=== PATIENT | female | born 1950 | race Caucasian/White ===

== ENCOUNTER 2017-01-21 06:07 | Inpatient (IN) ==
[2017-01-21] MEDS ORDERED: CeFAZolin Pre 2,000 MG/100 ML 2,000 MG/100 ML BAG IVPB ONE (06:33)
[2017-01-21] MEDS ORDERED: Plasma-Lyte A (PH 7.4) 1,000 ML IVC SCH (06:45)
--- NOTE | 2017-01-21 07:18 | Anesthesia Evaluation PreOp ---
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: Denies Any Significant HX Other Medical History: Renal (stage 3 CKD), Diabetes Type II, Thyroid, GERD Anesthesia History: No Prior Anesthetic Complications, Past Anesthesia ( hysterectomy) Alcohol Use: none Drug use: none Medications and Allergies Amlodipine [Amlodipine Besylate] 10 mg PO DAILY 11/28/14 [History] Lisinopril [Zestril] 20 mg PO BID 11/28/14 [History] Pravastatin Sodium [Pravachol] 20 mg PO DAILY 11/28/14 [History] Albuterol Sulfate [Albuterol Inhaler] 2 puff IH Q4HR PRN 01/11/15 [History] Gabapentin [Neurontin] 600 mg PO HS 01/11/15 [History] Meclizine [Antivert] 25 mg PO BID 01/11/15 [History] Melatonin [Melatin] 5 mg PO HS 01/11/15 [History] Montelukast [Singulair] 10 mg PO DAILY 01/11/15 [History] Vitamin B Complex [B Complex] 1 each PO DAILY 01/11/15 [History] Albuterol Neb [Proventil Neb] 2.5 mg IH QID PRN #120 inhsol 06/05/15 [Rx] Promethazine [Phenergan] 25 mg PO Q6HR PRN #10 tablet 12/10/16 [Rx] 3 Allergy/AdvReac Type Severity Reaction Status Date / Time acetaminophen Allergy Abdominal Verified 01/21/17 07:05 [From Darvocet-N 100] Pain aspirin Allergy Anaphylaxis Verified 01/21/17 07:05 Buspirone [From BuSpar] Allergy Rash Verified 01/21/17 07:05 caffeine Allergy Anaphylaxis Verified 01/21/17 07:05 chlorpromazine Allergy Itching Verified 01/21/17 07:05 [From Thorazine] codeine Allergy Itching Verified 01/21/17 07:05 lorazepam [From Ativan] Allergy Hives Verified 01/21/17 07:05 morphine Allergy Hives Verified 01/21/17 07:05 prochlorperazine Allergy Hives Verified 01/21/17 07:05 [From Compazine] propoxyphene [From Darvon] Allergy Abdominal Verified 01/21/17 07:05 Pain tramadol Allergy Nausea Verified 01/21/17 07:05 - Meds/Allergy Pre-op Review Medications Reviewed: Yes Allergies Reviewed: Yes Beta Blockers on Current Med List: Yes If Beta Blockers taken, Date/Time (Last Dose taken): 01/21/2017 at 0430 Anesthesia Results - Labs Laboratory Tests 09/03/16 12/19/16 01/14/17 15:34 16:41 16:00 WBC 11.3 H Hgb 10.3 L Hct 32.8 L Plt Count 271 PT 11.9 INR 1.1 APTT 31.2 Sodium Potassium BUN 15 Creatinine 1.33 H 01/14/17 16:00 WBC Hgb Hct Plt Count PT INR APTT Sodium 140 Potassium 4.1 BUN Creatinine - Imaging EKG: report reviewed (11/30/2016 SINUS RHYTHM MODERATE VOLTAGE CRITERIA FOR LVH, CONSIDER NORMAL VARIANT [MEETS CRITERIA IN ONE OF: R(aVL), S(V1), R(V5), R(V5/ V6)+S(V1)] ST DEVIATION AND MODERATE T-WAVE ABNORMALITY, CONSIDER ANTERIOR ISCHEMIA [-0.1+ mV T WAVE IN V3/V4]) Additional studies: 01/10/2015 Stress Impression: Pharmacologic stress ECG is non diagnostic for ischemia due to baseline non-specific ST and T changes. Gated EF > 70%. This study was negative for ischemia or infarct. 01/10/2015 Echo LVEF 60-65% mild LV diastolic dysfunction no significant valvular dysfunction trace TR, PI, and MR Anesthesia Exam O2 Sat Height 1.65 m Height 1.65 m Weight 82.1 kg Weight 82.1 kg O2 Sat by Pulse Oximetry 94 Vital Signs Temp Pulse Resp BP Pulse Ox 98.4 F 82 18 150/87 94 01/21/17 06:35 01/21/17 06:35 01/21/17 06:35 01/21/17 06:35 01/21/17 06:35 Blood glucose: 124 Height: 5'5'' Weight: 181 lbs NPO (# of Hours): 8 Pain Scale: 0 Pain Scale Used: Numeric (1 - 10) - HEENT Pupil (Motor): EOMI Mallampati: II Teeth: Normal Denture Type: Upper: Complete Oral Opening: Greater than 3 - SHELLFISH SHUCKER LOC: Oriented SHELLFISH SHUCKER Motor: Normal RUE, Normal LUE, Normal RLE, Normal LLE, Normal Face SHELLFISH SHUCKER Sensory: Normal: RUE, LUE, Face, Deficit: RLE, LLE - Cardiac Rhythm: Regular Murmur: Systolic - Pulmonary Breath Sounds: bilateral Clear Respiratory Effort: Symmetrical Anesthesia Assess/Plan ASA Score: 4 Modified [place] Scale for Level of Consciousness: Cooperative, oriented, and tranquil Anesthetic Plan: General Monitoring Plan: Standard Monitors Recovery Plan: PACU
[2017-01-21] MEDS ORDERED: Neostigmine Methylsulfate 3 MG/3 ML SYRINGE ONE (07:23)
[2017-01-21] MEDS ORDERED: *HR* FentaNYL (PF) 100 MCG/2 ML VIAL ONE (07:23)
[2017-01-21] MEDS ORDERED: Dexamethasone 4 MG/ML VIAL ONE (07:23)
[2017-01-21] MEDS ORDERED: Lidocaine -MPF 2% 2 ML VIAL ONE (07:23)
[2017-01-21] MEDS ORDERED: Lidocaine -MPF 4% 5 ML AMPUL ONE (07:23)
[2017-01-21] MEDS ORDERED: *HR* Succinylcholine 200 MG/10 ML VIAL IVP ONE (07:23)
[2017-01-21] MEDS ORDERED: *HR* Propofol 200 MG/20 ML VIAL IVP ONE (07:23)
[2017-01-21] MEDS ORDERED: Ondansetron 4 MG/2 ML VIAL ONE (07:23)
[2017-01-21] MEDS ORDERED: *HR* Rocuronium Bromide 50 MG/5 ML VIAL ONE ×2 (07:23→10:06)
[2017-01-21] MEDS ORDERED: *HR* Midazolam HCl 2 MG/2 ML VIAL ONE (07:23)
[2017-01-21] MEDS ORDERED: Lidocaine/EPI 1:100k 1% 50 ML VIAL INFILT ONE (07:27)
[2017-01-21] MEDS ORDERED: Bupivacaine/EPI 1:200k 0.5%PF 30 ML VIAL ONE (07:27)
[2017-01-21] MEDS ORDERED: Lidocaine/EPI 1:100k 1% 20 ML VIAL ONE (07:27)
--- NOTE | 2017-01-21 07:40 | History & Physical Report ---
Date of Encounter: 01/21/17 Time of Encounter: 07:40 24 Hour HP Update - Instructions Instructions: If the History and Physical is less than 30 days old and was completed prior to A.M. admission and or procedure and has NOT been updated on calendar day of procedure please complete this update prior to performing procedure. - Update Patient reports changes in Medical Condition: No Changes in examination, assessment, or condition: No Changes in Medication: No Preop tests/diagnostics Reviewed: Yes Surgery Remains Indicated: Yes Consent for Planned Operative Procedure(s) Verified: Yes - Pre-Operative Checklist Preoperative Checklist Indicated: Yes Prophylactic Antibiotic Ordered: Yes Home Medications Include Beta Donavan: Yes Beta Donavan Taken Today (Day of Surgery): Yes Beta Donavan Taken Yesterday (Day Prior to Surgery): Yes Is VTE Prophylaxis Indicated?: Yes
[2017-01-21] MEDS ORDERED: Famotidine 20 MG/2 ML VIAL ONE (07:44)
[2017-01-21] MEDS ORDERED: *HR* Promethazine 25 MG/ML VIAL ONE (07:45)
[2017-01-21] MEDS ORDERED: *HR* HYDROmorphone 2 MG/ML SYRINGE ONE (08:55)
[2017-01-21] MEDS ORDERED: *HR* Promethazine 25 MG/ML VIAL IVP PRN (09:40)
[2017-01-21] MEDS ORDERED: Piperacillin/Tazobactam 3.375 GM in D5% in Water 100 ML IVPB ONE (10:03)
[2017-01-21] MEDS ORDERED: EPHEDrine 50 MG/ML VIAL ONE (12:12)
[2017-01-21] MEDS ORDERED: *HR* Dextrose 50 % in Water (Syg) 50 ML SYRINGE IVP PRN ×2 (13:28→17:53)
[2017-01-21] MEDS ORDERED: D5% in Water 1,000 ML IVC PRN ×2 (13:28→17:53)
[2017-01-21] MEDS ORDERED: Dextrose Gel 15 GM PO PRN ×4 (13:28→17:53)
[2017-01-21] MEDS: *HR* HYDROmorphone (PF) 1 MG/ML SYRINGE IVP PRN ×7 (14:06→23:54)
[2017-01-21] MEDS ORDERED: Ringers Solution, Lactated 1,000 ML ONE (14:32)
--- NOTE | 2017-01-21 14:57 | Operative Note ---
Date of procedure: 01/21/17 Pre-op diagnosis: small bowel enterotomy Post-op diagnosis: same Procedure: Lysis of adhesions for over 1 hr, small bowel resection with primary anastomosis. Complications: none immediate Anesthesia: GUY Surgeon: Brenda Abdi Quality Control Tech: Lupis Ruiz Quality Control Tech Other: Salbador Mc Estimated blood loss (cc): 20 Specimen: small bowel Condition: stable Disposition: no change Procedure in Detail: I was called into the operating suite by Dr. Mc for potential bowel injury. After scrubbing and presenting to the OR table the patient was already under general anesthesia. She had undergone a Pfannenstiel incision which was open to the abdominal cavity. Small bowel was present within the wound. Babcocks were placed on the small bowel at the enterotomy site. There was no obvious spillage of any enteric contents. I began by freeing up the small bowel which contained the enterotomy. There was significant adhesions between small bowel and small bowel, as well as small bowel and the anterior abdominal wall.. Lysis of adhesions was performed for over an hour freeing up enough segment of the small bowel to be able to perform resection and anastomosis. Due to the significant adhesions within the abdominal cavity we were and able to determine which and of the small bowel was proximal and which end was distal. An opening in the mesentery was made on either side of the small bowel enterotomy several centimeters from the enterotomy with the Bovie. At each aspect the small bowel was transected with a linear WENDY-75 stapler blue load. The small bowel was then resected off the mesentery with the impact LigaSure. A [id number]-[id number] anastomosis was constructed first trimming the ends of the small bowel with heavy curved scissors. The common channel was created with a linear WENDY-75 stapler blue load, the stapler did not fire the full length of the device but stopped approximately [address] The common channel anastomosis was evaluated and the staple lines appeared to be intact. A 3-0 silk crotch stitch was placed. The openings of the small bowel were closed first with a 3-0 Vicryl running locked stitch closing the mucosa. The suture line was then reinforced with 3-0 silk Lembert stitches. The anastomosis opening was palpated to be patent. The abdomen was irrigated with sterile saline. The small bowel was placed back within the abdominal cavity. At this point the case was then turned back over to Dr. Mc.
--- NOTE | 2017-01-21 15:16 | Anesthesia Evaluation Post Op ---
Date of Encounter: 01/21/17 Time of Encounter: 15:14 - Vital Signs Vital Signs: Vital Signs/O2 Sat, Most Current Temp Pulse Resp BP Pulse Ox 98.0 F 95 18 129/78 96 01/21/17 14:45 01/21/17 15:05 01/21/17 15:05 01/21/17 15:05 01/21/17 15:05 - Lungs Lungs: Clear Ascult./Percussion - Airway Airway: Non-obstructed - Cardiovascular Regular Rate - Mental Status Mental Status: Asleep with brisk response to light stimulation - Pain Pain Scale: 7 Pain Scale used: Numeric (1 - 10) - Nausea Vomiting Nausea Vomiting: Not Present - Hydration Hydration: NPO, Coyle catheter - Discharge PostOp Status: Transfer Patient to floor
[2017-01-21] MEDS ORDERED: Naloxone 0.4 MG/ML INJ IVP PRN (15:48)
[2017-01-21] MEDS ORDERED: *HR* OxyCODONE Immed Rel 5 MG TABLET PO PRN (15:48)
[2017-01-21] MEDS ORDERED: Ibuprofen 600 MG TABLET PO PRN (15:48)
[2017-01-21] MEDS ORDERED: Piperacillin/Tazobactam 3.375 GM in D5% in Water (Mini-Bag+) 100 ML IVPB SCH (16:00)
--- NOTE | 2017-01-21 16:20 | OB/GYN Procedure Note ---
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 Post-op diagnosis: same - Procedure Procedure: Laprotomy with VIVIANE, enterotomy with side to side reanastamosis, A&P repai Surgeon: Salbador Mc (Spahn consult intraop) Continuous Miner Operator: Linda Burton Anesthesia Type: General Estimated blood loss (cc): 200 Procedure Complications: Incidental enterotomy Specimens collected: Portion of small bowel Disposition: PACU Findings: Dense pelvic adhesions with "frozen pelvis" Narrative: Patient's a 66-year-old female who presented to my office with complaint of third to fourth degree cystocele first to second-degree rectocele. She is quite symptomatic from the cystocele and failed conservative management. She had previous hysterectomy as well as previous bladder suspension and rectocele repair. After her hysterectomy she did have unrecognized bowel injury was later taken back with intrapelvic infection for bowel repair. This was back in 1980. We did discussed with patient operative options including anterior and posterior pair versus sacral colpopexy. She is young and active and therefore she did elect for attempted sacral colpopexy. She was aware that there was high risk of adhesions and the this may not be possible and we may need to perform anterior and posterior repair. She was wearing operative risks and signed appropriate consent. She also had stress incontinence and desired tension-free vaginal taping. Description procedure: Patient was taken operating room where general anesthesia was administered. She was prepped draped in usual sterile fashion. Bladder was drained of clear urine. Underlying station third to fourth degree cystocele was noted was anterior vaginal wall prolapse in 2-3 cm beyond the introitus. So first to second-degree rectocele. Because we would later changed the anterior vaginal wall after performed sacral colpopexy was begun was the beginning portion of the TVT. 30 mL of dilute local was injected behind the symphysis pubis in the left and right lower abdomen approximately 3- 4 cm lateral to the midline on each side. Small stab wounds were made. Bladder was again drained and with a 30 mL balloon in the bladder mid urethral portion anterior vaginal wall was noted. I injected the submucosa with dilute local behind the symphysis pubis along the anterior vaginal wall on the left and right side. After ensuring the bladder was drained catheter guidewire in the catheter I deflected the patient's bladder towards her left side with one gloved in the vagina I placed the advantage fit TVT through the suburethral incision and along the anterior vaginal wall just behind the symphysis pubis and out through the right lower abdominal incision. I then deflected the patient's bladder towards her right side with a guidewire and with one gloved hand in the vagina I displaced the bladder further towards the right. I placed the advantage fit through the suburethral incision ran along the anterior vaginal wall submucosally on the symphysis pubis and out the left lower abdominal incision catheters removed cystoscopy was performed. There was strong ureteral jets bilaterally no evidence of bladder trauma. Pulled the mesh up loosely left to later be tightened after the sacral colpopexy. This point we changed gowns and gloves bladder was drained with Coyle catheter. Pfannenstiel skin incision was made this was sharply taken down the rectus fascia fascia was incised bilaterally. Rectus muscles divided in the midline. Peritoneum was tented upwards we did see the bowel quadrant quite adherent to the peritoneum along the midline I did notice a free area out to the left of the midline and tenting the peritoneum upwards I did sharply entered the peritoneal peritoneum and extended the peritoneum slightly bilaterally. The patient was in steep Trendelenburg position. Was able to place to fingers into the posterior cul-de-sac and noted to be completely frozen with multiple small bowel adhesions. Tenting the peritoneum upwards I can also see that there were multiple adhesions of bowel along the anterior vaginal wall. Decision was made removed 1 to proceed with the anterior and posterior pair and not attempt abdominal procedure any further. This time we were getting ready close the fascia and it was noted the enterotomy had been performed in the small bowel. There is no gross spillage of stool. I did consult Dr. Abdi was able to come within just a couple minutes to the operating room. She did scrub in and perform further lysis of adhesions and side to side reanastomosis of the small bowel. Please see her portion of the dictation for this portion of the procedure. After Dr. Abdi was finished I did close the fascia with 0 loop PDS.. Further irrigation was performed and the skin edges reapproximated with charley. This point we proceeded with anterior repair. A pulled the vaginal apex down near the opening placed Sidney clamps on each side of the vaginal apex. These were pulled downwards and injected the anterior vaginal wall support mucosa with 1% lidocaine with epinephrine I then mated inverted T-incision through the vaginal mucosa and dissected down submucosally. Several Sidney clamps were placed along the incision along the entire anterior abdominal wall and I dissected out laterally to the vesicovaginal fascia. In dissecting upwards towards the vaginal cuff I did enter the peritoneum. Peritoneum was reapproximated with 4-0 Vicryl in a running pursestring stitch. Once this was closed off I used several interrupted stitches with 2-0 Vicryl to reapproximate the vesicovaginal fascia on the left side to the right side. Once this was pulled together and transected excess vaginal mucosa and reapproximated this with several stitches with 3-0 Vicryl along the entire anterior abdominal wall. This did provide excellent anterior abdominal wall support. There was a small rectocele I did place curved Sidney clamps on each side of the posterior vaginal fourchette and injected posterior vaginal mucosa with 1% lidocaine with epinephrine millimeter avelina-shaped incision at the posterior fourchette. Undermine the vaginal mucosa with Metzenbaum scissors and a vertical incision along the posterior vaginal wall and dissected out the rectovaginal fascia on each side. Several interrupted 2-0 Vicryl's were used to reapproximate the rectovaginal fascia from the left of the right side. Excess vaginal mucosa was resected and the vaginal mucosa was reapproximated using 3-0 Vicryl. This point there was limited oozing along the posterior fourchette several interrupted 3-0 Vicryl's were placed and hemostasis was ensured I did place a vaginal packing. I did replace the catheter and the urine was slightly blood- tinged. Catheter was removed and cystoscopy was again performed there was strong ureteral jets of clear urine on each side and there is no evidence of bladder trauma. Cystoscope was removed catheter was replaced. All sponge and instruments counts are correct. Because of the multiple steps taken in multiple points da Shadi used x-ray was performed of abdomen showed no evidence of retained foreign bodies. Patient was taken recovery in good condition.
[2017-01-21] MEDS ORDERED: Insulin LISPRO 300 UNITS/3 ML VIAL SQ SCH (18:00)
[2017-01-21] MEDS: Insulin LISPRO 300 UNITS/3 ML VIAL SQ SCH (18:26)
[2017-01-21] MEDS: Piperacillin/Tazobactam 3.375 GM in D5% in Water (Mini-Bag+) 100 ML IVPB SCH (20:43)
[2017-01-21] MEDS ORDERED: Gabapentin 300 MG CAPSULE PO SCH (21:00)
[2017-01-21] MEDS ORDERED: *HR* Metformin 500 MG TABLET PO SCH (21:00)
[2017-01-21] MEDS: 0.9 % Sodium Chloride 1,000 ML IVC SCH (23:54)
[2017-01-22] MEDS ORDERED: Piperacillin/Tazobactam 3.375 GM in D5% in Water (Mini-Bag+) 100 ML IVPB SCH
[2017-01-22 05:02] LABS: Basophils # 0.1 K/mcL (0.0-0.2); Basophils % 0.4 %; Eosinophils % 0.3 %; Hematocrit 28.9 % (35.3-44.9); Hemoglobin 9.1 g/dL (11.5-15.4); Immature Granulocytes % 0.4 % (0-4); Lymphocytes # 1.8 K/mcL (0.6-4.6); Lymphocytes % 15.4 %; Mean Corpuscular HGB Conc 31.5 g/dL (31.6-35.5); Mean Corpuscular Hemoglobin 29.9 pg (28.0-33.3); Mean Corpuscular Volume 95.1 fL (83.0-100.0); Mean Platelet Volume 9.3 fL (9.4-12.4); Monocytes # 0.8 K/mcL (0.0-1.3); Neutrophils # 8.7 K/mcL (1.6-8.9); Platelet Count 245 K/mcL (140-400); Red Blood Count 3.04 M/mcL (3.82-4.97); Red Cell Distribution Width 13.6 % (11.5-14.5); Segmented Neutrophils % 76.5 %
[2017-01-22] MEDS: *HR* HYDROmorphone (PF) 1 MG/ML SYRINGE IVP PRN ×7 (05:04→20:33)
[2017-01-22] MEDS: Piperacillin/Tazobactam 3.375 GM in D5% in Water (Mini-Bag+) 100 ML IVPB SCH ×3 (05:05→20:30)
[2017-01-22] MEDS: Insulin LISPRO 300 UNITS/3 ML VIAL SQ SCH ×5 (05:45→20:36)
--- NOTE | 2017-01-22 08:29 | OB/GYN Progress Note ---
Date of Encounter: 01/22/17 Time of Encounter: 08:25 - Assessment and Plan (1) Pelvic organ prolapse quantification stage 4 cystocele Current Visit: Yes Status: Acute Pt s/p anterior and posterior repair. (2) Diabetes type 2, controlled Current Visit: No Status: Chronic Pt's blood sugars are under control on SSI, not requiring any coverage Qualifiers: Diabetes mellitus complication status: without complication Diabetes mellitus senior living insulin use: without senior living use Qualified Code(s): E11.9 - Type 2 diabetes mellitus without complications (3) Iatrogenic enterotomy Current Visit: Yes Status: Acute Pt s/p partial small bowel resection with side to side repair by Dr. Abdi. + BS, + flatus. Remains NPO. No s/sx's of infection at this time. (4) Anxiety Current Visit: Yes Status: Acute Will try IV Valium as she is allergic to Ativan. Subjective - Subjective Principal diagnosis: s/p A&P repair, Laparotomy with enterotomy repair Interval history: Pt reports poor pain control over night. States incision feels ok, but she is having spasms of pain along the side. + flatus. Was up in chair but c/o pain. No n/v. No fever or chills. Pt has lots of trepidations about her recovery. She stated she didn't feel she would want to get up to bathroom and that she would "just pee the bed". 2 imitrex and muscle celebrex were found in her bed. She was advised that she is NPO and that she can't take her own meds without telling us. She declines WARE at this time. Patient reports: pain poorly controlled (Mostly peritoneal pain, incisional pain is good.) Objective - Vital Signs Latest vital signs: Vital Signs Temp Pulse Pulse Resp BP Pulse Ox 01/22/17 05:56 18 01/22/17 04:00 98.3 F 89 14 179/88 96 01/22/17 00:09 18 01/22/17 00:00 98.6 F 100 14 161/85 97 01/21/17 21:03 96 18 01/21/17 20:00 98.4 F 97 14 160/89 97 01/21/17 18:50 98.9 F 109 16 156/94 01/21/17 17:45 98.1 F 94 18 125/73 100 01/21/17 16:45 98.5 F 98 20 161/92 95 01/21/17 16:15 98.5 F 101 16 141/85 98 01/21/17 15:45 98.2 F 96 20 137/82 98 01/21/17 15:25 91 18 133/79 97 01/21/17 15:15 97.6 F 93 18 136/71 96 01/21/17 15:05 95 18 129/78 96 01/21/17 14:55 87 18 127/74 96 01/21/17 14:45 98.0 F 91 20 143/84 98 01/21/17 14:35 90 20 154/93 99 01/21/17 14:25 86 18 143/83 99 01/21/17 14:15 96.8 F L 85 20 131/78 99 01/21/17 14:05 83 22 129/79 100 01/21/17 13:55 80 16 136/76 100 01/21/17 13:45 97.0 F L 73 16 122/73 100 Intake and Output 01/21/17 01/22/17 01/22/17 23:59 07:59 15:59 Intake Total 100 / 100 Output Total 150 / 150 800 / 800 Balance -150 / -150 -700 / -700 Intake: IV Fluids 100 / 100 Zosyn 3.375 GM In Dextrose 5% ( 100 / 100 Minibag+) 100 ML 100 ML @ 25 mls/hr IVPB Q8H [facility] Rx#: [id number] Output: Catheter 150 / 150 800 / 800 Other: Weight 82.9 kg Blood Glucose* 108 101 Patient Weight 01/22/17 23:59 Weight 82.9 kg - I&O's I&O's: Intake & Output 01/19/17 01/20/17 01/21/17 01/22/17 23:59 23:59 23:59 23:59 Intake Total 100 / 100 Output Total 400 / 400 800 / 800 Balance -400 / -400 -700 / -700 Weight 82.3 kg 82.9 kg - Exam Lungs: bilateral: normal Chest: Normal S1, Normal S2 Extremities: Present: normal Abdomen: Present: soft Incision OB: Present: dressed - Labs Labs: Abnormal lab results WBC 11.4 K/mcL (4.3-11.1) H 01/22/17 04:49 RBC 3.04 M/mcL (3.82-4.97) L 01/22/17 04:49 Hgb 9.1 g/dL (11.5-15.4) L 01/22/17 04:49 Hct 28.9 % (35.3-44.9) L 01/22/17 04:49 MCHC 31.5 g/dL (31.6-35.5) L 01/22/17 04:49 MPV 9.3 fL (9.4-12.4) L 01/22/17 04:49 POC Glucose 106 (58-89) H 01/22/17 05:12 Consult Discharge Plan - Plan Referrals: Mary Puri DO [Primary Care Provider] -
[2017-01-22 08:31] LABS: Calcium 8.4 mg/dL (8.6-10.8); Magnesium 1.4 mg/dL (1.6-2.6); Phosphorous 2.7 mg/dL (2.3-4.7); Potassium 3.6 mEq/L (3.5-4.5)
[2017-01-22] MEDS ORDERED: Furosemide 20 MG TABLET PO SCH (09:00)
[2017-01-22] MEDS ORDERED: Loratadine 10 MG TABLET PO SCH (09:00)
[2017-01-22] MEDS: Ondansetron 4 MG/2 ML VIAL IVP PRN (09:43)
[2017-01-22] MEDS: Simethicone 80 MG TAB.CHEW PO PRN ×2 (09:44→18:08)
--- NOTE | 2017-01-22 09:55 | General Surgery Progress Note ---
<Airam Hilario Carlos - Last Filed: 01/22/17 09:56> Date of Encounter: 01/22/17 Time of Encounter: 09:00 - Assessment and Plan (1) Injury to small intestine Current Visit: Yes Status: Acute POD #1 Lysis of adhesions for over 1 hr, small bowel resection with primary anastomosis with Dr. Abdi NPO except ice chips while awaiting return of bowel function IV fluids- 125ml/hour IV antibiotics- Zosyn Increase activity as tolerated- out of bed to chair TID IS every 1 hour while awake Supportive care and pain control- scheduled Ofirmev every 6 hours for the next 48 hours, Dilaudid every 2 hours prn PPI therapy daily Repeat am labs Qualifiers: Encounter type: subsequent encounter Qualified Code(s): S36.409D - Unspecified injury of unspecified part of small intestine, subsequent encounter (2) Diabetes type 2, controlled Current Visit: No Status: Chronic Glucose controlled this morning Continue SSI as ordered Qualifiers: Diabetes mellitus complication status: without complication Diabetes mellitus senior living insulin use: without senior living use Qualified Code(s): E11.9 - Type 2 diabetes mellitus without complications (3) Abdominal pain Current Visit: No Status: Resolved Dilaudid changed to every 2 hours prn Ofirmev scheduled every 6 hours for the next 48 hours Qualifiers: Abdominal location: generalized Qualified Code(s): R10.84 - Generalized abdominal pain (4) DVT prophylaxis Current Visit: Yes Status: Acute EPCDs to bilateral lower extremities for DVT prophylaxis Increase activity as tolerated Subjective Patient reports: still having pain (patient reports that surgical pain is not well controlled), voiding w/o difficulty (has voided 1 time since tapia removed this morning), flatus, no bowel movement, afebrile, other (Out of bed to chair) Objective Vital Signs - Last 8 Hours Temp Pulse Resp BP Pulse Ox 01/22/17 05:56 18 01/22/17 04:00 98.3 F 89 14 179/88 96 Intake and Output 01/21/17 01/22/17 01/22/17 23:59 07:59 15:59 Intake Total 100 / 100 Output Total 150 / 150 800 / 800 Balance -150 / -150 -700 / -700 Intake: IV Fluids 100 / 100 Zosyn 3.375 GM In Dextrose 5% ( 100 / 100 Minibag+) 100 ML 100 ML @ 25 mls/hr IVPB Q8H [facility] Rx#: [id number] Output: Catheter 150 / 150 800 / 800 Other: Weight 82.9 kg Blood Glucose* 108 101 Patient Weight 01/22/17 23:59 Weight 82.9 kg - General physical appearance well developed, well nourished, moderate pain - Eyes normal ocular movement - ENT normal mucosa, atraumatic, normocephalic - Neck Neck exam: trachea midline - Respiratory normal respiratory effort, clear to auscultation, other (diminished bibasilar bases) - Cardiovascular Cardiovascular exam: Present: RRR - Abdomen Abdomen: Present: bowel sounds present (minimal, hypoactive), soft, tender ( expected post-operative tenderness) - Incision Incision: Present: clean and dry, intact - Neurologic CN 2-12 grossly intact - Psychiatric oriented to time, oriented to person, oriented to place, speech is normal, memory intact - Labs 01/22/17 04:49 01/22/17 07:51 Diabetes panel 01/22/17 Range/Units 07:51 Sodium 141 (136-145) mEq/L Potassium 3.6 (3.5-4.5) mEq/L Chloride 111 H (98-109) mEq/L Carbon Dioxide 22 (19-29) mEq/L BUN 14 (7-20) mg/dL Creatinine 1.28 H (0.57-1.11) mg/dL Glucose 122 H (70-99) mg/dL Calcium 8.4 L (8.6-10.8) mg/dL Calcium panel 01/22/17 Range/Units 07:51 Calcium 8.4 L (8.6-10.8) mg/dL Phosphorus 2.7 (2.3-4.7) mg/dL Pituitary panel 01/22/17 Range/Units 07:51 Sodium 141 (136-145) mEq/L Potassium 3.6 (3.5-4.5) mEq/L Chloride 111 H (98-109) mEq/L Carbon Dioxide 22 (19-29) mEq/L BUN 14 (7-20) mg/dL Creatinine 1.28 H (0.57-1.11) mg/dL Glucose 122 H (70-99) mg/dL Calcium 8.4 L (8.6-10.8) mg/dL Adrenal panel 01/22/17 Range/Units 07:51 Sodium 141 (136-145) mEq/L Potassium 3.6 (3.5-4.5) mEq/L Chloride 111 H (98-109) mEq/L Carbon Dioxide 22 (19-29) mEq/L BUN 14 (7-20) mg/dL Creatinine 1.28 H (0.57-1.11) mg/dL Glucose 122 H (70-99) mg/dL Calcium 8.4 L (8.6-10.8) mg/dL - VTE Documentation of Mechanical Device: Intermittent pneumatic compression device Consult Discharge Plan - Plan Referrals: Mary Puri DO [Primary Care Provider] - - Attending Attestation For this encounter, I have reviewed the YARDING AND FOLDING MACHINE OPERATOR or PA documentation, treatment plan, and medical decision making; and I have had face to face time with this patient. <Brenda Abdi - Last Filed: 01/22/17 10:34> Date of Encounter: 01/22/17 - Assessment and Plan (1) Iatrogenic enterotomy Current Visit: Yes Status: Acute pod 1 small bowel resection and primary repair npo, ivf hydration, ok po meds increase dilaudid to q2 hr prn pain and added toradol, if pain control doesnt improve may need pharmacy resident OOB to chair (2) Abdominal pain Current Visit: No Status: Resolved added toradol too Qualifiers: Abdominal location: generalized Qualified Code(s): R10.84 - Generalized abdominal pain (3) HTN (hypertension) Current Visit: Yes Status: Chronic on home medication, will add beta carmen prn as pt is still hypertensive Qualifiers: Hypertension type: essential hypertension Qualified Code(s): I10 - Essential (primary) hypertension Subjective Patient reports: still having pain, flatus, no bowel movement, afebrile Objective Vital Signs - Last 8 Hours Temp Pulse Resp BP Pulse Ox 01/22/17 05:56 18 01/22/17 04:00 98.3 F 89 14 179/88 96 Intake and Output 01/21/17 01/22/17 01/22/17 23:59 07:59 15:59 Intake Total 100 / 100 Output Total 150 / 150 800 / 800 Balance -150 / -150 -700 / -700 Intake: IV Fluids 100 / 100 Zosyn 3.375 GM In Dextrose 5% ( 100 / 100 Minibag+) 100 ML 100 ML @ 25 mls/hr IVPB Q8H [facility] Rx#: [id number] Output: Catheter 150 / 150 800 / 800 Other: Weight 82.9 kg Blood Glucose* 108 101 Patient Weight 01/22/17 23:59 Weight 82.9 kg - General physical appearance well developed, well nourished, moderate distress, moderate pain - Eyes PERRL, normal ocular movement - ENT normal mucosa, atraumatic - Neck Neck exam: trachea midline - Respiratory normal respiratory effort - Cardiovascular Cardiovascular exam: Present: RRR - Abdomen Abdomen: Present: bowel sounds present, soft, tender Abdominal Tenderness: diffusely - Incision Incision: Present: clean and dry, intact - Integumentary no rash, no growths - Neurologic CN 2-12 grossly intact - Musculoskeletal normal posture - Psychiatric oriented to time - Labs 01/22/17 04:49 01/22/17 07:51 Short CBC 01/22/17 Range/Units 04:49 WBC 11.4 H (4.3-11.1) K/mcL Hgb 9.1 L (11.5-15.4) g/dL Hct 28.9 L (35.3-44.9) % Plt Count 245 (140-400) K/mcL Neutrophils # 8.7 (1.6-8.9) K/mcL BMP 01/22/17 Range/Units 07:51 Sodium 141 (136-145) mEq/L Potassium 3.6 (3.5-4.5) mEq/L Chloride 111 H (98-109) mEq/L Carbon Dioxide 22 (19-29) mEq/L BUN 14 (7-20) mg/dL Creatinine 1.28 H (0.57-1.11) mg/dL Glucose 122 H (70-99) mg/dL Calcium 8.4 L (8.6-10.8) mg/dL Vital Signs Temp Pulse Pulse Resp BP Pulse Ox 01/22/17 05:56 18 01/22/17 04:00 98.3 F 89 14 179/88 96 01/22/17 00:09 18 01/22/17 00:00 98.6 F 100 14 161/85 97 01/21/17 21:03 96 18 01/21/17 20:00 98.4 F 97 14 160/89 97 01/21/17 18:50 98.9 F 109 16 156/94 10/23/17 17:45 98.1 F 94 18 125/73 100 01/21/17 16:45 98.5 F 98 20 161/92 95 01/21/17 16:15 98.5 F 101 16 141/85 98 01/21/17 15:45 98.2 F 96 20 137/82 98 01/21/17 15:25 91 18 133/79 97 01/21/17 15:15 97.6 F 93 18 136/71 96 01/21/17 15:05 95 18 129/78 96 01/21/17 14:55 87 18 127/74 96 01/21/17 14:45 98.0 F 91 20 143/84 98 01/21/17 14:35 90 20 154/93 99 01/21/17 14:25 86 18 143/83 99 01/21/17 14:15 96.8 F L 85 20 131/78 99 01/21/17 14:05 83 22 129/79 100 01/21/17 13:55 80 16 136/76 100 01/21/17 13:45 97.0 F L 73 16 122/73 100 Intake and Output 01/21/17 01/22/17 01/22/17 23:59 07:59 15:59 Intake Total 100 / 100 Output Total 150 / 150 800 / 800 Balance -150 / -150 -700 / -700 Intake: IV Fluids 100 / 100 Zosyn 3.375 GM In Dextrose 5% ( 100 / 100 Minibag+) 100 ML 100 ML @ 25 mls/hr IVPB Q8H [facility] Rx#: [id number] Output: Catheter 150 / 150 800 / 800 Other: Weight 82.9 kg Blood Glucose* 108 101 Patient Weight 01/22/17 23:59 Weight 82.9 kg - Attending Attestation I have personally performed a face to face evaluation on this patient. I have reviewed and agree with the care plan. History and Exam by me shows:
[2017-01-22] MEDS ORDERED: *HR* Promethazine 25 MG/ML VIAL IVP PRN (10:07)
[2017-01-22] MEDS: diazePAM 10 MG/2 ML SYRINGE IVP PRN ×2 (10:15→15:05)
[2017-01-22] MEDS ORDERED: Insulin LISPRO 300 UNITS/3 ML VIAL SQ SCH (12:00)
[2017-01-22] MEDS ORDERED: Ketorolac 30 MG/ML VIAL IVP SCH (12:00)
[2017-01-22] MEDS: Acetaminophen IV 1,000 MG/100 ML INFUS..BTL IVPB SCH ×3 (12:02→23:50)
[2017-01-22] MEDS: Albuterol 2.5 MG/3 ML NEBULIZER IH PRN ×2 (13:21→22:44)
[2017-01-22] MEDS ORDERED: SUMAtriptan succinate 50 MG TABLET PO ONE (16:58)
[2017-01-22] MEDS ORDERED: *HR* HYDROmorphone 20 MG/20 ML PCA IVC PRN (23:32)
--- NOTE | 2017-01-22 23:37 | OB/GYN Progress Note ---
Date of Encounter: 01/22/17 Time of Encounter: 23:34 - Assessment and Plan (1) Pelvic organ prolapse quantification stage 4 cystocele Current Visit: Yes Status: Acute Pt s/p anterior and posterior repair. (2) Diabetes type 2, controlled Current Visit: No Status: Chronic Pt's blood sugars are under control on SSI, not requiring any coverage Qualifiers: Diabetes mellitus complication status: without complication Diabetes mellitus long-term insulin use: without terminal block assembler use Qualified Code(s): E11.9 - Type 2 diabetes mellitus without complications (3) Iatrogenic enterotomy Current Visit: Yes Status: Acute Pt s/p partial small bowel resection with side to side repair by Dr. Abdi. + BS, + flatus. Remains NPO. No s/sx's of infection at this time. (4) Anxiety Current Visit: Yes Status: Acute Will try IV Valium as she is allergic to Ativan. (5) Post-operative pain Current Visit: Yes Status: Acute Pt with multiple allergies and elevated creatinine which limits our options. Will try Dilaudid FREELANCE WRITER and see if this helps control her pain while NPO. Hopefully once can take PO we will find PO alternative that provides longer pain relief. Subjective - Subjective Principal diagnosis: s/p laparotomy and A& P repair Interval history: Pt c/o still with significant suprapubic pain and now with pruritis. Pain was well controlled earlier with the Ofirmev and Dilaudid. Has been up in chair and ambulated. + flatus. Objective - Vital Signs Latest vital signs: Vital Signs Temp Pulse Pulse Resp BP Pulse Ox 01/22/17 22:45 16 96 01/22/17 22:00 91 169/89 01/22/17 20:58 74 01/22/17 20:20 98.1 F 83 14 172/103 96 01/22/17 16:04 98.2 F 86 16 151/84 98 01/22/17 13:26 16 97 01/22/17 12:29 98.3 F 85 16 147/81 97 01/22/17 10:53 97.6 F 95 20 169/109 97 01/22/17 05:56 18 01/22/17 04:00 98.3 F 89 14 179/88 96 01/22/17 00:09 18 01/22/17 00:00 98.6 F 100 14 161/85 97 Intake and Output 01/22/17 01/22/17 01/22/17 07:59 15:59 23:59 Intake Total 100 / 100 200 / 200 100 / 100 Output Total 800 / 800 900 / 900 Balance -700 / -700 200 / 200 -800 / -800 Intake: IV Fluids 100 / 100 200 / 200 100 / 100 Ofirmev 1,000 mg/100 ml 1,000 100 / 100 mg In 100 ml @ 400 mls/hr IVPB Q6H [facility] Rx#:[id number] Zosyn 3.375 GM In Dextrose 5% ( 100 / 100 100 / 100 100 / 100 Minibag+) 100 ML 100 ML @ 25 mls/hr IVPB Q8H [facility] Rx#: [id number] Output: Urine 900 / 900 Catheter 800 / 800 Other: Weight 82.9 kg Blood Glucose* 101 111 99 Patient Weight 01/22/17 23:59 Weight 82.9 kg - I&O's I&O's: Intake & Output 01/19/17 01/20/17 01/21/17 01/22/17 23:59 23:59 23:59 23:59 Intake Total 400 / 400 Output Total 700 / 700 1700 / 1700 Balance -700 / -700 -1300 / -1300 Weight 82.3 kg 82.9 kg - Exam Lungs: bilateral: normal Chest: Normal S1, Normal S2 Abdomen: Present: soft, tenderness Incision OB: Present: dressed - Labs Labs: Abnormal lab results WBC 11.4 K/mcL (4.3-11.1) H 01/22/17 04:49 RBC 3.04 M/mcL (3.82-4.97) L 01/22/17 04:49 Hgb 9.1 g/dL (11.5-15.4) L 01/22/17 04:49 Hct 28.9 % (35.3-44.9) L 01/22/17 04:49 MCHC 31.5 g/dL (31.6-35.5) L 01/22/17 04:49 MPV 9.3 fL (9.4-12.4) L 01/22/17 04:49 Chloride 111 mEq/L (98-109) H 01/22/17 07:51 Creatinine 1.28 mg/dL (0.57-1.11) H 01/22/17 07:51 Est GFR ( Amer) 51 (> 60) L 01/22/17 07:51 Est GFR (Non-Af Amer) 42 (> 60) L 01/22/17 07:51 Glucose 122 mg/dL (70-99) H 01/22/17 07:51 POC Glucose 99 (58-89) H 01/22/17 20:23 Calcium 8.4 mg/dL (8.6-10.8) L 01/22/17 07:51 Magnesium 1.4 mg/dL (1.6-2.6) L 01/22/17 07:51 Consult Discharge Plan - Plan Referrals: Mary Puri DO [Primary Care Provider] -
[2017-01-22] MEDS ORDERED: Methyl Salicylate/Menthol 28 GM TUBE TP PRN (23:39)
[2017-01-23] MEDS: Simethicone 80 MG TAB.CHEW PO PRN ×2 (02:26→21:31)
[2017-01-23] MEDS: diazePAM 10 MG/2 ML SYRINGE IVP PRN (02:26)
[2017-01-23] MEDS: Insulin LISPRO 300 UNITS/3 ML VIAL SQ SCH ×5 (03:18→19:34)
[2017-01-23] MEDS: Piperacillin/Tazobactam 3.375 GM in D5% in Water (Mini-Bag+) 100 ML IVPB SCH ×3 (03:51→19:05)
[2017-01-23] MEDS: Acetaminophen IV 1,000 MG/100 ML INFUS..BTL IVPB SCH ×4 (03:53→23:16)
[2017-01-23 06:40] LABS: Basophils % 0.3 %; Eosinophils # 0.8 K/mcL (0.0-0.6); Eosinophils % 8.3 %; Hematocrit 24.5 % (35.3-44.9); Hemoglobin 7.8 g/dL (11.5-15.4); Immature Granulocytes % 0.4 % (0-4); Lymphocytes # 1.3 K/mcL (0.6-4.6); Lymphocytes % 13.2 %; Mean Corpuscular HGB Conc 31.8 g/dL (31.6-35.5); Mean Corpuscular Hemoglobin 29.8 pg (28.0-33.3); Mean Corpuscular Volume 93.5 fL (83.0-100.0); Mean Platelet Volume 9.5 fL (9.4-12.4); Monocytes # 0.6 K/mcL (0.0-1.3); Monocytes % 5.7 %; Neutrophils # 6.9 K/mcL (1.6-8.9); Platelet Count 180 K/mcL (140-400); Red Blood Count 2.62 M/mcL (3.82-4.97); Red Cell Distribution Width 13.9 % (11.5-14.5); Segmented Neutrophils % 72.1 %
[2017-01-23 06:51] LABS: BUN/Creatinine Ratio 9 (6-26); Blood Urea Nitrogen 9 mg/dL (7-20); Calcium 7.9 mg/dL (8.6-10.8); Carbon Dioxide 22 mEq/L (19-29); Chloride 111 mEq/L (98-109); Glucose 109 mg/dL (70-99); Osmolality,Calculated 287 (280-300); Potassium 3.4 mEq/L (3.5-4.5); Sodium 139 mEq/L (136-145); eGFR For African Americans > 60 (> 60); eGFR For Non-African Americans 55 (> 60)
[2017-01-23] MEDS: 0.9 % Sodium Chloride 1,000 ML IVC SCH ×3 (06:52→23:15)
--- NOTE | 2017-01-23 07:56 | OB/GYN Progress Note ---
Date of Encounter: 01/23/17 Time of Encounter: 07:54 - Assessment and Plan (1) Pelvic organ prolapse quantification stage 4 cystocele Current Visit: Yes Status: Acute Pt s/p anterior and posterior repair. (2) Diabetes type 2, controlled Current Visit: No Status: Chronic Pt's blood sugars are under control on SSI, not requiring any coverage 01/23- BS remain under excellent excellent control, not requiring coverage. Qualifiers: Diabetes mellitus complication status: without complication Diabetes mellitus longitudinal float operator insulin use: without fci use Qualified Code(s): E11.9 - Type 2 diabetes mellitus without complications (3) Iatrogenic enterotomy Current Visit: Yes Status: Acute Pt s/p partial small bowel resection with side to side repair by Dr. Abdi. + BS, + flatus. Remains NPO. No s/sx's of infection at this time. 01/23/17-Pt without signs of infection, active BS and flatus. (4) Anxiety Current Visit: Yes Status: Acute Will try IV Valium as she is allergic to Ativan. (5) Post-operative pain Current Visit: Yes Status: Acute Pt with multiple allergies and elevated creatinine which limits our options. Will try Dilaudid MEDICATION AIDE and see if this helps control her pain while NPO. Hopefully once can take PO we will find PO alternative that provides longer pain relief. 01/23/17-Better controlled on MEDICATION AIDE Subjective - Subjective Principal diagnosis: s/p A&P repair, laparotoomy with enterotomy Interval history: Pain better controlled with MEDICATION AIDE. No N/V, + flatus. Ambulating some in herndon and voiding. Objective - Vital Signs Latest vital signs: Vital Signs Temp Pulse Pulse Resp BP Pulse Ox 01/23/17 04:37 97.6 F 83 16 120/73 92 01/23/17 04:14 80 16 01/22/17 23:15 97.9 F 79 16 145/77 97 01/22/17 22:45 16 96 01/22/17 22:00 91 169/89 01/22/17 20:58 74 01/22/17 20:20 98.1 F 83 14 172/103 96 01/22/17 16:04 98.2 F 86 16 151/84 98 01/22/17 13:26 16 97 01/22/17 12:29 98.3 F 85 16 147/81 97 01/22/17 10:53 97.6 F 95 20 169/109 97 Intake and Output 01/22/17 01/22/17 01/23/17 15:59 23:59 07:59 Intake Total 200 / 200 100 / 100 200 / 200 Output Total 1000 / 1000 800 / 800 Balance 200 / 200 -900 / -900 -600 / -600 Intake: IV Fluids 200 / 200 100 / 100 200 / 200 Ofirmev 1,000 mg/100 ml 1,000 100 / 100 100 / 100 mg In 100 ml @ 400 mls/hr IVPB Q6H [facility] Rx#:[id number] Zosyn 3.375 GM In Dextrose 5% ( 100 / 100 100 / 100 100 / 100 Minibag+) 100 ML 100 ML @ 25 mls/hr IVPB Q8H [facility] Rx#: [id number] Output: Urine 1000 / 1000 800 / 800 Other: Weight 82.554 kg Blood Glucose* 111 99 117 Patient Weight 01/23/17 23:59 Weight 82.554 kg - I&O's I&O's: Intake & Output 01/20/17 01/21/17 01/22/17 01/23/17 23:59 23:59 23:59 23:59 Intake Total 1400 / 1400 200 / 200 Output Total 700 / 700 1800 / 1800 800 / 800 Balance -700 / -700 -400 / -400 -600 / -600 Weight 82.3 kg 82.9 kg 82.554 kg - Exam Lungs: bilateral: normal Chest: Normal S1, Normal S2 Extremities: Present: normal Abdomen: Present: soft, other (+BS) Incision OB: Present: intact - Labs Labs: Abnormal lab results RBC 2.62 M/mcL (3.82-4.97) L 01/23/17 06:08 Hgb 7.8 g/dL (11.5-15.4) L 01/23/17 06:08 Hct 24.5 % (35.3-44.9) L 01/23/17 06:08 Eosinophils # 0.8 K/mcL (0.0-0.6) H 01/23/17 06:08 Potassium 3.4 mEq/L (3.5-4.5) L 01/23/17 06:08 Chloride 111 mEq/L (98-109) H 01/23/17 06:08 Est GFR (Non-Af Amer) 55 (> 60) L 01/23/17 06:08 Glucose 109 mg/dL (70-99) H 01/23/17 06:08 POC Glucose 117 (58-89) H 01/23/17 03:10 Calcium 7.9 mg/dL (8.6-10.8) L 01/23/17 06:08 Magnesium 1.4 mg/dL (1.6-2.6) L 01/22/17 07:51 Consult Discharge Plan - Plan Referrals: Mary Puri DO [Primary Care Provider] -
[2017-01-23] MEDS ORDERED: SUMAtriptan succinate 50 MG TABLET PO ONE (08:10)
[2017-01-23] MEDS ORDERED: Furosemide 20 MG TABLET PO PRN (08:11)
[2017-01-23 08:36] LABS: Magnesium 1.2 mg/dL (1.6-2.6)
[2017-01-23] MEDS: Albuterol 2.5 MG/3 ML NEBULIZER IH PRN (09:40)
[2017-01-23] MEDS ORDERED: Ondansetron 4 MG/2 ML VIAL IVP PRN (10:03)
[2017-01-23] MEDS ORDERED: Magnesium Oxide 400 MG TABLET PO ONE (10:11)
--- NOTE | 2017-01-23 10:16 | General Surgery Progress Note ---
<Airam Hilario Carlos - Last Filed: 01/23/17 10:14> Date of Encounter: 01/23/17 Time of Encounter: 09:45 - Assessment and Plan (1) Injury to small intestine Current Visit: Yes Status: Acute POD #2 Lysis of adhesions for over 1 hr, small bowel resection with primary anastomosis with Dr. Abdi Advance to clear liquid diet with diabetic modifications- enlive protein supplement TID with meals IV fluids- decrease to 75ml/hour IV antibiotics- Zosyn Increase activity as tolerated- out of bed to chair TID, ambulate as tolerated IS every 1 hour while awake Supportive care and pain control- scheduled Ofirmev every 6 hours for the next 24 hours, Oxycodone IR 10mg every 4 hours prn for moderate pain, Dilaudid 1mg every 2 hours prn for breathrough pain (Hold toradol due to current Cr > 1.00 PPI therapy daily Repeat am labs Qualifiers: Encounter type: subsequent encounter Qualified Code(s): S36.409D - Unspecified injury of unspecified part of small intestine, subsequent encounter (2) Diabetes type 2, controlled Current Visit: No Status: Chronic Glucose controlled this morning Continue SSI as ordered Qualifiers: Diabetes mellitus complication status: without complication Diabetes mellitus detention insulin use: without ad terminal makeup operator use Qualified Code(s): E11.9 - Type 2 diabetes mellitus without complications (3) Abdominal pain Current Visit: No Status: Resolved Supportive care and pain control- scheduled Ofirmev every 6 hours for the next 24 hours, Oxycodone IR 10mg every 4 hours prn for moderate pain, Dilaudid 1mg every 2 hours prn for breathrough pain (Hold toradol due to current Cr > 1.00 Qualifiers: Abdominal location: generalized Qualified Code(s): R10.84 - Generalized abdominal pain (4) DVT prophylaxis Current Visit: Yes Status: Acute EPCDs to bilateral lower extremities for DVT prophylaxis Increase activity as tolerated (5) Hypokalemia Current Visit: Yes Status: Acute Replace potassium 40meq PO (2 doses today) Repeat am labs (6) Hypomagnesemia Current Visit: Yes Status: Acute Replace Mg Repeat am labs Subjective Patient reports: still having pain, voiding w/o difficulty, flatus, no bowel movement, afebrile, other (Patient complaint of itching related to dilaudid, migraine headache and incisional pain (patient request to d/c SHOP ROUTER)) Objective Vital Signs - Last 8 Hours Temp Pulse Pulse Resp BP Pulse Ox 01/23/17 09:41 18 99 01/23/17 08:00 98.1 F 91 12 119/70 93 01/23/17 04:37 97.6 F 83 16 120/73 92 01/23/17 04:14 80 16 Intake and Output 01/22/17 01/23/17 01/23/17 23:59 07:59 15:59 Intake Total 100 / 100 300 / 300 Output Total 1000 / 1000 800 / 800 100 / 100 Balance -900 / -900 -500 / -500 -100 / -100 Intake: IV Fluids 100 / 100 300 / 300 Ofirmev 1,000 mg/100 ml 1,000 200 / 200 mg In 100 ml @ 400 mls/hr IVPB Q6H [facility] Rx#:[id number] Zosyn 3.375 GM In Dextrose 5% ( 100 / 100 100 / 100 Minibag+) 100 ML 100 ML @ 25 mls/hr IVPB Q8H [facility] Rx#: [id number] Output: Urine 1000 / 1000 800 / 800 100 / 100 Other: Weight 82.554 kg Blood Glucose* 99 117 105 Patient Weight 01/23/17 23:59 Weight 82.554 kg - General physical appearance well developed, well nourished, moderate pain - Eyes normal ocular movement - ENT normal mucosa, atraumatic, normocephalic - Neck Neck exam: trachea midline - Respiratory normal respiratory effort, clear to auscultation, other (diminished bibasilar bases) - Cardiovascular Cardiovascular exam: Present: RRR - Abdomen Abdomen: Present: bowel sounds present, soft, tender (expected post-operative tenderness) - Incision Incision: Present: clean and dry, intact - Integumentary no rash - Neurologic CN 2-12 grossly intact - Psychiatric oriented to time, oriented to person, oriented to place, speech is normal, memory intact - Labs 01/23/17 06:08 01/23/17 06:08 Diabetes panel 01/23/17 Range/Units 06:08 Sodium 139 (136-145) mEq/L Potassium 3.4 L (3.5-4.5) mEq/L Chloride 111 H (98-109) mEq/L Carbon Dioxide 22 (19-29) mEq/L BUN 9 (7-20) mg/dL Creatinine 1.02 (0.57-1.11) mg/dL Glucose 109 H (70-99) mg/dL Calcium 7.9 L (8.6-10.8) mg/dL Calcium panel 01/23/17 Range/Units 06:08 Calcium 7.9 L (8.6-10.8) mg/dL Pituitary panel 01/23/17 Range/Units 06:08 Sodium 139 (136-145) mEq/L Potassium 3.4 L (3.5-4.5) mEq/L Chloride 111 H (98-109) mEq/L Carbon Dioxide 22 (19-29) mEq/L BUN 9 (7-20) mg/dL Creatinine 1.02 (0.57-1.11) mg/dL Glucose 109 H (70-99) mg/dL Calcium 7.9 L (8.6-10.8) mg/dL Adrenal panel 01/23/17 Range/Units 06:08 Sodium 139 (136-145) mEq/L Potassium 3.4 L (3.5-4.5) mEq/L Chloride 111 H (98-109) mEq/L Carbon Dioxide 22 (19-29) mEq/L BUN 9 (7-20) mg/dL Creatinine 1.02 (0.57-1.11) mg/dL Glucose 109 H (70-99) mg/dL Calcium 7.9 L (8.6-10.8) mg/dL - VTE Documentation of Mechanical Device: Intermittent pneumatic compression device Consult Discharge Plan - Plan Referrals: Mary Puri DO [Primary Care Provider] - - Attending Attestation For this encounter, I have reviewed the HANDCREW FOREMAN or PA documentation, treatment plan, and medical decision making; and I have had face to face time with this patient. <Brenda Abdi - Last Filed: 01/24/17 09:12> Date of Encounter: 01/23/17 Time of Encounter: 12:05 - Assessment and Plan (1) Iatrogenic enterotomy Current Visit: Yes Status: Acute pt with bowel sounds pain control improved today start clears po pain meds ok home po meds OOB/ambulate aggressive pulmonary toilet (2) Abdominal pain Current Visit: No Status: Resolved Qualifiers: Abdominal location: generalized Qualified Code(s): R10.84 - Generalized abdominal pain (3) HTN (hypertension) Current Visit: Yes Status: Chronic Qualifiers: Hypertension type: essential hypertension Qualified Code(s): I10 - Essential (primary) hypertension Subjective Patient reports: no new complaints, still having pain, pain is less, voiding w/ o difficulty, flatus, no bowel movement Objective Vital Signs - Last 8 Hours Temp Pulse Resp BP Pulse Ox 01/24/17 08:30 97.8 F 83 16 150/77 97 01/24/17 03:30 98.2 F 75 14 167/74 98 Intake and Output 01/23/17 01/24/17 01/24/17 23:59 07:59 15:59 Intake Total 1450 / 1450 950 / 950 350 / 350 Output Total 2350 / 2350 1800 / 1800 Balance -900 / -900 -850 / -850 350 / 350 Intake: IV Fluids 1150 / 1150 200 / 200 0.9 % Sodium Chloride 1,000 ML 950 / 950 @ 75 mls/hr IVC .[id number] [facility] Rx #:[id number] Ofirmev 1,000 mg/100 ml 1,000 200 / 200 100 / 100 mg In 100 ml @ 400 mls/hr IVPB Q6H [facility] Rx#:[id number] Zosyn 3.375 GM In Dextrose 5% ( 100 / 100 Minibag+) 100 ML 100 ML @ 25 mls/hr IVPB Q8H [facility] Rx#: [id number] Oral 300 / 300 750 / 750 350 / 350 Output: Urine 2350 / 2350 1800 / 1800 Other: # Bowel Movements 1 1 Weight 83.007 kg Blood Glucose* 100 92 144 Patient Weight 01/24/17 23:59 Weight 83.007 kg - General physical appearance well developed, well nourished, no distress, moderate pain - Eyes PERRL, normal ocular movement - ENT normal mucosa, normocephalic - Neck Neck exam: trachea midline - Respiratory normal expansion, clear to auscultation - Cardiovascular Cardiovascular exam: Present: RRR - Abdomen Abdomen: Present: bowel sounds present, soft, tender - Incision Incision: Present: clean and dry, intact - Integumentary no growths - Neurologic CN 2-12 grossly intact - Musculoskeletal normal posture - Psychiatric oriented to time, oriented to person, oriented to place, speech is normal, memory intact - Labs 01/24/17 08:03 01/24/17 07:18 Diabetes panel 01/24/17 Range/Units 07:18 Sodium 140 (136-145) mEq/L Potassium 3.5 (3.5-4.5) mEq/L Chloride 112 H (98-109) mEq/L Carbon Dioxide 19 (19-29) mEq/L BUN 5 L (7-20) mg/dL Creatinine 0.91 (0.57-1.11) mg/dL Glucose 88 (70-99) mg/dL Calcium 7.9 L (8.6-10.8) mg/dL Calcium panel 01/24/17 Range/Units 07:18 Calcium 7.9 L (8.6-10.8) mg/dL Pituitary panel 01/24/17 Range/Units 07:18 Sodium 140 (136-145) mEq/L Potassium 3.5 (3.5-4.5) mEq/L Chloride 112 H (98-109) mEq/L Carbon Dioxide 19 (19-29) mEq/L BUN 5 L (7-20) mg/dL Creatinine 0.91 (0.57-1.11) mg/dL Glucose 88 (70-99) mg/dL Calcium 7.9 L (8.6-10.8) mg/dL Adrenal panel 01/24/17 Range/Units 07:18 Sodium 140 (136-145) mEq/L Potassium 3.5 (3.5-4.5) mEq/L Chloride 112 H (98-109) mEq/L Carbon Dioxide 19 (19-29) mEq/L BUN 5 L (7-20) mg/dL Creatinine 0.91 (0.57-1.11) mg/dL Glucose 88 (70-99) mg/dL Calcium 7.9 L (8.6-10.8) mg/dL
[2017-01-23] MEDS: diazePAM 5 MG TABLET PO PRN ×3 (11:07→23:17)
[2017-01-23] MEDS: *HR* OxyCODONE Immed Rel 5 MG TABLET PO PRN ×3 (11:07→21:27)
[2017-01-23] MEDS ORDERED: FLUARIX QUAD 2017-18 36MOS UP/PF 0.5 ML SYRINGE IM ONE (12:53)
[2017-01-23] MEDS: *HR* HYDROmorphone (PF) 1 MG/ML SYRINGE IVP PRN (16:47)
[2017-01-24] MEDS: *HR* Metoprolol 5 MG/5 ML VIAL IVP PRN ×2 (00:18→17:24)
[2017-01-24] MEDS: Insulin LISPRO 300 UNITS/3 ML VIAL SQ SCH ×4 (00:20→10:11)
[2017-01-24] MEDS: *HR* OxyCODONE Immed Rel 5 MG TABLET PO PRN ×3 (02:02→14:35)
[2017-01-24] MEDS: Piperacillin/Tazobactam 3.375 GM in D5% in Water (Mini-Bag+) 100 ML IVPB SCH ×3 (03:29→20:24)
[2017-01-24] MEDS: *HR* HYDROmorphone (PF) 1 MG/ML SYRINGE IVP PRN ×4 (03:30→20:23)
[2017-01-24] MEDS: Acetaminophen IV 1,000 MG/100 ML INFUS..BTL IVPB SCH ×2 (06:15→10:10)
[2017-01-24] MEDS: diazePAM 5 MG TABLET PO PRN ×2 (06:28→20:25)
--- NOTE | 2017-01-24 07:23 | OB/GYN Progress Note ---
Date of Encounter: 01/24/17 Time of Encounter: 07:21 - Assessment and Plan (1) Pelvic organ prolapse quantification stage 4 cystocele Current Visit: Yes Status: Acute Pt s/p anterior and posterior repair. (2) Diabetes type 2, controlled Current Visit: No Status: Chronic Pt's blood sugars are under control on SSI, not requiring any coverage 01/23- BS remain under excellent excellent control, not requiring coverage. 01/24/17 Good BS control Qualifiers: Diabetes mellitus complication status: without complication Diabetes mellitus half-way insulin use: without roasterman use Qualified Code(s): E11.9 - Type 2 diabetes mellitus without complications (3) Iatrogenic enterotomy Current Visit: Yes Status: Acute Pt s/p partial small bowel resection with side to side repair by Dr. Abdi. + BS, + flatus. Remains NPO. No s/sx's of infection at this time. 01/23/17-Pt without signs of infection, active BS and flatus. 01/24/17 - No s/sx's of infection, + BM. Will start Welchol. (4) Anxiety Current Visit: Yes Status: Acute Will try IV Valium as she is allergic to Ativan. (5) Post-operative pain Current Visit: Yes Status: Acute Pt with multiple allergies and elevated creatinine which limits our options. Will try Dilaudid BIOFUELS MANAGER and see if this helps control her pain while NPO. Hopefully once can take PO we will find PO alternative that provides longer pain relief. 01/23/17-Better controlled on BIOFUELS MANAGER 01/24/17- Taking Oxycodone, had Dilaudid once. Subjective - Subjective Principal diagnosis: s/p laparotomy with enterotomy and repair, A&P repair Interval history: Doing better, clears, + flatus and loose BM x2. Ambulating to BR and in halls. Objective - Vital Signs Latest vital signs: Vital Signs Temp Pulse Resp BP Pulse Ox 01/24/17 03:30 98.2 F 75 14 167/74 98 01/23/17 23:26 98.7 F 76 18 161/78 95 01/23/17 19:30 98.4 F 77 16 150/77 98 01/23/17 16:10 98.3 F 78 16 149/69 97 01/23/17 14:00 18 01/23/17 12:25 97.7 F 78 16 167/87 96 01/23/17 09:41 18 99 01/23/17 08:00 98.1 F 91 16 119/70 93 Intake and Output 01/23/17 01/23/17 01/24/17 15:59 23:59 07:59 Intake Total 200 / 200 1450 / 1450 950 / 950 Output Total 1750 / 1750 2350 / 2350 1800 / 1800 Balance -1550 / -1550 -900 / -900 -850 / -850 Intake: IV Fluids 200 / 200 1150 / 1150 200 / 200 0.9 % Sodium Chloride 1,000 ML 950 / 950 @ 75 mls/hr IVC .[id number] [facility] Rx #:[id number] Ofirmev 1,000 mg/100 ml 1,000 100 / 100 200 / 200 100 / 100 mg In 100 ml @ 400 mls/hr IVPB Q6H [facility] Rx#:[id number] Zosyn 3.375 GM In Dextrose 5% ( 100 / 100 100 / 100 Minibag+) 100 ML 100 ML @ 25 mls/hr IVPB Q8H [facility] Rx#: [id number] Oral 300 / 300 750 / 750 Output: Urine 1750 / 1750 2350 / 2350 1800 / 1800 Other: # Bowel Movements 1 1 Weight 83.007 kg Blood Glucose* 99 100 92 Patient Weight 01/24/17 23:59 Weight 83.007 kg - I&O's I&O's: Intake & Output 01/21/17 01/22/17 01/23/17 01/24/17 23:59 23:59 23:59 23:59 Intake Total 1400 / 1400 0 / 0 950 / 950 Output Total 700 / 700 1800 / 1800 4900 / 4900 1800 / 1800 Balance -700 / -700 -400 / -400 -2850 / -2850 -850 / -850 Weight 82.3 kg 82.9 kg 82.554 kg 83.007 kg - Exam Lungs: bilateral: normal Chest: Normal S1, Normal S2 Extremities: Present: normal Abdomen: Present: soft Incision OB: Present: intact - Labs Labs: Abnormal lab results RBC 2.62 M/mcL (3.82-4.97) L 01/23/17 06:08 Hgb 7.8 g/dL (11.5-15.4) L 01/23/17 06:08 Hct 24.5 % (35.3-44.9) L 01/23/17 06:08 Eosinophils # 0.8 K/mcL (0.0-0.6) H 01/23/17 06:08 Potassium 3.4 mEq/L (3.5-4.5) L 01/23/17 06:08 Chloride 111 mEq/L (98-109) H 01/23/17 06:08 Est GFR (Non-Af Amer) 55 (> 60) L 01/23/17 06:08 Glucose 109 mg/dL (70-99) H 01/23/17 06:08 POC Glucose 92 (58-89) H 01/24/17 03:27 Calcium 7.9 mg/dL (8.6-10.8) L 01/23/17 06:08 Magnesium 1.2 mg/dL (1.6-2.6) L 01/23/17 06:08 Consult Discharge Plan - Plan Referrals: Mary Puri DO [Primary Care Provider] -
[2017-01-24 07:55] LABS: BUN/Creatinine Ratio 5 (6-26); Calcium 7.9 mg/dL (8.6-10.8); Carbon Dioxide 19 mEq/L (19-29); Chloride 112 mEq/L (98-109); Glucose 88 mg/dL (70-99); Magnesium 1.2 mg/dL (1.6-2.6); Osmolality,Calculated 287 (280-300); Potassium 3.5 mEq/L (3.5-4.5); Sodium 140 mEq/L (136-145); eGFR For African Americans > 60 (> 60); eGFR For Non-African Americans > 60 (> 60)
[2017-01-24 07:59] LABS: Blood Urea Nitrogen 5 mg/dL (7-20)
[2017-01-24 08:44] LABS: Basophils % 0.3 %; Eosinophils # 0.9 K/mcL (0.0-0.6); Eosinophils % 10.5 %; Hematocrit 24.8 % (35.3-44.9); Hemoglobin 7.9 g/dL (11.5-15.4); Immature Granulocytes % 0.1 % (0-4); Immature Platelets 1.7 % (1.1-6.1); Lymphocytes # 1.5 K/mcL (0.6-4.6); Lymphocytes % 17.2 %; Mean Corpuscular HGB Conc 31.9 g/dL (31.6-35.5); Mean Corpuscular Hemoglobin 29.6 pg (28.0-33.3); Mean Platelet Volume 9.7 fL (9.4-12.4); Monocytes # 0.5 K/mcL (0.0-1.3); Platelet Count 246 K/mcL (140-400); Red Blood Count 2.67 M/mcL (3.82-4.97); Red Cell Distribution Width 13.4 % (11.5-14.5); Segmented Neutrophils % 66.9 %
[2017-01-24 08:45] LABS: Mean Corpuscular Volume 92.9 fL (83.0-100.0)
--- NOTE | 2017-01-24 13:17 | General Surgery Progress Note ---
<Airam Hilario Carlos - Last Filed: 01/24/17 13:14> Date of Encounter: 01/24/17 Time of Encounter: 13:00 - Assessment and Plan (1) Injury to small intestine Current Visit: Yes Status: Acute POD #3 Lysis of adhesions for over 1 hr, small bowel resection with primary anastomosis with Dr. Abdi Advance to full liquid diet with diabetic modifications- ensure protein supplement TID with meals IV fluids- decrease to 75ml/hour IV antibiotics- Zosyn Increase activity as tolerated- out of bed to chair TID, ambulate as tolerated IS every 1 hour while awake Supportive care and pain control- Oxycodone IR 10mg every 4 hours prn for moderate pain, Dilaudid 1mg every 2 hours prn for breathrough pain (Hold toradol due to current Cr > 1.00 PPI therapy daily Repeat am labs Qualifiers: Encounter type: subsequent encounter Qualified Code(s): S36.409D - Unspecified injury of unspecified part of small intestine, subsequent encounter (2) Diabetes type 2, controlled Current Visit: No Status: Chronic Hypoglycemia noted today after insulin coverage given Glucose improved after treatment Metformin home dose resumed Insulin sliding scale discontinued per ANIMAL SURGEON service Qualifiers: Diabetes mellitus complication status: without complication Diabetes mellitus [facility] insulin use: without [facility] use Qualified Code(s): E11.9 - Type 2 diabetes mellitus without complications (3) DVT prophylaxis Current Visit: Yes Status: Acute EPCDs to bilateral lower extremities for DVT prophylaxis Increase activity as tolerated- ambulate hallways TID with assistance (4) Hypokalemia Current Visit: Yes Status: Resolved K- 3.5 Repeat am labs (5) Hypomagnesemia Current Visit: Yes Status: Acute Replace Mg Repeat am labs Subjective Patient reports: no new complaints, feels better, still having pain, pain is less, tolerating liquids well, voiding w/o difficulty, flatus, bowel movement ( X3), afebrile, other (episode of hypoglycemia today with glucose down to 44) Objective Vital Signs - Last 8 Hours Temp Pulse Resp BP Pulse Ox 01/24/17 08:30 97.8 F 83 16 150/77 97 Intake and Output 01/23/17 01/24/17 01/24/17 23:59 07:59 15:59 Intake Total 1450 / 1450 1050 / 1050 450 / 450 Output Total 2350 / 2350 2049 Balance -900 / -900 -1000 / -1000 450 / 450 Intake: IV Fluids 1150 / 1150 300 / 300 100 / 100 0.9 % Sodium Chloride 1,000 ML 950 / 950 @ 75 mls/hr IVC .[id number] [facility] Rx #:[id number] Ofirmev 1,000 mg/100 ml 1,000 200 / 200 100 / 100 100 / 100 mg In 100 ml @ 400 mls/hr IVPB Q6H [facility] Rx#:[id number] Zosyn 3.375 GM In Dextrose 5% ( 200 / 200 Minibag+) 100 ML 100 ML @ 25 mls/hr IVPB Q8H [facility] Rx#: [id number] Oral 300 / 300 750 / 750 350 / 350 Output: Urine 2350 / 2350 2049 Other: Stool Size Small # Bowel Movements 1 1 Weight 83.007 kg Blood Glucose* 100 92 103 Patient Weight 01/24/17 23:59 Weight 83.007 kg - General physical appearance well developed, well nourished, no distress - Eyes normal ocular movement - ENT normal mucosa, atraumatic, normocephalic - Neck Neck exam: trachea midline - Respiratory normal respiratory effort, clear to auscultation, other (diminished bibasilar bases) - Cardiovascular Cardiovascular exam: Present: RRR - Abdomen Abdomen: Present: bowel sounds present, soft, tender (minimal, expected post- operative tenderness) - Incision Incision: Present: clean and dry, intact - Neurologic CN 2-12 grossly intact - Psychiatric oriented to time, oriented to person, oriented to place, speech is normal, memory intact - Labs 01/24/17 08:03 01/24/17 07:18 Diabetes panel 01/24/17 Range/Units 07:18 Sodium 140 (136-145) mEq/L Potassium 3.5 (3.5-4.5) mEq/L Chloride 112 H (98-109) mEq/L Carbon Dioxide 19 (19-29) mEq/L BUN 5 L (7-20) mg/dL Creatinine 0.91 (0.57-1.11) mg/dL Glucose 88 (70-99) mg/dL Calcium 7.9 L (8.6-10.8) mg/dL Calcium panel 01/24/17 Range/Units 07:18 Calcium 7.9 L (8.6-10.8) mg/dL Pituitary panel 01/24/17 Range/Units 07:18 Sodium 140 (136-145) mEq/L Potassium 3.5 (3.5-4.5) mEq/L Chloride 112 H (98-109) mEq/L Carbon Dioxide 19 (19-29) mEq/L BUN 5 L (7-20) mg/dL Creatinine 0.91 (0.57-1.11) mg/dL Glucose 88 (70-99) mg/dL Calcium 7.9 L (8.6-10.8) mg/dL Adrenal panel 01/24/17 Range/Units 07:18 Sodium 140 (136-145) mEq/L Potassium 3.5 (3.5-4.5) mEq/L Chloride 112 H (98-109) mEq/L Carbon Dioxide 19 (19-29) mEq/L BUN 5 L (7-20) mg/dL Creatinine 0.91 (0.57-1.11) mg/dL Glucose 88 (70-99) mg/dL Calcium 7.9 L (8.6-10.8) mg/dL - VTE Documentation of Mechanical Device: Intermittent pneumatic compression device Consult Discharge Plan - Plan Referrals: Mary Puri DO [Primary Care Provider] - - Attending Attestation For this encounter, I have reviewed the STATE AUDITOR or PA documentation, treatment plan, and medical decision making; and I have had face to face time with this patient. <Brenda Abdi - Last Filed: 01/25/17 14:52> Date of Encounter: 01/24/17 Time of Encounter: 16:20 - Assessment and Plan (1) Iatrogenic enterotomy Current Visit: Yes Status: Acute patient tolerating fulls pain controlled with po and iv meds, decrease iv meds and try to transition to all po OOB to chair afeb, VSS, tolerating diet (2) Abdominal pain Current Visit: No Status: Resolved Qualifiers: Abdominal location: generalized Qualified Code(s): R10.84 - Generalized abdominal pain (3) HTN (hypertension) Current Visit: Yes Status: Chronic Qualifiers: Hypertension type: essential hypertension Qualified Code(s): I10 - Essential (primary) hypertension Subjective Patient reports: no new complaints, feels better, still having pain, pain is less, tolerating liquids well, flatus, bowel movement Objective Vital Signs - Last 8 Hours Temp Pulse Resp BP Pulse Ox 01/25/17 13:39 100 01/25/17 11:42 98.2 F 87 16 140/79 01/25/17 07:40 98.2 F 68 16 158/83 Intake and Output 01/24/17 01/25/17 01/25/17 23:59 07:59 15:59 Intake Total 800 / 800 740 / 740 Output Total 1300 / 1300 1700 / 1700 2100 / 2100 Balance -1300 / -1300 -900 / -900 -1360 / -1360 Intake: IV Fluids 200 / 200 Zosyn 3.375 GM In Dextrose 5% ( 200 / 200 Minibag+) 100 ML 100 ML @ 25 mls/hr IVPB Q8H [facility] Rx#: [id number] Oral 600 / 600 740 / 740 Output: Urine 1300 / 1300 1700 / 1700 2100 / 2100 Other: Meal Lunch Percent of Meal Consumed 100% Stool Size Moderate Stool Consistency liquid Stool Characteristics Normal for Patient Normal for Patient # Bowel Movements 1 1 1 Weight 82.599 kg Blood Glucose* 127 115 144 Patient Weight 01/25/17 23:59 Weight 82.599 kg - General physical appearance well nourished, no distress - Eyes normal ocular movement - ENT normal mucosa, normocephalic - Neck Neck exam: trachea midline - Respiratory normal expansion, normal respiratory effort - Cardiovascular Cardiovascular exam: Present: RRR - Abdomen Abdomen: Present: bowel sounds present, soft, tender - Incision Incision: Present: clean and dry, intact - Integumentary no rash, no growths - Neurologic CN 2-12 grossly intact - Musculoskeletal normal posture - Psychiatric oriented to time, oriented to person, oriented to place, speech is normal, memory intact - Labs 01/25/17 06:09 01/25/17 06:09 Diabetes panel 01/25/17 Range/Units 06:09 Sodium 140 (136-145) mEq/L Potassium 3.0 L (3.5-4.5) mEq/L Chloride 107 (98-109) mEq/L Carbon Dioxide 25 (19-29) mEq/L BUN 4 L (7-20) mg/dL Creatinine 0.85 (0.57-1.11) mg/dL Glucose 112 H (70-99) mg/dL Calcium 8.1 L (8.6-10.8) mg/dL Calcium panel 01/25/17 Range/Units 06:09 Calcium 8.1 L (8.6-10.8) mg/dL Pituitary panel 01/25/17 Range/Units 06:09 Sodium 140 (136-145) mEq/L Potassium 3.0 L (3.5-4.5) mEq/L Chloride 107 (98-109) mEq/L Carbon Dioxide 25 (19-29) mEq/L BUN 4 L (7-20) mg/dL Creatinine 0.85 (0.57-1.11) mg/dL Glucose 112 H (70-99) mg/dL Calcium 8.1 L (8.6-10.8) mg/dL Adrenal panel 01/25/17 Range/Units 06:09 Sodium 140 (136-145) mEq/L Potassium 3.0 L (3.5-4.5) mEq/L Chloride 107 (98-109) mEq/L Carbon Dioxide 25 (19-29) mEq/L BUN 4 L (7-20) mg/dL Creatinine 0.85 (0.57-1.11) mg/dL Glucose 112 H (70-99) mg/dL Calcium 8.1 L (8.6-10.8) mg/dL
[2017-01-24] MEDS ORDERED: 0.9 % Sodium Chloride 1,000 ML IVC SCH (13:24)
[2017-01-24] MEDS: *HR* Metformin 500 MG TABLET PO SCH (16:26)
[2017-01-24] MEDS: Albuterol 2.5 MG/3 ML NEBULIZER IH PRN (20:43)
[2017-01-24] MEDS: *HR* OxyCODONE/APAP 7.5/325 TABLET PO PRN (22:45)
[2017-01-24] MEDS: Magnesium Oxide 400 MG TABLET PO SCH (22:46)
[2017-01-24] MEDS: Melatonin 3 MG TABLET PO SCH (22:46)
[2017-01-25] MEDS: Piperacillin/Tazobactam 3.375 GM in D5% in Water (Mini-Bag+) 100 ML IVPB SCH ×3 (03:18→19:07)
[2017-01-25] MEDS: *HR* OxyCODONE/APAP 7.5/325 TABLET PO PRN ×5 (03:19→21:03)
[2017-01-25] MEDS: Ondansetron 4 MG/2 ML VIAL IVP PRN ×2 (03:37→12:03)
[2017-01-25] MEDS: *HR* Metoprolol 5 MG/5 ML VIAL IVP PRN ×2 (04:20→22:14)
[2017-01-25] MEDS: diazePAM 5 MG TABLET PO PRN ×3 (05:53→21:03)
[2017-01-25 06:24] LABS: Basophils % 0.3 %; Eosinophils # 0.8 K/mcL (0.0-0.6); Eosinophils % 11.4 %; Hematocrit 24.3 % (35.3-44.9); Hemoglobin 7.9 g/dL (11.5-15.4); Immature Granulocytes % 0.3 % (0-4); Lymphocytes # 1.2 K/mcL (0.6-4.6); Lymphocytes % 16.9 %; Mean Corpuscular HGB Conc 32.5 g/dL (31.6-35.5); Mean Corpuscular Hemoglobin 30.3 pg (28.0-33.3); Mean Corpuscular Volume 93.1 fL (83.0-100.0); Mean Platelet Volume 9.6 fL (9.4-12.4); Monocytes # 0.5 K/mcL (0.0-1.3); Monocytes % 6.3 %; Neutrophils # 4.8 K/mcL (1.6-8.9); Platelet Count 246 K/mcL (140-400); Red Blood Count 2.61 M/mcL (3.82-4.97); Red Cell Distribution Width 13.4 % (11.5-14.5); Segmented Neutrophils % 64.8 %
[2017-01-25 06:37] LABS: BUN/Creatinine Ratio 5 (6-26); Calcium 8.1 mg/dL (8.6-10.8); Carbon Dioxide 25 mEq/L (19-29); Chloride 107 mEq/L (98-109); Glucose 112 mg/dL (70-99); Magnesium 1.2 mg/dL (1.6-2.6); Osmolality,Calculated 288 (280-300); Sodium 140 mEq/L (136-145); eGFR For African Americans > 60 (> 60); eGFR For Non-African Americans > 60 (> 60)
[2017-01-25 06:38] LABS: Blood Urea Nitrogen 4 mg/dL (7-20)
[2017-01-25] MEDS: *HR* Metformin 500 MG TABLET PO SCH ×2 (09:03→17:06)
[2017-01-25] MEDS: Magnesium Oxide 400 MG TABLET PO SCH ×2 (09:14→20:17)
--- NOTE | 2017-01-25 09:32 | OB/GYN Progress Note ---
Date of Encounter: 01/25/17 Time of Encounter: 09:30 - Assessment and Plan (1) Pelvic organ prolapse quantification stage 4 cystocele Current Visit: Yes Status: Acute Pt s/p anterior and posterior repair. 01/25/17- Overall pt doing well, will advance to regular diet. Will have PT see pt to see if ECF is needed. Will cont. post op care. (2) Diabetes type 2, controlled Current Visit: No Status: Chronic Pt's blood sugars are under control on SSI, not requiring any coverage 01/23- BS remain under excellent excellent control, not requiring coverage. 01/24/17 Good BS control 01/25/17 BS good, bottomed out yesterday so insulin discontinued. Qualifiers: Diabetes mellitus complication status: without complication Diabetes mellitus [facility]iary insulin use: without [facility]itentiary use Qualified Code(s): E11.9 - Type 2 diabetes mellitus without complications (3) Iatrogenic enterotomy Current Visit: Yes Status: Acute Pt s/p partial small bowel resection with side to side repair by Dr. Abdi. + BS, + flatus. Remains NPO. No s/sx's of infection at this time. 01/23/17-Pt without signs of infection, active BS and flatus. 01/24/17 - No s/sx's of infection, + BM. Will start Welchol. (4) Anxiety Current Visit: Yes Status: Acute Will try IV Valium as she is allergic to Ativan. (5) Post-operative pain Current Visit: Yes Status: Acute Pt with multiple allergies and elevated creatinine which limits our options. Will try Dilaudid ESCORT BLIND and see if this helps control her pain while NPO. Hopefully once can take PO we will find PO alternative that provides longer pain relief. 01/23/17-Better controlled on ESCORT BLIND 01/24/17- Taking Oxycodone, had Dilaudid once. Subjective - Subjective Principal diagnosis: s/p exploratory lap with bowel repair and A&P repair Interval history: Doing ok. Clears without n/v, + flatus and BM. Ambulationg to BR. Pt states she is quite weak and needs help getting out of bed. C/o significant pain. Objective - Vital Signs Latest vital signs: Vital Signs Temp Pulse Resp BP Pulse Ox 01/25/17 07:40 98.2 F 68 16 158/83 01/25/17 05:10 77 171/94 01/25/17 04:00 98.3 F 72 16 180/84 98 01/24/17 23:51 98.1 F 93 16 155/89 94 01/24/17 23:18 166/79 01/24/17 20:44 24 99 01/24/17 19:50 99.2 F 85 18 187/88 97 01/24/17 18:15 85 151/80 98 01/24/17 16:00 98.0 F 74 14 176/84 98 01/24/17 14:45 97.3 F L 58 14 173/85 99 01/24/17 14:30 97.4 F L 63 12 171/88 98 Intake and Output 01/24/17 01/25/17 01/25/17 23:59 07:59 15:59 Intake Total 700 / 700 Output Total 1300 / 1300 1700 / 1700 700 / 700 Balance -1300 / -1300 -1000 / -1000 -700 / -700 Intake: IV Fluids 100 / 100 Zosyn 3.375 GM In Dextrose 5% ( 100 / 100 Minibag+) 100 ML 100 ML @ 25 mls/hr IVPB Q8H [facility] Rx#: [id number] Oral 600 / 600 Output: Urine 1300 / 1300 1700 / 1700 700 / 700 Other: Stool Size Small Stool Consistency liquid Stool Characteristics Normal for Patient # Bowel Movements 1 1 Weight 82.599 kg Blood Glucose* 127 115 Patient Weight 01/25/17 23:59 Weight 82.599 kg - I&O's I&O's: Intake & Output 01/22/17 01/23/17 01/24/17 01/25/17 23:59 23:59 23:59 23:59 Intake Total 1400 / 1400 0 / 0 1600 / 1600 700 / 700 Output Total 1800 / 1800 4900 / 4900 3650 / 3650 2400 / 2400 Balance -400 / -400 -2850 / -2850 -2050 / -2050 -1700 / -1700 Weight 82.9 kg 82.554 kg 83.007 kg 82.599 kg - Exam Lungs: bilateral: normal Chest: Normal S1 Extremities: Present: normal Abdomen: Present: soft, other (Positive BS) - Labs Labs: Abnormal lab results RBC 2.61 M/mcL (3.82-4.97) L 01/25/17 06:09 Hgb 7.9 g/dL (11.5-15.4) L 01/25/17 06:09 Hct 24.3 % (35.3-44.9) L 01/25/17 06:09 Eosinophils # 0.8 K/mcL (0.0-0.6) H 01/25/17 06:09 Potassium 3.0 mEq/L (3.5-4.5) L 01/25/17 06:09 BUN 4 mg/dL (7-20) L 01/25/17 06:09 BUN/Creatinine Ratio 5 (6-26) L 01/25/17 06:09 Glucose 112 mg/dL (70-99) H 01/25/17 06:09 POC Glucose 115 (58-89) H 01/25/17 07:39 Calcium 8.1 mg/dL (8.6-10.8) L 01/25/17 06:09 Magnesium 1.2 mg/dL (1.6-2.6) L 01/25/17 06:09 Consult Discharge Plan - Plan Referrals: Mary Puri DO [Primary Care Provider] -
--- NOTE | 2017-01-25 09:39 | General Surgery Progress Note ---
Date of Encounter: 01/25/17 Time of Encounter: 09:30 - Assessment and Plan (1) Injury to small intestine Current Visit: Yes Status: Acute POD #4 Lysis of adhesions for over 1 hr, small bowel resection with primary anastomosis with Dr. Abdi Advance to diabetic diet with enlive protein supplements (lactose intolerant) Saline lock IV antibiotics- Zosyn (may transition to Augmentin 875 mg twice a day X 7 days at discharge) Increase activity as tolerated- out of bed to chair TID, ambulate as tolerated IS every 1 hour while awake Supportive care and pain control- Percocet 7.5mg/325mg every 4 hours prn, Dilaudid 1mg every 2 hours prn for breathrough pain PPI therapy daily General surgery will sign off at this time. Please call with any further questions or concerns. Qualifiers: Encounter type: subsequent encounter Qualified Code(s): S36.409D - Unspecified injury of unspecified part of small intestine, subsequent encounter (2) Diabetes type 2, controlled Current Visit: No Status: Chronic Stable Metformin home dose resumed Insulin sliding scale discontinued per TOBACCO WAREHOUSE AGENT service due to hypoglycemic episode Qualifiers: Diabetes mellitus complication status: without complication Diabetes mellitus ferry terminal agent insulin use: without retirement use Qualified Code(s): E11.9 - Type 2 diabetes mellitus without complications (3) DVT prophylaxis Current Visit: Yes Status: Acute EPCDs to bilateral lower extremities for DVT prophylaxis Increase activity as tolerated- ambulate hallways TID with assistance (4) Hypokalemia Current Visit: Yes Status: Resolved K- 3.0 Replace potassium Repeat am labs (5) Hypomagnesemia Current Visit: Yes Status: Acute Replace Mg Repeat am labs Subjective Patient reports: no new complaints, still having pain (incisional), tolerating liquids well (full liquids), voiding w/o difficulty, flatus, bowel movement, diarrhea, nausea (occasional), afebrile Objective Vital Signs - Last 8 Hours Temp Pulse Resp BP Pulse Ox 01/25/17 07:40 98.2 F 68 16 158/83 01/25/17 05:10 77 171/94 01/25/17 04:00 98.3 F 72 16 180/84 98 Intake and Output 01/24/17 01/25/17 01/25/17 23:59 07:59 15:59 Intake Total 700 / 700 Output Total 1300 / 1300 1700 / 1700 700 / 700 Balance -1300 / -1300 -1000 / -1000 -700 / -700 Intake: IV Fluids 100 / 100 Zosyn 3.375 GM In Dextrose 5% ( 100 / 100 Minibag+) 100 ML 100 ML @ 25 mls/hr IVPB Q8H [facility] Rx#: [id number] Oral 600 / 600 Output: Urine 1300 / 1300 1700 / 1700 700 / 700 Other: Stool Size Small Stool Consistency liquid Stool Characteristics Normal for Patient # Bowel Movements 1 1 Weight 82.599 kg Blood Glucose* 127 115 Patient Weight 01/25/17 23:59 Weight 82.599 kg - General physical appearance well developed, well nourished, no distress - Eyes normal ocular movement - ENT normal mucosa, atraumatic, normocephalic - Neck Neck exam: trachea midline - Respiratory normal respiratory effort, clear to auscultation - Cardiovascular Cardiovascular exam: Present: RRR - Abdomen Abdomen: Present: bowel sounds present, soft, tender (expected post-operative tenderness) - Incision Incision: Present: clean and dry, intact - Neurologic CN 2-12 grossly intact - Psychiatric oriented to time, oriented to person, oriented to place, speech is normal, memory intact - Labs 01/25/17 06:09 01/25/17 06:09 Diabetes panel 01/25/17 Range/Units 06:09 Sodium 140 (136-145) mEq/L Potassium 3.0 L (3.5-4.5) mEq/L Chloride 107 (98-109) mEq/L Carbon Dioxide 25 (19-29) mEq/L BUN 4 L (7-20) mg/dL Creatinine 0.85 (0.57-1.11) mg/dL Glucose 112 H (70-99) mg/dL Calcium 8.1 L (8.6-10.8) mg/dL Calcium panel 01/25/17 Range/Units 06:09 Calcium 8.1 L (8.6-10.8) mg/dL Pituitary panel 01/25/17 Range/Units 06:09 Sodium 140 (136-145) mEq/L Potassium 3.0 L (3.5-4.5) mEq/L Chloride 107 (98-109) mEq/L Carbon Dioxide 25 (19-29) mEq/L BUN 4 L (7-20) mg/dL Creatinine 0.85 (0.57-1.11) mg/dL Glucose 112 H (70-99) mg/dL Calcium 8.1 L (8.6-10.8) mg/dL Adrenal panel 01/25/17 Range/Units 06:09 Sodium 140 (136-145) mEq/L Potassium 3.0 L (3.5-4.5) mEq/L Chloride 107 (98-109) mEq/L Carbon Dioxide 25 (19-29) mEq/L BUN 4 L (7-20) mg/dL Creatinine 0.85 (0.57-1.11) mg/dL Glucose 112 H (70-99) mg/dL Calcium 8.1 L (8.6-10.8) mg/dL - VTE Documentation of Mechanical Device: Intermittent pneumatic compression device Consult Discharge Plan - Plan Referrals: Mary Puri DO [Primary Care Provider] - - Attending Attestation For this encounter, I have reviewed the DRYING MACHINE RECEIVER or PA documentation, treatment plan, and medical decision making; and I have had face to face time with this patient.
[2017-01-25] MEDS: Albuterol 2.5 MG/3 ML NEBULIZER IH PRN (21:14)
[2017-01-25] MEDS: Melatonin 3 MG TABLET PO SCH (21:29)
[2017-01-25] MEDS ORDERED: Ringers Solution, Lactated 1,000 ML ONE (21:58)
[2017-01-26] MEDS: *HR* OxyCODONE/APAP 7.5/325 TABLET PO PRN ×3 (01:11→09:16)
[2017-01-26] MEDS: Piperacillin/Tazobactam 3.375 GM in D5% in Water (Mini-Bag+) 100 ML IVPB SCH (03:22)
[2017-01-26] MEDS: *HR* Metformin 500 MG TABLET PO SCH (07:27)
[2017-01-26] MEDS: Magnesium Oxide 400 MG TABLET PO SCH (08:00)
[2017-01-26 08:01] LABS: BUN/Creatinine Ratio 4 (6-26); Calcium 8.8 mg/dL (8.6-10.8); Carbon Dioxide 27 mEq/L (19-29); Chloride 108 mEq/L (98-109); Glucose 105 mg/dL (70-99); Magnesium 1.3 mg/dL (1.6-2.6); Osmolality,Calculated 291 (280-300); Sodium 142 mEq/L (136-145); eGFR For African Americans > 60 (> 60); eGFR For Non-African Americans 57 (> 60)
[2017-01-26 08:03] LABS: Blood Urea Nitrogen 4 mg/dL (7-20); Potassium 4.2 mEq/L (3.5-4.5)
[2017-01-26 08:04] VITALS: BP 158/91
--- NOTE | 2017-01-26 08:44 | Discharge Summary ---
Date of Encounter: 01/26/17 Time of Encounter: 08:43 - Discharge Diagnosis (1) Pelvic organ prolapse quantification stage 4 cystocele Priority: Primary Status: Acute Comments: S/p attempted sacrocolpopexy complicated by very dense adhesions and enterotomy requiring repair. Now s/p A&P repair. (2) Diabetes type 2, controlled Priority: Secondary Status: Chronic Comments: Good BS control Qualifiers: Diabetes mellitus complication status: without complication Diabetes mellitus urology teacher insulin use: without urology teacher use Qualified Code(s): E11.9 - Type 2 diabetes mellitus without complications (3) Iatrogenic enterotomy Priority: Secondary Status: Acute Comments: Healing well without evidence of infection. Regular diet without n/v. (4) Anxiety Priority: Secondary Status: Acute Comments: stable (5) Post-operative pain Priority: Secondary Status: Acute Comments: well controlled with Oxycontin. - Discharge Medications Prescriptions: Amoxicillin/Clavulanate [Augmentin] 875 mg PO BIDWM #14 tablet Oxycodone HCl 5 mg PO Q4H PRN #40 tablet PRN Reason: post op pain Home Medications: Pravastatin Sodium [Pravachol] 20 mg PO DAILY 11/28/14 [History] Albuterol Sulfate [Albuterol Inhaler] 2 puff IH Q4HR PRN 01/11/15 [History] Gabapentin [Neurontin] 600 mg PO HS 01/11/15 [History] Meclizine [Antivert] 25 mg PO BID 01/11/15 [History] Melatonin [Melatin] 5 mg PO HS 01/11/15 [History] Montelukast [Singulair] 10 mg PO DAILY 01/11/15 [History] Vitamin B Complex [B Complex] 1 each PO DAILY 01/11/15 [History] Albuterol Neb [Proventil Neb] 2.5 mg IH QID PRN #120 inhsol 06/05/15 [Rx] Acetaminophen [Tylenol] 500 mg PO Q6HR PRN 01/21/17 [History] Colesevelam [Welchol] 1,875 mg PO TID 01/21/17 [History] DiphenhydraMINE [Benadryl] 25 mg PO Q8HR PRN 01/21/17 [History] Doxylamine Succinate [Unisom] 25 mg PO HS PRN 01/21/17 [History] Duloxetine HCl [Cymbalta] 60 mg PO DAILY 01/21/17 [History] Furosemide [Lasix] 20 mg PO DAILY 01/21/17 [History] Labetalol [Trandate] 100 mg PO BID 01/21/17 [History] Lactase [Lactaid] 9,000 unit PO DAILY 01/21/17 [History] Levothyroxine [Synthroid] 88 mcg PO 0630 01/21/17 [History] Loperamide [Imodium] 2 mg PO QID PRN 01/21/17 [History] Loratadine [Allergy Relief] 10 mg PO DAILY 01/21/17 [History] Magnesium Carbonate/Al Hydrox [Gaviscon Es Tablet Chew] 1 tab PO QID 01/21/17 [ History] Metformin HCl [Glucophage] 1,000 mg PO BID 01/21/17 [History] Omeprazole [PriLOSEC] 40 mg PO DAILY 01/21/17 [History] Promethazine [Phenergan] 12.5 - 25 mg PO BID PRN 01/21/17 [History] SUMAtriptan succinate [Imitrex] 50 mg PO Q2H PRN 01/21/17 [History] Amoxicillin/Clavulanate [Augmentin] 875 mg PO BIDWM #14 tablet 01/26/17 [Rx] Oxycodone HCl 5 mg PO Q4H PRN #40 tablet 01/26/17 [Rx] Allergies/Adverse Reactions: 3 Allergy/AdvReac Type Severity Reaction Status Date / Time aspirin Allergy Anaphylaxis Verified 01/21/17 07:05 Buspirone [From BuSpar] Allergy Rash Verified 01/21/17 07:05 caffeine Allergy Anaphylaxis Verified 01/21/17 07:05 chlorpromazine Allergy Itching Verified 01/21/17 07:05 [From Thorazine] codeine Allergy Itching Verified 01/21/17 07:05 lorazepam [From Ativan] Allergy Hives Verified 01/21/17 07:05 morphine Allergy Hives Verified 01/21/17 07:05 prochlorperazine Allergy Hives Verified 01/21/17 07:05 [From Compazine] propoxyphene [From Darvon] Allergy Abdominal Verified 01/21/17 07:05 Pain tramadol Allergy Nausea Verified 01/21/17 07:05 Data Procedures and tests throughout hospitalization: Laboratory Tests 01/21/17 01/21/17 01/21/17 06:28 18:22 21:07 WBC RBC Hgb Hct MCV MCH MCHC RDW Plt Count MPV Immature Gran % Seg Neutrophils % Lymphocytes % Monocytes % Eosinophils % Basophils % Neutrophils # Lymphocytes # Monocytes # Eosinophils # Basophils # Immature Plt Fraction Sodium Potassium Chloride Carbon Dioxide BUN Creatinine Est GFR ( Amer) Est GFR (Non-Af Amer) BUN/Creatinine Ratio Glucose POC Glucose 124 H 125 H 108 H Calculated Osmolality Calcium Phosphorus Magnesium Specimen Rejected 01/21/17 01/22/17 01/22/17 23:56 04:49 05:12 WBC 11.4 H RBC 3.04 L Hgb 9.1 L Hct 28.9 L MCV 95.1 MCH 29.9 MCHC 31.5 L RDW 13.6 Plt Count 245 MPV 9.3 L Immature Gran % 0.4 Seg Neutrophils % 76.5 Lymphocytes % 15.4 Monocytes % 7.0 Eosinophils % 0.3 Basophils % 0.4 Neutrophils # 8.7 Lymphocytes # 1.8 Monocytes # 0.8 Eosinophils # 0.0 Basophils # 0.1 Immature Plt Fraction Sodium Potassium Chloride Carbon Dioxide BUN Creatinine Est GFR ( Amer) Est GFR (Non-Af Amer) BUN/Creatinine Ratio Glucose POC Glucose 101 H 106 H Calculated Osmolality Calcium Phosphorus Magnesium Specimen Rejected 01/22/17 01/22/17 01/22/17 07:51 09:45 11:48 WBC RBC Hgb Hct MCV MCH MCHC RDW Plt Count MPV Immature Gran % Seg Neutrophils % Lymphocytes % Monocytes % Eosinophils % Basophils % Neutrophils # Lymphocytes # Monocytes # Eosinophils # Basophils # Immature Plt Fraction Sodium 141 Potassium 3.6 Chloride 111 H Carbon Dioxide 22 BUN 14 Creatinine 1.28 H Est GFR ( Amer) 51 L Est GFR (Non-Af Amer) 42 L BUN/Creatinine Ratio 11 Glucose 122 H POC Glucose 149 H 111 H Calculated Osmolality 294 Calcium 8.4 L Phosphorus 2.7 Magnesium 1.4 L Specimen Rejected 01/22/17 01/22/17 01/23/17 15:54 20:23 00:26 WBC RBC Hgb Hct MCV MCH MCHC RDW Plt Count MPV Immature Gran % Seg Neutrophils % Lymphocytes % Monocytes % Eosinophils % Basophils % Neutrophils # Lymphocytes # Monocytes # Eosinophils # Basophils # Immature Plt Fraction Sodium Potassium Chloride Carbon Dioxide BUN Creatinine Est GFR ( Amer) Est GFR (Non-Af Amer) BUN/Creatinine Ratio Glucose POC Glucose 107 H 99 H 113 H Calculated Osmolality Calcium Phosphorus Magnesium Specimen Rejected 01/23/17 01/23/17 01/23/17 03:10 06:08 06:08 WBC 9.6 RBC 2.62 L Hgb 7.8 L Hct 24.5 L MCV 93.5 MCH 29.8 MCHC 31.8 RDW 13.9 Plt Count 180 MPV 9.5 Immature Gran % 0.4 Seg Neutrophils % 72.1 Lymphocytes % 13.2 Monocytes % 5.7 Eosinophils % 8.3 Basophils % 0.3 Neutrophils # 6.9 Lymphocytes # 1.3 Monocytes # 0.6 Eosinophils # 0.8 H Basophils # 0.0 Immature Plt Fraction Sodium 139 Potassium 3.4 L Chloride 111 H Carbon Dioxide 22 BUN 9 Creatinine 1.02 Est GFR ( Amer) > 60 Est GFR (Non-Af Amer) 55 L BUN/Creatinine Ratio 9 Glucose 109 H POC Glucose 117 H Calculated Osmolality 287 Calcium 7.9 L Phosphorus Magnesium 1.2 L Specimen Rejected 01/23/17 01/23/17 01/23/17 08:17 12:29 16:15 WBC RBC Hgb Hct MCV MCH MCHC RDW Plt Count MPV Immature Gran % Seg Neutrophils % Lymphocytes % Monocytes % Eosinophils % Basophils % Neutrophils # Lymphocytes # Monocytes # Eosinophils # Basophils # Immature Plt Fraction Sodium Potassium Chloride Carbon Dioxide BUN Creatinine Est GFR ( Amer) Est GFR (Non-Af Amer) BUN/Creatinine Ratio Glucose POC Glucose 105 H 99 H 86 Calculated Osmolality Calcium Phosphorus Magnesium Specimen Rejected 01/23/17 01/24/17 01/24/17 19:37 00:25 03:27 WBC RBC Hgb Hct MCV MCH MCHC RDW Plt Count MPV Immature Gran % Seg Neutrophils % Lymphocytes % Monocytes % Eosinophils % Basophils % Neutrophils # Lymphocytes # Monocytes # Eosinophils # Basophils # Immature Plt Fraction Sodium Potassium Chloride Carbon Dioxide BUN Creatinine Est GFR ( Amer) Est GFR (Non-Af Amer) BUN/Creatinine Ratio Glucose POC Glucose 100 H 121 H 92 H Calculated Osmolality Calcium Phosphorus Magnesium Specimen Rejected 01/24/17 01/24/17 01/24/17 07:18 07:18 08:03 WBC 8.9 RBC 2.67 L Hgb 7.9 L Hct 24.8 L MCV 92.9 MCH 29.6 MCHC 31.9 RDW 13.4 Plt Count 246 MPV 9.7 Immature Gran % 0.1 Seg Neutrophils % 66.9 Lymphocytes % 17.2 Monocytes % 5.0 Eosinophils % 10.5 Basophils % 0.3 Neutrophils # 6.0 Lymphocytes # 1.5 Monocytes # 0.5 Eosinophils # 0.9 H Basophils # 0.0 Immature Plt Fraction 1.7 Sodium 140 Potassium 3.5 Chloride 112 H Carbon Dioxide 19 BUN 5 L Creatinine 0.91 Est GFR ( Amer) > 60 Est GFR (Non-Af Amer) > 60 BUN/Creatinine Ratio 5 L Glucose 88 POC Glucose Calculated Osmolality 287 Calcium 7.9 L Phosphorus Magnesium 1.2 L Specimen Rejected Volume 01/24/17 01/24/17 01/24/17 08:34 09:56 11:29 WBC RBC Hgb Hct MCV MCH MCHC RDW Plt Count MPV Immature Gran % Seg Neutrophils % Lymphocytes % Monocytes % Eosinophils % Basophils % Neutrophils # Lymphocytes # Monocytes # Eosinophils # Basophils # Immature Plt Fraction Sodium Potassium Chloride Carbon Dioxide BUN Creatinine Est GFR ( Amer) Est GFR (Non-Af Amer) BUN/Creatinine Ratio Glucose POC Glucose 144 H 191 H 44 L* Calculated Osmolality Calcium Phosphorus Magnesium Specimen Rejected 01/24/17 01/24/17 01/24/17 11:53 12:21 16:29 WBC RBC Hgb Hct MCV MCH MCHC RDW Plt Count MPV Immature Gran % Seg Neutrophils % Lymphocytes % Monocytes % Eosinophils % Basophils % Neutrophils # Lymphocytes # Monocytes # Eosinophils # Basophils # Immature Plt Fraction Sodium Potassium Chloride Carbon Dioxide BUN Creatinine Est GFR ( Amer) Est GFR (Non-Af Amer) BUN/Creatinine Ratio Glucose POC Glucose 103 H 139 H 111 H Calculated Osmolality Calcium Phosphorus Magnesium Specimen Rejected 01/24/17 01/25/17 01/25/17 19:50 00:50 04:06 WBC RBC Hgb Hct MCV MCH MCHC RDW Plt Count MPV Immature Gran % Seg Neutrophils % Lymphocytes % Monocytes % Eosinophils % Basophils % Neutrophils # Lymphocytes # Monocytes # Eosinophils # Basophils # Immature Plt Fraction Sodium Potassium Chloride Carbon Dioxide BUN Creatinine Est GFR ( Amer) Est GFR (Non-Af Amer) BUN/Creatinine Ratio Glucose POC Glucose 127 H 110 H 118 H Calculated Osmolality Calcium Phosphorus Magnesium Specimen Rejected 01/25/17 01/25/17 01/25/17 06:09 06:09 07:39 WBC 7.4 RBC 2.61 L Hgb 7.9 L Hct 24.3 L MCV 93.1 MCH 30.3 MCHC 32.5 RDW 13.4 Plt Count 246 MPV 9.6 Immature Gran % 0.3 Seg Neutrophils % 64.8 Lymphocytes % 16.9 Monocytes % 6.3 Eosinophils % 11.4 Basophils % 0.3 Neutrophils # 4.8 Lymphocytes # 1.2 Monocytes # 0.5 Eosinophils # 0.8 H Basophils # 0.0 Immature Plt Fraction Sodium 140 Potassium 3.0 L Chloride 107 Carbon Dioxide 25 BUN 4 L Creatinine 0.85 Est GFR ( Amer) > 60 Est GFR (Non-Af Amer) > 60 BUN/Creatinine Ratio 5 L Glucose 112 H POC Glucose 115 H Calculated Osmolality 288 Calcium 8.1 L Phosphorus Magnesium 1.2 L Specimen Rejected 01/25/17 01/25/17 01/25/17 11:36 13:29 16:34 WBC RBC Hgb Hct MCV MCH MCHC RDW Plt Count MPV Immature Gran % Seg Neutrophils % Lymphocytes % Monocytes % Eosinophils % Basophils % Neutrophils # Lymphocytes # Monocytes # Eosinophils # Basophils # Immature Plt Fraction Sodium Potassium Chloride Carbon Dioxide BUN Creatinine Est GFR ( Amer) Est GFR (Non-Af Amer) BUN/Creatinine Ratio Glucose POC Glucose 154 H 144 H 111 H Calculated Osmolality Calcium Phosphorus Magnesium Specimen Rejected 01/25/17 01/25/17 01/26/17 20:09 23:00 03:22 WBC RBC Hgb Hct MCV MCH MCHC RDW Plt Count MPV Immature Gran % Seg Neutrophils % Lymphocytes % Monocytes % Eosinophils % Basophils % Neutrophils # Lymphocytes # Monocytes # Eosinophils # Basophils # Immature Plt Fraction Sodium Potassium Chloride Carbon Dioxide BUN Creatinine Est GFR ( Amer) Est GFR (Non-Af Amer) BUN/Creatinine Ratio Glucose POC Glucose 109 H 109 H 104 H Calculated Osmolality Calcium Phosphorus Magnesium Specimen Rejected 01/26/17 01/26/17 07:38 07:41 WBC RBC Hgb Hct MCV MCH MCHC RDW Plt Count MPV Immature Gran % Seg Neutrophils % Lymphocytes % Monocytes % Eosinophils % Basophils % Neutrophils # Lymphocytes # Monocytes # Eosinophils # Basophils # Immature Plt Fraction Sodium 142 Potassium 4.2 D Chloride 108 Carbon Dioxide 27 BUN 4 L Creatinine 0.98 Est GFR ( Amer) > 60 Est GFR (Non-Af Amer) 57 L BUN/Creatinine Ratio 4 L Glucose 105 H POC Glucose 109 H Calculated Osmolality 291 Calcium 8.8 Phosphorus Magnesium 1.3 L Specimen Rejected Labs on day of discharge: Labs from last 24 hours 01/26/17 01/26/17 01/26/17 07:41 07:38 03:22 Sodium 142 Potassium 4.2 D Chloride 108 Carbon Dioxide 27 BUN 4 L Creatinine 0.98 Est GFR ( Amer) > 60 Est GFR (Non-Af Amer) 57 L BUN/Creatinine Ratio 4 L Glucose 105 H POC Glucose 109 H 104 H Calculated Osmolality 291 Calcium 8.8 Magnesium 1.3 L 01/25/17 01/25/17 01/25/17 23:00 20:09 16:34 Sodium Potassium Chloride Carbon Dioxide BUN Creatinine Est GFR ( Amer) Est GFR (Non-Af Amer) BUN/Creatinine Ratio Glucose POC Glucose 109 H 109 H 111 H Calculated Osmolality Calcium Magnesium 01/25/17 01/25/17 13:29 11:36 Sodium Potassium Chloride Carbon Dioxide BUN Creatinine Est GFR ( Amer) Est GFR (Non-Af Amer) BUN/Creatinine Ratio Glucose POC Glucose 144 H 154 H Calculated Osmolality Calcium Magnesium - Impressions ITS Impressions KUB X-Ray 01/21/17 00:00 IMPRESSION: Negative for obvious retained instruments or sponges D/ / Chris Vivar MD / Chris Vivar MD Interpreting Provider: Chris Vivar MD 01/26- Doing well. Regular diet without n/v. + flatus and BM. Ambulating. Date of admission: 01/21/17 15:52 Primary care physician: Mary Puri DO Consults: 01/25/17 09:29 Consult to Physical Therapy [CONS] Routine Comment: Evaluate, develop and implement POC Reason for Consult: assess need for ecf after d/c 01/25/17 09:35 Consult to [facility] [CONS] Stat Reason for SW Consult: evaluate for possible inpatient rehab pending PT recommendations - Patient Status Disposition: Home, Self-Care Condition: Good Functional capacity at discharge: uses cane/walker Overall status at discharge: patient is progressing back to baseline - Discharge Instructions Follow Up With: Salbador Mc MD [Partnered Physician] - - Diet and Activity Activity: as per physical therapy Diet: advance to your usual diet 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
--- NOTE | 2017-01-26 09:04 | Discharge Summary ---
Outpatient Proc Discharge Plan - Plan Prescriptions: Amoxicillin/Clavulanate [Augmentin] 875 mg PO BIDWM #14 tablet diazePAM [Valium] 5 mg PO BID PRN #40 tablet PRN Reason: Anxiety Oxycodone HCl 5 mg PO Q4H PRN #40 tablet PRN Reason: post op pain Home Medications: Pravastatin Sodium [Pravachol] 20 mg PO DAILY 11/28/14 [History] Albuterol Sulfate [Albuterol Inhaler] 2 puff IH Q4HR PRN 01/11/15 [History] Gabapentin [Neurontin] 600 mg PO HS 01/11/15 [History] Meclizine [Antivert] 25 mg PO BID 01/11/15 [History] Melatonin [Melatin] 5 mg PO HS 01/11/15 [History] Montelukast [Singulair] 10 mg PO DAILY 01/11/15 [History] Vitamin B Complex [B Complex] 1 each PO DAILY 01/11/15 [History] Albuterol Neb [Proventil Neb] 2.5 mg IH QID PRN #120 inhsol 06/05/15 [Rx] Acetaminophen [Tylenol] 500 mg PO Q6HR PRN 01/21/17 [History] Colesevelam [Welchol] 1,875 mg PO TID 01/21/17 [History] DiphenhydraMINE [Benadryl] 25 mg PO Q8HR PRN 01/21/17 [History] Doxylamine Succinate [Unisom] 25 mg PO HS PRN 01/21/17 [History] Duloxetine HCl [Cymbalta] 60 mg PO DAILY 01/21/17 [History] Furosemide [Lasix] 20 mg PO DAILY 01/21/17 [History] Labetalol [Trandate] 100 mg PO BID 01/21/17 [History] Lactase [Lactaid] 9,000 unit PO DAILY 01/21/17 [History] Levothyroxine [Synthroid] 88 mcg PO 0630 01/21/17 [History] Loperamide [Imodium] 2 mg PO QID PRN 01/21/17 [History] Loratadine [Allergy Relief] 10 mg PO DAILY 01/21/17 [History] Magnesium Carbonate/Al Hydrox [Gaviscon Es Tablet Chew] 1 tab PO QID 01/21/17 [ History] Metformin HCl [Glucophage] 1,000 mg PO BID 01/21/17 [History] Omeprazole [PriLOSEC] 40 mg PO DAILY 01/21/17 [History] Promethazine [Phenergan] 12.5 - 25 mg PO BID PRN 01/21/17 [History] SUMAtriptan succinate [Imitrex] 50 mg PO Q2H PRN 01/21/17 [History] Amoxicillin/Clavulanate [Augmentin] 875 mg PO BIDWM #14 tablet 01/26/17 [Rx] Oxycodone HCl 5 mg PO Q4H PRN #40 tablet 01/26/17 [Rx] diazePAM [Valium] 5 mg PO BID PRN #40 tablet 01/26/17 [Rx]
== END 2017-01-26 11:24 | disposition home or self-care (01) | DRG 514 ==
LOC: SAMDAY 06:07 → 1NENUOBS 15:52
PROVIDERS: ADMIT Obstetrics & Gynecology; ATTEND Obstetrics & Gynecology

== ENCOUNTER 2017-03-13 23:06 | Inpatient (IN) ==
[2017-03-13] MEDS ORDERED: Ondansetron 4 MG/2 ML VIAL IVP ONE (23:09)
[2017-03-13] MEDS ORDERED: 0.9 % Sodium Chloride 1,000 ML IVC ONE (23:09)
[2017-03-13] MEDS ORDERED: *HR* HYDROmorphone (PF) 1 MG/ML SYRINGE IVP ONE (23:24)
[2017-03-13] MEDS ORDERED: Hyoscyamine 0.5 MG/ML MLS IVP ONE (23:24)
[2017-03-13 23:26] LABS: Basophils # 0.1 K/mcL (0.0-0.2); Basophils % 0.4 %; Eosinophils # 0.4 K/mcL (0.0-0.6); Eosinophils % 2.5 %; Hematocrit 34.7 % (35.3-44.9); Immature Granulocytes % 0.4 % (0-4); Lymphocytes # 2.7 K/mcL (0.6-4.6); Lymphocytes % 15.2 %; Mean Corpuscular HGB Conc 31.7 g/dL (31.6-35.5); Mean Corpuscular Volume 91.6 fL (83.0-100.0); Mean Platelet Volume 9.1 fL (9.4-12.4); Monocytes # 0.7 K/mcL (0.0-1.3); Neutrophils # 13.6 K/mcL (1.6-8.9); Platelet Count 401 K/mcL (140-400); Red Blood Count 3.79 M/mcL (3.82-4.97); Red Cell Distribution Width 13.5 % (11.5-14.5); Segmented Neutrophils % 77.5 %
--- NOTE | 2017-03-13 23:34 | Emergency Department Note ---
Disposition Clinical Impression: Small bowel obstruction Nausea and vomiting Qualifiers: Vomiting type: unspecified Vomiting Intractability: non-intractable Qualified Code(s): R11.2 - Nausea with vomiting, unspecified Disposition: Admitted As Inpatient Condition: Fair Referrals: Mary Puri DO [Primary Care Provider] - Forms: ED Satisfaction Letter, Work/School Release General Adult HPI - General Chief complaint: ED Abdominal Pain Stated complaint: abd pain Time Seen by Provider: 03/13/17 23:08 Source: patient, EMS Limitations: no limitations Nursing Notes Reviewed: Yes Vital Signs Reviewed: Yes - History of Present Illness HPI Narrative: 66-year-old female who last month had a cystocele repair with iatrogenic enterotomy with subsequent partial small bowel resection and anastomosis. Cystocele repair was by Dr. Cordero and partial small bowel resection was by Dr Abdi. She reports she has had intermittent abdominal pain since then. About one week ago she had significant abdominal pain which resolved after a bowel movement. She reports at about 6 PM this evening she had sudden onset of global abdominal pain which progressed to some nausea and vomiting. She has not had a fever. Her last bowel movement was earlier today and it was a little hard but otherwise normal. She does not take any blood thinners. Radiation: non-radiation Pain Severity: severe Pain Scale: 10 Consistency: constant Improves with: nothing Worsens with: nothing Associated symptoms: Reports: denies other symptoms Treatments Prior to Arrival: none - Related Data Home Medications Medication Instructions Recorded Confirmed Pravastatin Sodium [Pravachol] 20 mg PO DAILY 11/28/14 01/21/17 Albuterol Sulfate [Albuterol 2 puff IH Q4HR PRN 01/11/15 01/21/17 Inhaler] Gabapentin [Neurontin] 600 mg PO HS 01/11/15 01/21/17 Meclizine [Antivert] 25 mg PO BID 01/11/15 01/21/17 Melatonin [Melatin] 5 mg PO HS 01/11/15 01/21/17 Montelukast [Singulair] 10 mg PO DAILY 01/11/15 01/21/17 Vitamin B Complex [B Complex] 1 each PO DAILY 01/11/15 01/21/17 Acetaminophen [Tylenol] 500 mg PO Q6HR PRN 01/21/17 01/21/17 Colesevelam [Welchol] 1,875 mg PO TID 01/21/17 01/21/17 DiphenhydraMINE [Benadryl] 25 mg PO Q8HR PRN 01/21/17 01/21/17 Doxylamine Succinate [Unisom] 25 mg PO HS PRN 01/21/17 01/21/17 Duloxetine HCl [Cymbalta] 60 mg PO DAILY 01/21/17 01/21/17 Furosemide [Lasix] 20 mg PO DAILY 01/21/17 01/21/17 Labetalol [Trandate] 100 mg PO BID 01/21/17 01/21/17 Lactase [Lactaid] 9,000 unit PO DAILY 01/21/17 01/21/17 Levothyroxine [Synthroid] 88 mcg PO 0630 01/21/17 01/21/17 Loperamide [Imodium] 2 mg PO QID PRN 01/21/17 01/21/17 Loratadine [Allergy Relief] 10 mg PO DAILY 01/21/17 01/21/17 Magnesium Carbonate/Al Hydrox 1 tab PO QID 01/21/17 01/21/17 [Gaviscon Es Tablet Chew] Metformin HCl [Glucophage] 1,000 mg PO BID 01/21/17 01/21/17 Omeprazole [PriLOSEC] 40 mg PO DAILY 01/21/17 01/21/17 Promethazine [Phenergan] 12.5 - 25 mg PO BID PRN 01/21/17 01/21/17 SUMAtriptan succinate [Imitrex] 50 mg PO Q2H PRN 01/21/17 01/21/17 Previous Rx's Medication Instructions Recorded Albuterol Neb [Proventil Neb] 2.5 mg IH QID PRN #120 inhsol 06/05/15 Amoxicillin/Clavulanate [Augmentin] 875 mg PO BIDWM #14 tablet 01/26/17 Oxycodone HCl 5 mg PO Q4H PRN #40 tablet 01/26/17 diazePAM [Valium] 5 mg PO BID PRN #40 tablet 01/26/17 Allergies Allergy/AdvReac Type Severity Reaction Status Date / Time aspirin Allergy Anaphylaxis Verified 01/21/17 07:05 Buspirone [From BuSpar] Allergy Rash Verified 01/21/17 07:05 caffeine Allergy Anaphylaxis Verified 01/21/17 07:05 chlorpromazine Allergy Itching Verified 01/21/17 07:05 [From Thorazine] codeine Allergy Itching Verified 01/21/17 07:05 lorazepam [From Ativan] Allergy Hives Verified 01/21/17 07:05 morphine Allergy Hives Verified 01/21/17 07:05 prochlorperazine Allergy Hives Verified 01/21/17 07:05 [From Compazine] propoxyphene [From Darvon] Allergy Abdominal Verified 01/21/17 07:05 Pain tramadol Allergy Nausea Verified 01/21/17 07:05 All systems ED: reviewed and negative except as stated. 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 Absent: respiratory distress - Cardiovascular Cardiovascular exam: Present: regular rate, normal rhythm - Abdominal Exam Abdominal exam: Present: soft, tenderness (Generalized tenderness with more tenderness in the mid abdomen) - Extremities Exam Extremities exam: Present: normal inspection - Neurological Exam Neurological exam: Present: alert, oriented X3 - Skin Skin exam: Present: warm, dry Course Course Narrative: small bowel obstruction at the anastomotic line seen on CT scan. No N/V since receiving zofran and pain medication so I will hold off on an NG tube. Spoke with Dr Ahumada who agreed to be a government operations consultant on this case. Requested hospitalist admission. Vital Signs Temperature 98.3 F 03/13/17 23:26 Pulse Rate 84 12/13/17 23:26 Respiratory Rate 16 03/13/17 23:26 Blood Pressure 203/110 03/13/17 23:26 O2 Sat by Pulse Oximetry 100 03/13/17 23:26 Temperature 98.3 F 03/13/17 23:26 Pulse Rate 84 03/13/17 23:26 Respiratory Rate 16 03/13/17 23:26 Blood Pressure 203/110 03/13/17 23:26 O2 Sat by Pulse Oximetry 100 03/13/17 23:26 Oxygen Delivery Oxygen Delivery Room Air Medical Decision Making - Medical Records Medical records reviewed: Yes I reviewed the patient's medical records. - Lab Data Lab results reviewed: Yes I reviewed the patient's lab results. Result diagrams: 03/13/17 23:17 03/13/17 23:17 Lab Results 03/13/17 03/13/17 03/13/17 Range/Units 23:17 23:17 23:17 WBC 17.6 H (4.3-11.1) K/mcL RBC 3.79 L (3.82-4.97) M/mcL Hgb 11.0 L (11.5-15.4) g/dL Hct 34.7 L (35.3-44.9) % MCV 91.6 (83.0-100.0) fL MCH 29.0 (28.0-33.3) pg MCHC 31.7 (31.6-35.5) g/dL RDW 13.5 (11.5-14.5) % Plt Count 401 H (140-400) K/mcL MPV 9.1 L (9.4-12.4) fL Immature Gran % 0.4 (0-4) % Seg Neutrophils % 77.5 % Lymphocytes % 15.2 % Monocytes % 4.0 % Eosinophils % 2.5 % Basophils % 0.4 % Neutrophils # 13.6 H (1.6-8.9) K/mcL Lymphocytes # 2.7 (0.6-4.6) K/mcL Monocytes # 0.7 (0.0-1.3) K/mcL Eosinophils # 0.4 (0.0-0.6) K/mcL Basophils # 0.1 (0.0-0.2) K/mcL Sodium 139 (136-145) mEq/L Potassium 4.0 (3.5-4.5) mEq/L Chloride 101 (98-109) mEq/L Carbon Dioxide 24 (19-29) mEq/L BUN 20 (7-20) mg/dL Creatinine 1.37 H (0.57-1.11) mg/dL Est GFR ( Amer) 47 L (> 60) Est GFR (Non-Af Amer) 39 L (> 60) BUN/Creatinine Ratio 15 (6-26) Glucose 145 H (70-99) mg/dL Calculated Osmolality 293 (280-300) Calcium 10.5 (8.6-10.8) mg/dL Total Bilirubin 0.5 (0.2-1.2) mg/dL Direct Bilirubin 0.2 (0.0-0.5) mg/dL Indirect Bilirubin 0.3 (0.0-1.2) mg/dL AST 15 (5-34) Units/L ALT 10 (0-55) Units/L Alkaline Phosphatase 73 (38-126) Units/L Troponin I 0.01 (0-0.03) ng/mL Serum Total Protein 8.9 H (6.0-8.3) g/dL Albumin 4.6 (3.5-5.0) g/dL Globulin 4.3 H (2.4-3.5) g/dL Albumin/Globulin Ratio 1.1 (1.1-2.2) Lipase 57 (8-78) Units/L Urine Color (Yellow) Urine Clarity (Clear) Urine pH (5.0-8.0) pH Units Ur Specific [place] (1.010-1.025) Urine Protein (Neg-Trace) mg/dL Urine Glucose (UA) (Normal) mg/dL Urine Ketones (Negative) mg/dL Urine Blood (Negative) Urine Nitrite (Negative) Urine Bilirubin (Negative) Urine Urobilinogen (Normal) mg/dL Ur Leukocyte Esterase (Negative) Urine Microscopic RBC (0-3) per hpf Urine Microscopic WBC (0-3) per hpf Ur Squamous Epith Cells (None-Few) per lpf Urine Bacteria (None-Few) per hpf Hyaline Casts (None-Few) per lpf Ur Culture Indicated? (NO) 03/14/17 Range/Units 00:36 WBC (4.3-11.1) K/mcL RBC (3.82-4.97) M/mcL Hgb (11.5-15.4) g/dL Hct (35.3-44.9) % MCV (83.0-100.0) fL MCH (28.0-33.3) pg MCHC (31.6-35.5) g/dL RDW (11.5-14.5) % Plt Count (140-400) K/mcL MPV (9.4-12.4) fL Immature Gran % (0-4) % Seg Neutrophils % % Lymphocytes % % Monocytes % % Eosinophils % % Basophils % % Neutrophils # (1.6-8.9) K/mcL Lymphocytes # (0.6-4.6) K/mcL Monocytes # (0.0-1.3) K/mcL Eosinophils # (0.0-0.6) K/mcL Basophils # (0.0-0.2) K/mcL Sodium (136-145) mEq/L Potassium (3.5-4.5) mEq/L Chloride (98-109) mEq/L Carbon Dioxide (19-29) mEq/L BUN (7-20) mg/dL Creatinine (0.57-1.11) mg/dL Est GFR ( Amer) (> 60) Est GFR (Non-Af Amer) (> 60) BUN/Creatinine Ratio (6-26) Glucose (70-99) mg/dL Calculated Osmolality (280-300) Calcium (8.6-10.8) mg/dL Total Bilirubin (0.2-1.2) mg/dL Direct Bilirubin (0.0-0.5) mg/dL Indirect Bilirubin (0.0-1.2) mg/dL AST (5-34) Units/L ALT (0-55) Units/L Alkaline Phosphatase (38-126) Units/L Troponin I (0-0.03) ng/mL Serum Total Protein (6.0-8.3) g/dL Albumin (3.5-5.0) g/dL Globulin (2.4-3.5) g/dL Albumin/Globulin Ratio (1.1-2.2) Lipase (8-78) Units/L Urine Color Yellow (Yellow) Urine Clarity Clear (Clear) Urine pH 6.5 (5.0-8.0) pH Units Ur Specific [place] 1.013 (1.010-1.025) Urine Protein 100 H (Neg-Trace) mg/dL Urine Glucose (UA) Normal (Normal) mg/dL Urine Ketones Negative (Negative) mg/dL Urine Blood Negative (Negative) Urine Nitrite Negative (Negative) Urine Bilirubin Negative (Negative) Urine Urobilinogen Normal (Normal) mg/dL Ur Leukocyte Esterase Negative (Negative) Urine Microscopic RBC 0-3 (0-3) per hpf Urine Microscopic WBC 0-3 (0-3) per hpf Ur Squamous Epith Cells None Seen (None-Few) per lpf Urine Bacteria None Seen (None-Few) per hpf Hyaline Casts None Seen (None-Few) per lpf Ur Culture Indicated? NO (NO) - Radiology Data Radiology results reviewed: Yes I reviewed the patient's radiology results. Attestation Statement - Attestation Attestation: I examined this patient and my medical decision-making was reviewed with the Resident Physician. I agree with the documented findings, disposition and treatment plan as described except to the extent set forth below. Findings consistent with bowel obstruction. Plan to admit for general surgery consultation. No recommendation for NG tube placement at this time.
[2017-03-13 23:41] LABS: Albumin 4.6 g/dL (3.5-5.0); Albumin/Globulin Ratio 1.1 (1.1-2.2); Bilirubin,Direct 0.2 mg/dL (0.0-0.5); Bilirubin,Indirect 0.3 mg/dL (0.0-1.2); Bilirubin,Total 0.5 mg/dL (0.2-1.2); Calcium 10.5 mg/dL (8.6-10.8); Globulin 4.3 g/dL (2.4-3.5); Total Protein 8.9 g/dL (6.0-8.3)
[2017-03-14 00:43] LABS: Bilirubin,Urine Negative (Negative); Blood,Urine Negative (Negative); Clarity,Urine Clear (Clear); Color,Urine Yellow (Yellow); Glucose,Urine (UA) Normal (Normal); Ketones,Urine Negative (Negative); Leukocyte Esterase,Urine Negative (Negative); Nitrite,Urine Negative (Negative); PH,Urine 6.5 pH Units (5.0-8.0); Protein,Urine 100 mg/dL (Neg-Trace); Specific Gravity,Urine 1.013 (1.010-1.025); Urobilinogen,Urine Normal (Normal)
[2017-03-14 00:45] LABS: Bacteria,Urine None Seen per hpf (None-Few); Hyaline Casts,Urine None Seen per lpf (None-Few); RBC,Urine 0-3 per hpf (0-3); Squamous Epithelial Cell,Urine None Seen per lpf (None-Few); WBC,Urine 0-3 per hpf (0-3)
[2017-03-14] MEDS ORDERED: *HR* HYDROmorphone (PF) 1 MG/ML SYRINGE IVP ONE (01:19)
[2017-03-14] MEDS ORDERED: Ondansetron 4 MG/2 ML VIAL IVP ONE (01:19)
[2017-03-14] MEDS ORDERED: Naloxone 0.4 MG/ML INJ IVP PRN (02:13)
[2017-03-14] MEDS ORDERED: Ondansetron 4 MG/2 ML VIAL IVP PRN (02:13)
[2017-03-14] MEDS ORDERED: Acetaminophen 325 MG TABLET PO PRN (02:13)
[2017-03-14] MEDS ORDERED: *HR* LORazepam 2 MG/ML VIAL IVP PRN (02:17)
--- NOTE | 2017-03-14 02:24 | Internal Med History&Physical ---
Date of Encounter: 03/14/17 Time of Encounter: 01:20 Assessment and Plan (1) Small bowel obstruction Current visit: Yes Status: Acute Admit the pt into Med Surg Reviewed her CT of Abd / Pelvis -showed marked dilation of small bowel proximal to a transition point within the mid abdomen near an anastomotic suture line compatible with a high grade SBO Strict NPO for now ER attending already talked to pt,, who recommend not to put NG tube now since she is not throwing actively so if she started having vomitings, will put a NG tube IV analgesics PRN conservative care for now with serial abdominal examinations she is high risk fro surgery IV hydration Explained this plan of care to pt if pt tolerates will give her stool softeners too (2) Nausea and vomiting Current visit: Yes Status: Acute on anti emetics Qualifiers: Vomiting type: unspecified Vomiting Intractability: intractable Qualified Code(s): R11.2 - Nausea with vomiting, unspecified (3) Abdominal pain Current visit: No Status: Acute Due to SBO cont supportive care Qualifiers: Abdominal location: generalized Qualified Code(s): R10.84 - Generalized abdominal pain (4) REGINE (acute kidney injury) Current visit: Yes Status: Acute due to dehydration started her on IV fluids (5) Diabetes type 2, controlled Current visit: No Status: Chronic On ISS at medium Qualifiers: Diabetes mellitus complication status: without complication 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: without local intermodal truck driver use Qualified Code(s): E11.9 - Type 2 diabetes mellitus without complications (6) Iatrogenic enterotomy Current visit: No Status: Resolved s/p lysis of adhesion and small bowel resection surgery consulted (7) DVT prophylaxis Current visit: No Status: Acute on Heparin SQ (8) HTN (hypertension) Current visit: No Status: Chronic Unable to give PO meds so started her on Hydralazine IV PRN Qualifiers: Hypertension type: essential hypertension Qualified Code(s): I10 - Essential (primary) hypertension Internal Medicine - H&P: HPI Chief complaint: Abdominal pain Admitted From: Emergency Dept Plans for Post Hospital Care: Home History of present illness: Ms. Michelle is a 66 year old female with known PMH of COPD, HTN, HLD, DM2, Fibromyalgia, who recently had attempted sacrocolpoplexy for pelvic organ prolapse with stage 4 cystocele on 02/22/[address] Mc. Apparently her surgery was complicated by dense adhesions and enterotomy. So pt did go for lysis of adhesions and, small bowel resection with primary anastomosis by surgery Dr. Abdi. Now pt came back to ER today c/o worsening abdominal pain from last 2 days with intractable nausea and vomiting from last 24hrs. She happened to have at least 8-9 bilious vomiting last night. Now she denied any vomiting after coming to ER. She also stated constipation. Denied any fever / chills. She had further work up done in the ER, her CT of Abd showed marked dilation of small bowel proximal to a transition point within the mid abdomen near an anastomotic suture line compatible with a high grade SBO. Past Med Surg Social Fam HX - Past Medical History Medical history: arthritis, asthma, cardiomyopathy, COPD, diabetes, fibromyalgia , hypertension, renal disease, other Psychiatric history: anxiety, depression - Past Surgical History Surgical History: coronary bypass (CABG), hysterectomy, other - Social History Smoking Status: Never smoker Smokeless Tobacco Status: No Alcohol use: none Drug use: none - Family History Mother Adopted: No Family Member Ethnicity: Non- Living Status: Hx Family Cardiac Disorders: Yes Hx Family Respiratory Disorders: Yes Hx Family Cancer: No Hx Family GI Disorders: Yes Hx Family Endocrine Disorder: No Hx Family Neuromuscular Disorders: No Hx Family Neurologic Disorders: No Hx Family HEENT Disorders: No Hx Family Autoimmune Disorders: No Internal Medicine - H&P: Meds Pravastatin Sodium [Pravachol] 20 mg PO DAILY 11/28/14 [History] Albuterol Sulfate [Albuterol Inhaler] 2 puff IH Q4HR PRN 01/11/15 [History] Gabapentin [Neurontin] 600 mg PO HS 01/11/15 [History] Meclizine [Antivert] 25 mg PO BID 01/11/15 [History] Melatonin [Melatin] 5 mg PO HS 01/11/15 [History] Montelukast [Singulair] 10 mg PO DAILY 01/11/15 [History] Vitamin B Complex [B Complex] 1 each PO DAILY 01/11/15 [History] Albuterol Neb [Proventil Neb] 2.5 mg IH QID PRN #120 inhsol 06/05/15 [Rx] Acetaminophen [Tylenol] 500 mg PO Q6HR PRN 01/21/17 [History] Colesevelam [Welchol] 1,875 mg PO TID 01/21/17 [History] DiphenhydraMINE [Benadryl] 25 mg PO Q8HR PRN 01/21/17 [History] Doxylamine Succinate [Unisom] 25 mg PO HS PRN 01/21/17 [History] Duloxetine HCl [Cymbalta] 60 mg PO DAILY 01/21/17 [History] Furosemide [Lasix] 20 mg PO DAILY 01/21/17 [History] Labetalol [Trandate] 100 mg PO BID 01/21/17 [History] Lactase [Lactaid] 9,000 unit PO DAILY 01/21/17 [History] Levothyroxine [Synthroid] 88 mcg PO 0630 01/21/17 [History] Loperamide [Imodium] 2 mg PO QID PRN 01/21/17 [History] Loratadine [Allergy Relief] 10 mg PO DAILY 01/21/17 [History] Magnesium Carbonate/Al Hydrox [Gaviscon Es Tablet Chew] 1 tab PO QID 01/21/17 [ History] Metformin HCl [Glucophage] 1,000 mg PO BID 01/21/17 [History] Omeprazole [PriLOSEC] 40 mg PO DAILY 01/21/17 [History] Promethazine [Phenergan] 12.5 - 25 mg PO BID PRN 01/21/17 [History] SUMAtriptan succinate [Imitrex] 50 mg PO Q2H PRN 01/21/17 [History] Amoxicillin/Clavulanate [Augmentin] 875 mg PO BIDWM #14 tablet 01/26/17 [Rx] Oxycodone HCl 5 mg PO Q4H PRN #40 tablet 01/26/17 [Rx] diazePAM [Valium] 5 mg PO BID PRN #40 tablet 01/26/17 [Rx] 3 Allergy/AdvReac Type Severity Reaction Status Date / Time aspirin Allergy Anaphylaxis Verified 01/21/17 07:05 Buspirone [From BuSpar] Allergy Rash Verified 01/21/17 07:05 caffeine Allergy Anaphylaxis Verified 01/21/17 07:05 chlorpromazine Allergy Itching Verified 01/21/17 07:05 [From Thorazine] codeine Allergy Itching Verified 01/21/17 07:05 lorazepam [From Ativan] Allergy Hives Verified 01/21/17 07:05 morphine Allergy Hives Verified 01/21/17 07:05 prochlorperazine Allergy Hives Verified 01/21/17 07:05 [From Compazine] propoxyphene [From Darvon] Allergy Abdominal Verified 01/21/17 07:05 Pain tramadol Allergy Nausea Verified 01/21/17 07:05 All Systems PM: A 10-system review of systems was performed and is negative for pertinent findings except as documented above in the HPI. Review of systems: All the systems are reviewed everything is benign except the systems and symptoms I mentioned in the history of present illness - Constitutional Vitals: Temp Pulse Resp BP Pulse Ox 98.3 F 99 16 150/102 98 03/13/17 23:26 03/14/17 01:18 03/14/17 01:18 03/14/17 01:18 03/14/17 01:18 General appearance: Present: A&O X 3, no acute distress, answers questions appropriately - Head Head exam: Present: atraumatic, normal inspection - Neck Neck exam general surgery: Present: supple - Respiratory Respiratory exam: Present: decreased breath sounds. Absent: rales, respiratory distress, rhonchi, wheezes - Cardiovascular Cardiovascular exam: Present: RRR, +S1, +S2. Absent: systolic murmur - GI/Abdominal GI/Abdominal exam: Present: distended, normal bowel sounds, soft, no peritoneal signs. Absent: guarding, rebound, rigid, tenderness - Extremities Exam Extremities exam: Absent: calf tenderness, pedal edema, tenderness - Back Exam Back exam: Absent: CVA tenderness (L), CVA tenderness (R) - Neurological Exam Neurological exam: Present: alert, oriented X3 - Psychiatric Psychiatric exam: Present: normal affect, normal mood - Skin Skin exam: Absent: rash Internal Med - H&P Results - Labs CBC & Chem 7: 03/13/17 23:17 03/13/17 23:17
[2017-03-14] MEDS: D5% in 0.45% NACL 1,000 ML IVC SCH ×2 (02:36→11:31)
[2017-03-14] MEDS: *HR* Promethazine 25 MG/ML VIAL IVP PRN ×2 (02:45→11:28)
[2017-03-14] MEDS ORDERED: *HR* Dextrose 50 % in Water (Syg) 50 ML SYRINGE IVP PRN (02:50)
[2017-03-14] MEDS ORDERED: D5% in Water 1,000 ML IVC PRN (02:50)
[2017-03-14] MEDS ORDERED: Dextrose Gel 15 GM PO PRN ×2 (02:50)
[2017-03-14] MEDS: Insulin LISPRO 300 UNITS/3 ML VIAL SQ SCH ×3 (05:29→17:15)
[2017-03-14 07:33] LABS: Basophils % 0.3 %; Eosinophils # 0.2 K/mcL (0.0-0.6); Eosinophils % 1.6 %; Hematocrit 31.4 % (35.3-44.9); Hemoglobin 9.8 g/dL (11.5-15.4); Immature Granulocytes % 0.4 % (0-4); Lymphocytes # 1.8 K/mcL (0.6-4.6); Lymphocytes % 15.5 %; Mean Corpuscular HGB Conc 31.2 g/dL (31.6-35.5); Mean Corpuscular Hemoglobin 29.1 pg (28.0-33.3); Mean Corpuscular Volume 93.2 fL (83.0-100.0); Mean Platelet Volume 9.2 fL (9.4-12.4); Monocytes # 0.6 K/mcL (0.0-1.3); Monocytes % 5.4 %; Neutrophils # 8.9 K/mcL (1.6-8.9); Platelet Count 309 K/mcL (140-400); Red Blood Count 3.37 M/mcL (3.82-4.97); Red Cell Distribution Width 13.6 % (11.5-14.5); Segmented Neutrophils % 76.8 %
[2017-03-14 07:46] LABS: Magnesium 1.7 mg/dL (1.6-2.6); Potassium 3.9 mEq/L (3.5-4.5)
[2017-03-14 07:51] LABS: Calcium 8.9 mg/dL (8.6-10.8)
[2017-03-14] MEDS: *HR* Morphine 2 MG/ML SYRINGE IVP PRN ×4 (08:49→22:07)
[2017-03-14] MEDS ORDERED: Lidocaine Viscous Oral Soln 15 ML SOLUTION MM ONE (10:08)
[2017-03-14] MEDS ORDERED: Chloraseptic Spray 177 ML BOTTLE MM PRN (10:08)
--- NOTE | 2017-03-14 11:40 | General Surgery Consult Note ---
<Natalia Siu - Last Filed: 03/14/17 15:12> Date of Encounter: 03/14/17 Time of Encounter: 11:39 Assessment and Plan (1) Small bowel obstruction Current Visit: Yes Status: Acute Azucena states intractable vomiting at home. She presented to the emergency department regarding. A CT scan was obtained which reveals market dilation of the small bowel proximal to a transition point within the mid abdomen near and anastomotic suture line compatible with a small bowel obstruction probably high- grade, a small hiatal hernia, and diverticulosis without evidence of diverticulitis. .Pt refuses NG this am. Attempted to reinforce need for NG with patient and offered to personally place NG. Pt states, "I have the rights to refuse if I want and I don't want that thing." Pt is agreeable to re-evaluation this afternoon and would consider NG placement at that time. Re-evaluation 1400: patient initially agrees to HEAD CAGER placing NG tube. Patient was appropriately anesthetized with 11 ML's of lidocaine jelly in the right and left nares. Patient would not permit entry of NG tube pass the nasal mucosa. She states that "no it just hurts too much I don't want it." And grabs the HEAD CAGER' s hand and pushes it away. The patient is again educated regarding high-grade small bowel obstruction, and need for NG placement for adequate bowel rest and decompression for conservative management, benefits regarding and risks of not adhering to recommendations including worsening small bowel obstruction, small bowel perforation or ischemia, need for emergent procedure, and further morbidity up to and including . Patient again refuses NG tube and states she would prefer to "see if this would resolve on its own." She states understanding of the recommendations, the benefits, and the risks associated as previously described. Plan: 1. NG to LIWS for appropriate conservative treatment 2. Serial abdominal exams 3. NPO History of Present Illness Consult date: 03/14/17 (Dr. Brenda Abdi) Reason for consult: abdominal pain Requesting physician: Moris Landry History of present illness: Reason for Consult: Small bowel obstruction Consulted Surgeon: Dr. Abdi Azucena is a 66-year-old female who was admitted on 03/13/2017 with complaints of nausea and vomiting. She has a history of recent COPD, HTN, HLD, type II diabetes, fibromyalgia, pelvic organ prolapse with resultant stage forces to feel that was repaired on 02/21/2017. 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 Dr. Abdi was called into the operating room where she performed a small bowel lysis of adhesions for over one hour, and a small bowel resection with primary anastomosis and the remainder of his hospital course was complicated by pain control and her chronic consitpation, but She was d/c'd on 01/26/2017 and did not follow-up in the office as directed. She presented 03/13/2017 with complaints of severe nausea and vomiting. She reports she had been taking her home laxative doses, typically will have a bowel movement every 4 to 5 days, last bowel movement was yesterday soft, Brown , and formed. She denies chest pain, shortness of breath, fevers, diarrhea, black, bloody, or tarry stool, urinary signs or symptoms, generalized weakness, or changes in her medical regimen. Past Med Surg Social Fam HX - Past Medical History Medical history: arthritis, asthma, cardiomyopathy, COPD, diabetes, fibromyalgia , hypertension, renal disease, other Psychiatric history: anxiety, depression - Past Surgical History Surgical History: coronary bypass (CABG), hysterectomy, other - Social History Smoking Status: Never smoker Smokeless Tobacco Status: No Alcohol use: none Drug use: none - Family History Mother Adopted: No Family Member Ethnicity: Non- Living Status: Hx Family Cardiac Disorders: Yes Hx Family Respiratory Disorders: Yes Hx Family Cancer: No Hx Family GI Disorders: Yes Hx Family Endocrine Disorder: No Hx Family Neuromuscular Disorders: No Hx Family Neurologic Disorders: No Hx Family HEENT Disorders: No Hx Family Autoimmune Disorders: No Medications and Allergies Pravastatin Sodium [Pravachol] 20 mg PO DAILY 11/28/14 [History] Albuterol Sulfate [Albuterol Inhaler] 2 puff IH Q4HR PRN 01/11/15 [History] Gabapentin [Neurontin] 600 mg PO HS 01/11/15 [History] Meclizine [Antivert] 25 mg PO BID 01/11/15 [History] Melatonin [Melatin] 5 mg PO HS 01/11/15 [History] Montelukast [Singulair] 10 mg PO DAILY 01/11/15 [History] Vitamin B Complex [B Complex] 1 each PO DAILY 01/11/15 [History] Albuterol Neb [Proventil Neb] 2.5 mg IH QID PRN #120 inhsol 06/05/15 [Rx] Acetaminophen [Tylenol] 500 mg PO Q6HR PRN 01/21/17 [History] Colesevelam [Welchol] 1,875 mg PO TID 01/21/17 [History] DiphenhydraMINE [Benadryl] 25 mg PO Q8HR PRN 01/21/17 [History] Doxylamine Succinate [Unisom] 25 mg PO HS PRN 01/21/17 [History] Duloxetine HCl [Cymbalta] 60 mg PO DAILY 01/21/17 [History] Furosemide [Lasix] 20 mg PO DAILY 01/21/17 [History] Labetalol [Trandate] 100 mg PO BID 01/21/17 [History] Lactase [Lactaid] 9,000 unit PO DAILY 01/21/17 [History] Levothyroxine [Synthroid] 88 mcg PO 0630 01/21/17 [History] Loperamide [Imodium] 2 mg PO QID PRN 01/21/17 [History] Loratadine [Allergy Relief] 10 mg PO DAILY 01/21/17 [History] Magnesium Carbonate/Al Hydrox [Gaviscon Es Tablet Chew] 1 tab PO QID 01/21/17 [ History] Metformin HCl [Glucophage] 1,000 mg PO BID 01/21/17 [History] Omeprazole [PriLOSEC] 40 mg PO DAILY 01/21/17 [History] Promethazine [Phenergan] 12.5 - 25 mg PO BID PRN 01/21/17 [History] SUMAtriptan succinate [Imitrex] 50 mg PO Q2H PRN 01/21/17 [History] Amoxicillin/Clavulanate [Augmentin] 875 mg PO BIDWM #14 tablet 01/26/17 [Rx] diazePAM [Valium] 5 mg PO BID PRN #40 tablet 01/26/17 [Rx] 3 Allergy/AdvReac Type Severity Reaction Status Date / Time aspirin Allergy Anaphylaxis Verified 01/21/17 07:05 Buspirone [From BuSpar] Allergy Rash Verified 01/21/17 07:05 caffeine Allergy Anaphylaxis Verified 01/21/17 07:05 chlorpromazine Allergy Itching Verified 01/21/17 07:05 [From Thorazine] codeine Allergy Itching Verified 01/21/17 07:05 lorazepam [From Ativan] Allergy Hives Verified 01/21/17 07:05 morphine Allergy Hives Verified 01/21/17 07:05 prochlorperazine Allergy Hives Verified 01/21/17 07:05 [From Compazine] propoxyphene [From Darvon] Allergy Abdominal Verified 01/21/17 07:05 Pain tramadol Allergy Nausea Verified 01/21/17 07:05 Review of Systems All systems PM: reviewed and no additional remarkable complaints except as stated All systems PM: A 10-system review of systems was performed and is negative for pertinent findings except as documented above in the HPI. General Surgery Exam Initial Vital Signs Temp Pulse Resp BP Pulse Ox 98.3 F 84 16 203/110 100 03/13/17 23:26 03/13/17 23:26 03/13/17 23:26 03/13/17 23:26 03/13/17 23:26 - Additional Findings VITAL SIGNS: Reviewed. GENERAL: In no apparent distress. HEENT: Atraumatic, normocephalic, normal occular movements, hearing grossly intact. Oropharynx WNL NECK: No adenopathy, no JVD. CHEST: Chest with clear breath sounds bilaterally. No wheezes, rales, or rhonchi. CARDIAC: Regular rate and rhythm. S1 and S2, without murmurs, gallops, or rubs. VASCULAR: No Edema. Peripheral pulses normal and equal in all extremities. ABDOMEN: No signs of trauma or bleeding noted. Bowel sounds are absent. Soft, nontender. MUSCULOSKELETAL: No focal deficits noted. NEUROLOGIC EXAM: Alert and oriented x 3. No focal sensory or strength deficits. Speech normal. Follows commands. PSYCHIATRIC: Pleasant affect. Mood normal. SKIN: No rash or lesions. Exam Initial Vital Signs Temp Pulse Resp BP Pulse Ox 98.3 F 84 16 203/110 100 03/13/17 23:26 03/13/17 23:26 03/13/17 23:26 03/13/17 23:26 03/13/17 23:26 Results - Labs 03/14/17 06:55 03/14/17 06:55 Abnormal lab results WBC 11.6 K/mcL (4.3-11.1) H 03/14/17 06:55 RBC 3.37 M/mcL (3.82-4.97) L 03/14/17 06:55 Hgb 9.8 g/dL (11.5-15.4) L 03/14/17 06:55 Hct 31.4 % (35.3-44.9) L 03/14/17 06:55 MCHC 31.2 g/dL (31.6-35.5) L 03/14/17 06:55 MPV 9.2 fL (9.4-12.4) L 03/14/17 06:55 Creatinine 1.14 mg/dL (0.57-1.11) H 03/14/17 06:55 Est GFR ( Amer) 58 (> 60) L 03/14/17 06:55 Est GFR (Non-Af Amer) 48 (> 60) L 03/14/17 06:55 Glucose 124 mg/dL (70-99) H 03/14/17 06:55 Serum Total Protein 8.9 g/dL (6.0-8.3) H 03/13/17 23:17 Globulin 4.3 g/dL (2.4-3.5) H 03/13/17 23:17 Urine Protein 100 mg/dL (Neg-Trace) H 03/14/17 00:36 Diabetes panel 03/14/17 Range/Units 06:55 Sodium 142 (136-145) mEq/L Potassium 3.9 (3.5-4.5) mEq/L Chloride 107 (98-109) mEq/L Carbon Dioxide 27 (19-29) mEq/L BUN 18 (7-20) mg/dL Creatinine 1.14 H (0.57-1.11) mg/dL Glucose 124 H (70-99) mg/dL Calcium 8.9 D (8.6-10.8) mg/dL Calcium panel 03/14/17 Range/Units 06:55 Calcium 8.9 D (8.6-10.8) mg/dL Pituitary panel 03/14/17 Range/Units 06:55 Sodium 142 (136-145) mEq/L Potassium 3.9 (3.5-4.5) mEq/L Chloride 107 (98-109) mEq/L Carbon Dioxide 27 (19-29) mEq/L BUN 18 (7-20) mg/dL Creatinine 1.14 H (0.57-1.11) mg/dL Glucose 124 H (70-99) mg/dL Calcium 8.9 D (8.6-10.8) mg/dL Adrenal panel 03/14/17 Range/Units 06:55 Sodium 142 (136-145) mEq/L Potassium 3.9 (3.5-4.5) mEq/L Chloride 107 (98-109) mEq/L Carbon Dioxide 27 (19-29) mEq/L BUN 18 (7-20) mg/dL Creatinine 1.14 H (0.57-1.11) mg/dL Glucose 124 H (70-99) mg/dL Calcium 8.9 D (8.6-10.8) mg/dL All other labs normal. - Imaging CT scan - abdomen: report reviewed CT scan - pelvis: report reviewed Additional studies: Abdomen/Pelvis CT 03/13/17 23:09 IMPRESSION: 1. Marked dilation of small bowel proximal to a transition point within the mid abdomen near an anastomotic suture line, compatible with a small bowel obstruction, probably high-grade. 2. Small hiatal hernia. 3. Diverticulosis without CT evidence of diverticulitis. D/ / Walker Foster MD / Walker Foster MD Interpreting Provider: Walker Foster MD Consult Discharge Plan - Plan Referrals: Mary Puri DO [Primary Care Provider] - (web request sent on 03/14/17) <Brenda Abdi - Last Filed: 03/14/17 15:17> Date of Encounter: 03/14/17 Time of Encounter: 14:59 Assessment and Plan (1) Nausea and vomiting Current Visit: Yes Status: Acute patient is to be STRICT npo she is still refusing an ngt despite my discussion with her regarding how it will help decompress the small bowel and potentially help resolve her sbo without surgery no ice chips or water, no po meds OOB to chair prn antiemetics minimize pain control start reglan Qualifiers: Vomiting type: unspecified Vomiting Intractability: intractable Qualified Code(s): R11.2 - Nausea with vomiting, unspecified (2) Small bowel obstruction Current Visit: Yes Status: Acute npo, ivf hydration continue discussion with patient regarding need for ngt antiemetic serial abdominal exams gi/dvt prophylaxis minimize narcotics start reglan (3) Abdominal pain Current Visit: No Status: Acute iv tylenol and morphine prn Qualifiers: Abdominal location: generalized Qualified Code(s): R10.84 - Generalized abdominal pain (4) Acute sinusitis Current Visit: No Status: Acute start flonase Qualifiers: Sinusitis location: unspecified location Recurrence: non-recurrent Qualified Code(s): J01.90 - Acute sinusitis, unspecified (5) Hypothyroid Current Visit: Yes Status: Chronic continue iv synthroid Qualifiers: Hypothyroidism type: unspecified Qualified Code(s): E03.9 - Hypothyroidism , unspecified History of Present Illness History of present illness: Patient was doing well until about 2 weeks ago she started having midabdominal pain which she describes as sharp without radiation. She did not have nausea or emesis until yesterday, no hematemesis. She had a bm yesterday, she is still passing flatus. She is refusing an ngt but is still nauseated even on promethazine. No fevers,chills or night sweats Past Med Surg Social Fam HX - Past Medical History Source: patient - Past Surgical History Surgical History: other (sinus surgery, lysis of adhesions and small bowel resection) Review of Systems All systems PM: reviewed and no additional remarkable complaints except as stated All systems PM: A 10-system review of systems was performed and is negative for pertinent findings except as documented above in the HPI. General Surgery Exam Initial Vital Signs Temp Pulse Resp BP Pulse Ox 98.3 F 84 16 203/110 100 03/13/17 23:26 03/13/17 23:26 03/13/17 23:26 03/13/17 23:26 03/13/17 23:26 - General physical appearance well developed, moderate distress - Eyes PERRL, normal ocular movement - ENT normal mucosa, normocephalic - Neck trachea midline - Respiratory normal expansion, normal respiratory effort - Cardiovascular Cardiovascular exam: Present: RRR - Abdomen Abdomen general surgery: Present: soft, tender (midabdomen, mild tenderness). Absent: guarding, rebound - Incision Incision: Present: intact (healed) - Integumentary Integumentary general surgery: Present: warm and dry, no abnormal pigmentation - Neurologic Present: CN 2-12 grossly intact - Musculoskeletal Present: normal posture - Psychiatric Psychiatric general surgery: Present: A&Ox3, speech is normal Exam Initial Vital Signs Temp Pulse Resp BP Pulse Ox 98.3 F 84 16 203/110 100 03/13/17 23:26 03/13/17 23:26 03/13/17 23:26 03/13/17 23:26 03/13/17 23:26 Results - Labs 03/14/17 06:55 03/14/17 06:55 Abnormal lab results WBC 11.6 K/mcL (4.3-11.1) H 03/14/17 06:55 RBC 3.37 M/mcL (3.82-4.97) L 03/14/17 06:55 Hgb 9.8 g/dL (11.5-15.4) L 03/14/17 06:55 Hct 31.4 % (35.3-44.9) L 03/14/17 06:55 MCHC 31.2 g/dL (31.6-35.5) L 03/14/17 06:55 MPV 9.2 fL (9.4-12.4) L 03/14/17 06:55 Creatinine 1.14 mg/dL (0.57-1.11) H 03/14/17 06:55 Est GFR ( Amer) 58 (> 60) L 03/14/17 06:55 Est GFR (Non-Af Amer) 48 (> 60) L 03/14/17 06:55 Glucose 124 mg/dL (70-99) H 03/14/17 06:55 POC Glucose 141 (58-89) H 03/14/17 05:28 Serum Total Protein 8.9 g/dL (6.0-8.3) H 03/13/17 23:17 Globulin 4.3 g/dL (2.4-3.5) H 03/13/17 23:17 Urine Protein 100 mg/dL (Neg-Trace) H 03/14/17 00:36 Diabetes panel 03/14/17 Range/Units 06:55 Sodium 142 (136-145) mEq/L Potassium 3.9 (3.5-4.5) mEq/L Chloride 107 (98-109) mEq/L Carbon Dioxide 27 (19-29) mEq/L BUN 18 (7-20) mg/dL Creatinine 1.14 H (0.57-1.11) mg/dL Glucose 124 H (70-99) mg/dL Calcium 8.9 D (8.6-10.8) mg/dL Calcium panel 03/14/17 Range/Units 06:55 Calcium 8.9 D (8.6-10.8) mg/dL Pituitary panel 03/14/17 Range/Units 06:55 Sodium 142 (136-145) mEq/L Potassium 3.9 (3.5-4.5) mEq/L Chloride 107 (98-109) mEq/L Carbon Dioxide 27 (19-29) mEq/L BUN 18 (7-20) mg/dL Creatinine 1.14 H (0.57-1.11) mg/dL Glucose 124 H (70-99) mg/dL Calcium 8.9 D (8.6-10.8) mg/dL Adrenal panel 03/14/17 Range/Units 06:55 Sodium 142 (136-145) mEq/L Potassium 3.9 (3.5-4.5) mEq/L Chloride 107 (98-109) mEq/L Carbon Dioxide 27 (19-29) mEq/L BUN 18 (7-20) mg/dL Creatinine 1.14 H (0.57-1.11) mg/dL Glucose 124 H (70-99) mg/dL Calcium 8.9 D (8.6-10.8) mg/dL All other labs normal. - Imaging CT scan - abdomen: report reviewed, image reviewed CT scan - pelvis: report reviewed, image reviewed - Attending Attestation I have personally performed a face to face evaluation on this patient. I have reviewed and agree with the care plan. History and Exam by me shows:
[2017-03-14] MEDS: Levothyroxine Sodium 100 MCG VIAL IVP SCH (13:28)
--- NOTE | 2017-03-14 13:38 | Event Note ---
Date of Encounter: 03/14/17 Time of Encounter: 12:10 Patient complains of abdominal pain. Has not had any new episodes of nausea since last night. Denies any fever or chills. Was unable to tolerate placement of nasogastric tube earlier today. Surgery consulted. Will follow recommendations. Continue supportive care. IV hydration. Pain control.
[2017-03-14] MEDS ORDERED: Lidocaine Jelly 11 ml Syringe TP STA (13:55)
[2017-03-14] MEDS ORDERED: Acetaminophen IV 500 MG/50 ML INFUS..BTL IVPB PRN (15:08)
[2017-03-14] MEDS: Fluticasone Propionate Nasal 50 MCG/SPRAY BOTTLE NS SCH (16:36)
[2017-03-14] MEDS: Metoclopramide 10 MG in 0.9 % Sodium Chloride 50 ML IVPB SCH ×2 (16:36→22:06)
[2017-03-14] MEDS: *HR* Metoprolol 5 MG/5 ML VIAL IVP SCH ×2 (16:37→20:33)
[2017-03-15] MEDS: *HR* Metoprolol 5 MG/5 ML VIAL IVP SCH ×4 (00:56→11:51)
[2017-03-15] MEDS: Insulin LISPRO 300 UNITS/3 ML VIAL SQ SCH ×3 (00:56→11:42)
[2017-03-15 04:54] LABS: Basophils % 0.2 %; Eosinophils # 0.2 K/mcL (0.0-0.6); Eosinophils % 2.4 %; Hematocrit 32.5 % (35.3-44.9); Hemoglobin 9.9 g/dL (11.5-15.4); Immature Granulocytes % 0.2 % (0-4); Lymphocytes # 2.1 K/mcL (0.6-4.6); Lymphocytes % 23.4 %; Mean Corpuscular HGB Conc 30.5 g/dL (31.6-35.5); Mean Corpuscular Hemoglobin 28.8 pg (28.0-33.3); Mean Corpuscular Volume 94.5 fL (83.0-100.0); Mean Platelet Volume 9.1 fL (9.4-12.4); Monocytes # 0.5 K/mcL (0.0-1.3); Monocytes % 5.8 %; Neutrophils # 6.1 K/mcL (1.6-8.9); Nucleated Red Blood Cells 0.3 /100 WBC (0); Platelet Count 280 K/mcL (140-400); Red Blood Count 3.44 M/mcL (3.82-4.97); Red Cell Distribution Width 13.5 % (11.5-14.5)
[2017-03-15 05:08] LABS: BUN/Creatinine Ratio 11 (6-26); Blood Urea Nitrogen 12 mg/dL (7-20); Calcium 8.8 mg/dL (8.6-10.8); Carbon Dioxide 26 mEq/L (19-29); Chloride 106 mEq/L (98-109); Glucose 107 mg/dL (70-99); Osmolality,Calculated 292 (280-300); Potassium 3.5 mEq/L (3.5-4.5); Sodium 141 mEq/L (136-145); eGFR For African Americans > 60 (> 60); eGFR For Non-African Americans 51 (> 60)
[2017-03-15] MEDS: Levothyroxine Sodium 100 MCG VIAL IVP SCH (06:20)
[2017-03-15] MEDS: *HR* Morphine 2 MG/ML SYRINGE IVP PRN ×2 (06:40→11:50)
[2017-03-15] MEDS ORDERED: D5% in 0.45% NACL w KCl 10 MEQ/1,000 ML MLS IVC SCH (08:00)
[2017-03-15] MEDS ORDERED: Bisacodyl 10 MG RECTAL SUPPOSITORY RC ONE (08:29)
[2017-03-15] MEDS: Metoclopramide 10 MG in 0.9 % Sodium Chloride 50 ML IVPB SCH ×2 (08:34→15:43)
--- NOTE | 2017-03-15 08:35 | General Surgery Progress Note ---
Addendum entered and electronically signed by Airam Hilario CNP 03/15/17 14:01: Patient tolerated liquids without difficulty and she had a large bowel movement with the dulcolax suppository. May advance diet as tolerated. Surgery will sign off at this time. Thank you for allowing us to participate in the care of this patient. Please call with any further questions/concerns. Original Note: <Airam Hilario - Last Filed: 03/15/17 08:36> Date of Encounter: 03/15/17 Time of Encounter: 08:00 - Assessment and Plan (1) Partial small bowel obstruction Current Visit: No Status: Acute Continue with conservative measures: Patient clinically improved and is passing large amounts of flatus regularly. Denies nausea/vomiting today. States that her appetite is better today. Continue bowel rest for now Patient refused NG tube multiple times yesterday IV fluids 2 View abdominal x-ray this morning Dulcolax suppository now Supportive care Add PPI therapy daily Surgical intervention is not indicated at this time Will follow-up after x-ray to make further recommendations Subjective Patient reports: no new complaints, feels better, still having pain (in pelvis, mid-abdominal pain resolved), pain is less, voiding w/o difficulty, flatus ( large amounts of flatus), no bowel movement, nausea (1 episode last evening but none through the night or today), afebrile Objective Vital Signs - Last 8 Hours Temp Pulse Resp BP Pulse Ox 03/15/17 08:16 98.1 F 72 17 151/83 99 03/15/17 03:10 98.3 F 78 17 173/91 98 Intake and Output 03/14/17 03/15/17 03/15/17 23:59 07:59 15:59 Intake Total 52 / 52 Output Total 700 / 700 Balance -648 / -648 Intake: IV Fluids 52 / 52 Reglan 10 MG In 0.9 % Sodium 52 / 52 Chloride 50 ML @ 104 mls/hr IVPB Q8H [facility] Rx#:[id number] Output: Urine 700 / 700 Other: Weight 83.9 kg Blood Glucose* 103 110 Patient Weight 03/15/17 23:59 Weight 83.9 kg - General physical appearance well developed, well nourished, no distress - Eyes normal ocular movement - ENT dry mucosa, atraumatic, normocephalic - Neck Neck exam: trachea midline - Respiratory normal respiratory effort, clear to auscultation - Cardiovascular Cardiovascular exam: Present: RRR - Abdomen Abdomen: Present: bowel sounds present, soft, non tender - Neurologic CN 2-12 grossly intact - Psychiatric oriented to time, oriented to person, oriented to place, speech is normal, memory intact - Labs 03/15/17 04:35 03/15/17 04:35 Diabetes panel 03/15/17 Range/Units 04:35 Sodium 141 (136-145) mEq/L Potassium 3.5 (3.5-4.5) mEq/L Chloride 106 (98-109) mEq/L Carbon Dioxide 26 (19-29) mEq/L BUN 12 (7-20) mg/dL Creatinine 1.08 (0.57-1.11) mg/dL Glucose 107 H (70-99) mg/dL Calcium 8.8 (8.6-10.8) mg/dL Calcium panel 03/15/17 Range/Units 04:35 Calcium 8.8 (8.6-10.8) mg/dL Pituitary panel 03/15/17 Range/Units 04:35 Sodium 141 (136-145) mEq/L Potassium 3.5 (3.5-4.5) mEq/L Chloride 106 (98-109) mEq/L Carbon Dioxide 26 (19-29) mEq/L BUN 12 (7-20) mg/dL Creatinine 1.08 (0.57-1.11) mg/dL Glucose 107 H (70-99) mg/dL Calcium 8.8 (8.6-10.8) mg/dL Adrenal panel 03/15/17 Range/Units 04:35 Sodium 141 (136-145) mEq/L Potassium 3.5 (3.5-4.5) mEq/L Chloride 106 (98-109) mEq/L Carbon Dioxide 26 (19-29) mEq/L BUN 12 (7-20) mg/dL Creatinine 1.08 (0.57-1.11) mg/dL Glucose 107 H (70-99) mg/dL Calcium 8.8 (8.6-10.8) mg/dL Consult Discharge Plan - Plan Referrals: Mary Puri DO [Primary Care Provider] - (web request sent on 03/14/17) Prescriptions: Docusate [Colace] 100 mg PO BID PRN #30 capsule PRN Reason: Constipation - Attending Attestation For this encounter, I have reviewed the CRM MANAGER or PA documentation, treatment plan, and medical decision making; and I have had face to face time with this patient. <Brenda Abdi Naomi - Last Filed: 03/15/17 16:14> Date of Encounter: 03/15/17 Time of Encounter: 16:00 - Assessment and Plan (1) Nausea and vomiting Current Visit: Yes Status: Resolved Qualifiers: Vomiting type: unspecified Vomiting Intractability: intractable Qualified Code(s): R11.2 - Nausea with vomiting, unspecified (2) Small bowel obstruction Current Visit: Yes Status: Acute SBO seems to have resolved she is passing flatus and has had multiple bm's tolerating clears, would advance diet slowly, fulls today and if tolerates discharge general surgery signing off, please call again if needed (3) Abdominal pain Current Visit: No Status: Resolved resolved Qualifiers: Abdominal location: generalized Qualified Code(s): R10.84 - Generalized abdominal pain (4) Acute sinusitis Current Visit: No Status: Acute continue flonase Qualifiers: Sinusitis location: unspecified location Recurrence: non-recurrent Qualified Code(s): J01.90 - Acute sinusitis, unspecified (5) Hypothyroid Current Visit: Yes Status: Chronic continue synthroid Qualifiers: Hypothyroidism type: unspecified Qualified Code(s): E03.9 - Hypothyroidism , unspecified Subjective Patient reports: no new complaints, feels better, tolerating liquids well, voiding w/o difficulty, flatus, bowel movement, afebrile Objective Vital Signs - Last 8 Hours Temp Pulse Resp BP Pulse Ox 03/15/17 15:51 98.0 F 84 17 151/85 94 03/15/17 11:24 97.4 F L 75 17 151/74 94 03/15/17 08:16 98.1 F 72 17 151/83 99 Intake and Output 03/15/17 03/15/17 03/15/17 07:59 15:59 23:59 Intake Total 532 / 532 Balance 532 / 532 Intake: IV Fluids 52 / 52 Reglan 10 MG In 0.9 % Sodium 52 / 52 Chloride 50 ML @ 104 mls/hr IVPB Q8H [facility] Rx#:[id number] Oral 480 / 480 Other: Meal Lunch Percent of Meal Consumed 95% Stool Size Large Stool Consistency soft Stool Characteristics Normal for Patient Stool Color Brown Weight 83.9 kg Blood Glucose* 110 113 Patient Weight 03/15/17 23:59 Weight 83.9 kg - General physical appearance well developed, well nourished, no distress - Eyes PERRL, normal ocular movement - ENT normal mucosa, normocephalic - Neck Neck exam: trachea midline - Respiratory normal expansion, normal respiratory effort - Cardiovascular Cardiovascular exam: Present: RRR - Abdomen Abdomen: Present: soft, non tender. Absent: distended, tender, guarding, rebound - Integumentary no rash, no growths - Neurologic CN 2-12 grossly intact - Musculoskeletal normal posture - Psychiatric oriented to time, oriented to person, oriented to place, speech is normal, memory intact - Labs 03/15/17 04:35 03/15/17 04:35 Diabetes panel 03/15/17 Range/Units 04:35 Sodium 141 (136-145) mEq/L Potassium 3.5 (3.5-4.5) mEq/L Chloride 106 (98-109) mEq/L Carbon Dioxide 26 (19-29) mEq/L BUN 12 (7-20) mg/dL Creatinine 1.08 (0.57-1.11) mg/dL Glucose 107 H (70-99) mg/dL Calcium 8.8 (8.6-10.8) mg/dL Calcium panel 03/15/17 Range/Units 04:35 Calcium 8.8 (8.6-10.8) mg/dL Pituitary panel 03/15/17 Range/Units 04:35 Sodium 141 (136-145) mEq/L Potassium 3.5 (3.5-4.5) mEq/L Chloride 106 (98-109) mEq/L Carbon Dioxide 26 (19-29) mEq/L BUN 12 (7-20) mg/dL Creatinine 1.08 (0.57-1.11) mg/dL Glucose 107 H (70-99) mg/dL Calcium 8.8 (8.6-10.8) mg/dL Adrenal panel 03/15/17 Range/Units 04:35 Sodium 141 (136-145) mEq/L Potassium 3.5 (3.5-4.5) mEq/L Chloride 106 (98-109) mEq/L Carbon Dioxide 26 (19-29) mEq/L BUN 12 (7-20) mg/dL Creatinine 1.08 (0.57-1.11) mg/dL Glucose 107 H (70-99) mg/dL Calcium 8.8 (8.6-10.8) mg/dL - Imaging Abdominal x-ray: report reviewed - Attending Attestation I have personally performed a face to face evaluation on this patient. I have reviewed and agree with the care plan. History and Exam by me shows:
[2017-03-15] MEDS ORDERED: Pantoprazole 40 MG VIAL IVP SCH (09:15)
[2017-03-15] MEDS: Fluticasone Propionate Nasal 50 MCG/SPRAY BOTTLE NS SCH (09:55)
[2017-03-15] MEDS ORDERED: Acetaminophen 325 MG TABLET PO PRN (12:02)
[2017-03-15 15:52] VITALS: BP 151/85
--- NOTE | 2017-03-15 16:04 | Discharge Summary ---
Date of Encounter: 03/15/17 Time of Encounter: 15:47 - Discharge Diagnosis (1) Partial small bowel obstruction Priority: Primary Status: Resolved (2) Nausea and vomiting Priority: Secondary Status: Resolved Qualifiers: Vomiting type: unspecified Vomiting Intractability: intractable Qualified Code(s): R11.2 - Nausea with vomiting, unspecified (3) HTN (hypertension) Priority: Secondary Status: Chronic Qualifiers: Hypertension type: essential hypertension Qualified Code(s): I10 - Essential (primary) hypertension (4) Diabetes type 2, controlled Priority: Secondary Status: Chronic Qualifiers: Diabetes mellitus complication status: without complication Diabetes mellitus terminal manager insulin use: without terminal manager use Qualified Code(s): E11.9 - Type 2 diabetes mellitus without complications (5) REGINE (acute kidney injury) Priority: Secondary Status: Resolved (6) Abdominal pain Priority: Secondary Status: Resolved Qualifiers: Abdominal location: generalized Qualified Code(s): R10.84 - Generalized abdominal pain - Discharge Medications Prescriptions: Docusate [Colace] 100 mg PO BID PRN #30 capsule PRN Reason: Constipation Home Medications: Pravastatin Sodium [Pravachol] 20 mg PO DAILY 11/28/14 [History] Albuterol Sulfate [Albuterol Inhaler] 2 puff IH Q4HR PRN 01/11/15 [History] Gabapentin [Neurontin] 600 mg PO HS 01/11/15 [History] Meclizine [Antivert] 25 mg PO BID 01/11/15 [History] Melatonin [Melatin] 5 mg PO HS 01/11/15 [History] Montelukast [Singulair] 10 mg PO DAILY 01/11/15 [History] Vitamin B Complex [B Complex] 1 each PO DAILY 01/11/15 [History] Albuterol Neb [Proventil Neb] 2.5 mg IH QID PRN #120 inhsol 06/05/15 [Rx] Acetaminophen [Tylenol] 500 mg PO Q6HR PRN 01/21/17 [History] Colesevelam [Welchol] 1,875 mg PO TID 01/21/17 [History] DiphenhydraMINE [Benadryl] 25 mg PO Q8HR PRN 01/21/17 [History] Doxylamine Succinate [Unisom] 25 mg PO HS PRN 01/21/17 [History] Duloxetine HCl [Cymbalta] 60 mg PO DAILY 01/21/17 [History] Furosemide [Lasix] 20 mg PO DAILY 01/21/17 [History] Labetalol [Trandate] 100 mg PO BID 01/21/17 [History] Lactase [Lactaid] 9,000 unit PO DAILY 01/21/17 [History] Levothyroxine [Synthroid] 88 mcg PO 0630 01/21/17 [History] Loperamide [Imodium] 2 mg PO QID PRN 01/21/17 [History] Loratadine [Allergy Relief] 10 mg PO DAILY 01/21/17 [History] Magnesium Carbonate/Al Hydrox [Gaviscon Es Tablet Chew] 1 tab PO QID 01/21/17 [ History] Metformin HCl [Glucophage] 1,000 mg PO BID 01/21/17 [History] Omeprazole [PriLOSEC] 40 mg PO DAILY 01/21/17 [History] Promethazine [Phenergan] 12.5 - 25 mg PO BID PRN 01/21/17 [History] SUMAtriptan succinate [Imitrex] 50 mg PO Q2H PRN 01/21/17 [History] diazePAM [Valium] 5 mg PO BID PRN #40 tablet 01/26/17 [Rx] Docusate [Colace] 100 mg PO BID PRN #30 capsule 03/15/17 [Rx] Allergies/Adverse Reactions: 3 Allergy/AdvReac Type Severity Reaction Status Date / Time aspirin Allergy Anaphylaxis Verified 01/21/17 07:05 Buspirone [From BuSpar] Allergy Rash Verified 01/21/17 07:05 caffeine Allergy Anaphylaxis Verified 01/21/17 07:05 chlorpromazine Allergy Itching Verified 01/21/17 07:05 [From Thorazine] codeine Allergy Itching Verified 01/21/17 07:05 lorazepam [From Ativan] Allergy Hives Verified 01/21/17 07:05 prochlorperazine Allergy Hives Verified 01/21/17 07:05 [From Compazine] propoxyphene [From Darvon] AdvReac Abdominal Verified 03/15/17 12:18 Pain tramadol AdvReac Nausea Verified 03/15/17 12:18 Date of admission: 03/14/17 01:33 Primary care physician: Mary Puri DO Consults: 03/14/17 03:06 Consult to Nutrition [CONS] Routine Comment: Consulting Provider: NUTRITION Reason for Dietary Consult: MST Score Other:: NPO/SBO Consult to Detacker [CONS] Routine Reason for SW Consult: HAS HOME O2 3LPM AT HS AND PRN. O2 FROM [facility] Discharging clinician: Ingrid Bernardo Anticipated date of discharge: 03/15/17 - Patient Status Disposition: Home, Self-Care Condition: Good Functional capacity at discharge: independent ambulation Overall status at discharge: patient is progressing back to baseline - Discharge Instructions Follow Up With: Mary Puri DO [Primary Care Provider] - (web request sent on 03/14/17) - Diet and Activity Activity: increase activity as tolerated Diet: diabetic diet, low fat, low cholesterol, low salt diet Hospital course: Ms. Michelle is a 66 year old female patient with a history of complicated surgical repair for pelvic organ prolapse that was complicated by dense adhesions and enterotomy for which small bowel resection with primary anastomosis was also done who presented to the ER with complaints of intractable nausea and vomiting. CT scan of the abdomen and pelvis showed presence of dilated small bowel loops with transition point concerning for small bowel obstruction. As such patient was hospitalized at surgery was consulted. Surgery recommended placement of nasogastric daily. However patient did not tolerate this at all. As she was just managed conservatively with IV fluids and symptomatic treatment. This morning patient is doing much better. She did have a bowel movement and x-ray of the abdomen reveals no more dilated loops. As such she has been started on diet which she is tolerating well. Her abdominal pain has resolved and she has been cleared for discharge by surgery. - Time Spent with Patient Total time spent providing and/or coordinating discharge services: Greater than 30 minutes (32 min) - Constitutional Vitals: Temp Pulse Resp BP Pulse Ox 97.4 F L 75 17 151/74 94 03/15/17 11:24 03/15/17 11:24 03/15/17 11:24 03/15/17 11:24 03/15/17 11:24 General appearance: Present: A&O X 3, no acute distress, answers questions appropriately - Neck Neck exam general surgery: Present: supple, trachea midline. Absent: lymphadenopathy - Respiratory Respiratory exam: Present: CTAB. Absent: accessory muscle use, rales, rhonchi, wheezes - Cardiovascular Cardiovascular exam: Present: RRR, +S1, +S2. Absent: diastolic murmur, gallop, rubs, systolic murmur - GI/Abdominal GI/Abdominal exam: Present: normal bowel sounds, soft, no peritoneal signs. Absent: distended, tenderness - Extremities Exam Extremities exam: Present: warm, radial pulses palpable and symmetrical. Absent : calf tenderness, cyanotic, pedal edema - Neurological Exam Neurological exam: Present: alert, CN II-XII intact, oriented X3, no focal deficits. Absent: facial droop, speech deficit
[2017-03-15] MEDS ORDERED: Insulin LISPRO 300 UNITS/3 ML VIAL SQ SCH ×2 (16:30→21:00)
== END 2017-03-15 17:17 | disposition home or self-care (01) | DRG 247 ==
LOC: EMEROO 23:06 → 2ANU 03-14 01:33 → SUATTDRO 03-14 01:33 → 2ANU 03-14 01:40
PROVIDERS: ADMIT Internal Medicine Hematology & Oncology; ATTEND Internal Medicine

== ENCOUNTER 2017-07-01 15:25 | Inpatient (IN) ==
--- NOTE | 2017-07-01 15:58 | Emergency Department Note ---
Disposition Clinical Impression: Knee fracture Concussion with loss of consciousness Qualifiers: Encounter type: initial encounter Qualified Code(s): S06.0X9A - Concussion with loss of consciousness of unspecified duration, initial encounter Hematoma of frontal scalp Qualifiers: Encounter type: initial encounter Qualified Code(s): S00.03XA - Contusion of scalp, initial encounter Nasal laceration Qualifiers: Encounter type: initial encounter Qualified Code(s): S01.21XA - Laceration without foreign body of nose, initial encounter Fall Qualifiers: Encounter type: initial encounter Qualified Code(s): W19.XXXA - Unspecified fall, initial encounter Disposition: Admitted As Inpatient Condition: Fair Time of Disposition: 19:54 General Adult HPI - General Chief complaint: ED Fall Stated complaint: fall, face laceration Time Seen by Provider: 07/01/17 15:30 Source: EMS Mode of arrival: EMS Limitations: no limitations Nursing Notes Reviewed: Yes Vital Signs Reviewed: Yes - History of Present Illness HPI Narrative: Patient is a 66-year-old female presenting to the emergency Department by squad for a mechanical fall that occurred at [facility]. The patient states that she was walking out of [facility] and tripped forward over a rug falling onto the right side of her face and injuring her right rib cage and right knee. She states that she may have lost consciousness. She states she stayed down after falling she did not want anyone to help her get up except for the EMS. States that she did have difficulty walking on her right knee. Denies being on blood thinners. States that she really has pain at the areas of injury, however she has no other complaints at this time such as vision changes, hearing changes, focal weaknesses or numbness or tingling. Pain Scale: 10 - Related Data Home Medications Medication Instructions Recorded Confirmed Pravastatin Sodium [Pravachol] 20 mg PO DAILY 11/28/14 07/01/17 Albuterol Sulfate [Albuterol 2 puff IH Q4HR PRN 01/11/15 07/01/17 Inhaler] Gabapentin [Neurontin] 600 mg PO HS 01/11/15 07/01/17 Meclizine [Antivert] 25 mg PO BID 01/11/15 07/01/17 Montelukast [Singulair] 10 mg PO DAILY 01/11/15 07/01/17 Vitamin B Complex [B Complex] 1 each PO DAILY 01/11/15 07/01/17 Acetaminophen [Tylenol] 500 mg PO Q6HR PRN 01/21/17 07/01/17 Colesevelam [Welchol] 1,875 mg PO TID 01/21/17 07/01/17 DiphenhydraMINE [Benadryl] 25 mg PO Q8HR PRN 01/21/17 07/01/17 Duloxetine HCl [Cymbalta] 60 mg PO DAILY 01/21/17 07/01/17 Furosemide [Lasix] 20 mg PO DAILY PRN 01/21/17 07/01/17 Labetalol [Trandate] 100 mg PO BID 01/21/17 07/01/17 Lactase [Lactaid] 9,000 unit PO DAILY PRN 01/21/17 07/01/17 Levothyroxine [Synthroid] 88 mcg PO 0630 01/21/17 07/01/17 Loperamide [Imodium] 2 mg PO QID PRN 01/21/17 07/01/17 Loratadine [Allergy Relief] 10 mg PO DAILY 01/21/17 07/01/17 Metformin HCl [Glucophage] 1,000 mg PO BID 01/21/17 07/01/17 Omeprazole [PriLOSEC] 40 mg PO DAILY 01/21/17 07/01/17 Promethazine [Phenergan] 12.5 - 25 mg PO BID PRN 01/21/17 07/01/17 SUMAtriptan succinate [Imitrex] 50 mg PO Q2H PRN 01/21/17 07/01/17 BuPROPion XL (24 HR) [Wellbutrin 150 mg PO DAILY 07/01/17 07/01/17 XL] Melatonin 10 mg PO HS 07/01/17 07/01/17 Oxycodone HCl/Acetaminophen 1 tab PO QID 07/01/17 07/01/17 [Percocet 7.5-325 mg Tablet] clonazePAM [Klonopin] 0.5 mg PO BID PRN 07/01/17 07/01/17 Previous Rx's Medication Instructions Recorded Albuterol Neb [Proventil Neb] 2.5 mg IH QID PRN #120 inhsol 06/05/15 Docusate [Colace] 100 mg PO BID PRN #30 capsule 03/15/17 Benzonatate [Tessalon] 200 mg PO TID PRN #30 capsule 04/09/17 Allergies Allergy/AdvReac Type Severity Reaction Status Date / Time aspirin Allergy Anaphylaxis Verified 07/01/17 15:37 Buspirone [From BuSpar] Allergy Rash Verified 07/01/17 15:37 caffeine Allergy Anaphylaxis Verified 07/01/17 15:37 chlorpromazine Allergy Itching Verified 07/01/17 15:37 [From Thorazine] codeine Allergy Itching Verified 07/01/17 15:37 lorazepam [From Ativan] Allergy Hives Verified 07/01/17 15:37 prochlorperazine Allergy Hives Verified 07/01/17 15:37 [From Compazine] propoxyphene [From Darvon] AdvReac Abdominal Verified 07/01/17 15:37 Pain tramadol AdvReac Nausea Verified 07/01/17 15:37 All systems ED: reviewed and negative except as stated. Review of Systems: As Per HPI Eyes: Denies: eye pain, vision change ENT ED: Denies: throat pain, dental pain Cardiovascular: Reports: syncope. Denies: chest pain Respiratory: Denies: cough, dyspnea Gastrointestinal: Denies: abdominal pain, nausea, vomiting, diarrhea Genitourinary: Denies: urgency, dysuria, frequency Musculoskeletal: Reports: neck pain. Denies: back pain Integumentary: Reports: abrasion Neurological: Reports: headache (right frontal region - hematoma) Past Medical History - Past Medical History Attestation: Yes The following information was validated with the patient. 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 Patient vitals are WNL at this time. HEAD:. No allen sign, raccoon eyes or evidence of CSF drainage. Patient does have a right frontal hematoma that is 2 x 2 centimeters in diameter. There is no bony crepitance in the surrounding area. EYES: PERRL, EOMI, no scleral icterus EARS: No hemotympanum or TM rupture, no otorrhea NECK: No tracheal deviation, JVD, or hematoma. Palpation of the posterior cervical spine reveals no tenderness NOSE: The nose is normal without rhinorrhea, epistaxis, or septal hematoma. Patient does have a 1 cm superficial laceration across the bridge of her nose. MOUTH: Normal with intact dentition. CHEST: Chest wall tenderness with palpation across the right anterior chest wall below the mammillary crease. RESP: Normal chest excursion with respiration, no paradoxical motion, subcutaneous emphysema. The breath sounds are clear and equal bilaterally CARD: Regular rhythm, without murmurs, rub or gallop ABD: No distention, ecchymosis, abrasions. Non-tender, soft, without rigidity , rebound or guarding PELVIS: No laxity or tenderness with palpation or compression EXT: Patient has an area of ecchymosis over her distal right quadricep, and over her proximal tibia anteriorly. She also has tenderness with palpation to these regions. Her knee still has range of motion. There is no laxity in the ligaments. Negative anterior and posterior drawer sign. No valgus or varus excessively. Patient has good sensation in the extremity. No obvious deformity. Patient does complain of pain radiating into her right hip. Pulses 2+ in 4 extremities SKIN: Normal for age and race; warm and dry; no apparent lesions, not pale or diaphoretic - General Limitations: no limitations General appearance: alert, in no apparent distress Course Course Narrative: Plan at this time is to obtain imaging of all the areas of injury including her head, neck, chest, hips, and right knee. Patient has a c-collar in place. She is AOx4 at this time and in no distress. - Reevaluation(s) Reevaluation #1: Patient's c-collar was removed due to CT of the cervical spine being negative. Patient was has full range of motion of neck. 2 absorbable 5-0 sutures were placed in the laceration of her nasal bridge. Patient tolerated this procedure well. I discussed the patient's case with the orthopedist senior insight manager international Dr. Rodriguez requested that we order a CT of the patient's knee as well as place a knee immobilizer. Admitted the patient to the hospitalist on-call Dr. Amezquita he agrees to accept the patient. Time: 19:53 Vital Signs Temperature 97.9 F 07/01/17 15:31 Pulse Rate 77 07/01/17 15:31 Respiratory Rate 18 07/01/17 15:31 Blood Pressure 122/74 07/01/17 15:31 O2 Sat by Pulse Oximetry 93 07/01/17 15:31 Temperature 97.9 F 07/01/17 15:31 Pulse Rate 72 07/01/17 16:00 Respiratory Rate 18 07/01/17 16:00 Blood Pressure 123/66 07/01/17 16:00 O2 Sat by Pulse Oximetry 92 07/01/17 16:00 Oxygen Delivery Oxygen Delivery Room Air Procedures - Laceration Laceration 1 Site: face Size (cm): 1 (cm) Description: linear Depth: simple, single layer Local Anesthetic: lidocaine 1%, with epi Pre-repair: wound explored Skin layer closed with: vicryl Size: 5-0 Number of sutures/charley: 2 Technique: simple, interrupted Medical Decision Making - Medical Records Medical records reviewed: Yes I reviewed the patient's medical records. - Lab Data Lab results reviewed: Yes I reviewed the patient's lab results. - Radiology Data Radiology results reviewed: Yes I reviewed the patient's radiology results. Cervical Spine CT 07/01/17 15:51 IMPRESSION: No acute abnormality of the cervical spine. D/ / 07/01/2017 17:14:23 Yosef Rendon MD / luisa Interpreting Provider: Yosef Rendon MD Chest X-Ray 07/01/17 15:51 IMPRESSION: 1. No acute abnormality. D/ / Nicolás Shay MD / Nicolás Shay MD Interpreting Provider: Nicolás Shay MD Face CT 07/01/17 15:51 IMPRESSION: No acute intracranial abnormality. Right forehead contusion and subcutaneous hematoma. Focal laceration left nasal bridge. A tiny curvilinear calcific density is seen medial right orbit axial image 102 measuring thickness about 1 mm x 3 mm length. This could reflect retained foreign body or benign calcified density. . Nondisplaced fractures bilateral nasal bones. D/ / Cruz Barker / Cruz Barker Interpreting Provider: Cruz Barker Head CT 07/01/17 15:51 IMPRESSION: No acute intracranial abnormality. Right forehead contusion and subcutaneous hematoma. Focal laceration left nasal bridge. A tiny curvilinear calcific density is seen medial right orbit axial image 102 measuring thickness about 1 mm x 3 mm length. This could reflect retained foreign body or benign calcified density. . Nondisplaced fractures bilateral nasal bones. D/ / Cruz Barker / Cruz Barker Interpreting Provider: Cruz Barker Hip/Pelvis X-Ray 07/01/17 15:51 IMPRESSION: 1. Right knee: New irregularity involving the articular surface of the lateral femoral condyle, which appears new when compared to the previous exam, and may represent insufficiency fracture, especially given the degree of demineralization. That could be better evaluated with MRI. 2. Bilateral hips: Bilateral osteoarthrosis, greater on the right, with exuberant osteophytosis and enthesopathy. No acute abnormality detected. D/ / Walker Foster MD / Walker Foster MD Interpreting Provider: Walker Foster MD Knee X-Ray 07/01/17 16:02 IMPRESSION: 1. Right knee: New irregularity involving the articular surface of the lateral femoral condyle, which appears new when compared to the previous exam, and may represent insufficiency fracture, especially given the degree of demineralization. That could be better evaluated with MRI. 2. Bilateral hips: Bilateral osteoarthrosis, greater on the right, with exuberant osteophytosis and enthesopathy. No acute abnormality detected. D/ / Walker Foster MD / Walker Foster MD Interpreting Provider: Walker Foster MD - EKG Data EKG #1 EKG attestation: Yes I reviewed and interpreted this EKG. EKG results narrative: EKG done at 15:47 shows sinus rhythm at a rate of 74 bpm. Normal axis. AL is 147, QRS is 15, QT is 4 and 8 and QTc is 436 these are within normal limits. No signs of ST elevation, ST depression or Q waves present. This is unchanged when compared EKG done 11/30/2016.
[2017-07-01] MEDS ORDERED: Tdap (Boostrix) Vaccine 0.5 ML SYRINGE IM ONE (15:59)
--- NOTE | 2017-07-01 16:59 | Emergency Department Note ---
Disposition Clinical Impression: Concussion with loss of consciousness Qualifiers: Encounter type: initial encounter Qualified Code(s): S06.0X9A - Concussion with loss of consciousness of unspecified duration, initial encounter Disposition: Home, Self-Care Referrals: Mary Puri DO [Primary Care Provider] - Forms: ED Satisfaction Letter General Adult HPI - General Chief complaint: ED Fall Stated complaint: fall, face laceration Time Seen by Provider: 07/01/17 15:30 Source: EMS Mode of arrival: EMS Limitations: no limitations - History of Present Illness Pain Scale: 10 - Related Data Home Medications Medication Instructions Recorded Confirmed Pravastatin Sodium [Pravachol] 20 mg PO DAILY 11/28/14 03/14/17 Albuterol Sulfate [Albuterol 2 puff IH Q4HR PRN 01/11/15 03/14/17 Inhaler] Gabapentin [Neurontin] 600 mg PO HS 01/11/15 03/14/17 Meclizine [Antivert] 25 mg PO BID 01/11/15 03/14/17 Melatonin [Melatin] 5 mg PO HS 01/11/15 03/14/17 Montelukast [Singulair] 10 mg PO DAILY 01/11/15 03/14/17 Vitamin B Complex [B Complex] 1 each PO DAILY 01/11/15 03/14/17 Acetaminophen [Tylenol] 500 mg PO Q6HR PRN 01/21/17 03/14/17 Colesevelam [Welchol] 1,875 mg PO TID 01/21/17 03/14/17 DiphenhydraMINE [Benadryl] 25 mg PO Q8HR PRN 01/21/17 03/14/17 Doxylamine Succinate [Unisom] 25 mg PO HS PRN 01/21/17 03/14/17 Duloxetine HCl [Cymbalta] 60 mg PO DAILY 01/21/17 03/14/17 Furosemide [Lasix] 20 mg PO DAILY 01/21/17 03/14/17 Labetalol [Trandate] 100 mg PO BID 01/21/17 03/14/17 Lactase [Lactaid] 9,000 unit PO DAILY 01/21/17 03/14/17 Levothyroxine [Synthroid] 88 mcg PO 0630 01/21/17 03/14/17 Loperamide [Imodium] 2 mg PO QID PRN 01/21/17 03/14/17 Loratadine [Allergy Relief] 10 mg PO DAILY 01/21/17 03/14/17 Magnesium Carbonate/Al Hydrox 1 tab PO QID 01/21/17 03/14/17 [Gaviscon Es Tablet Chew] Metformin HCl [Glucophage] 1,000 mg PO BID 01/21/17 03/14/17 Omeprazole [PriLOSEC] 40 mg PO DAILY 01/21/17 03/14/17 Promethazine [Phenergan] 12.5 - 25 mg PO BID PRN 01/21/17 03/14/17 SUMAtriptan succinate [Imitrex] 50 mg PO Q2H PRN 01/21/17 03/14/17 Previous Rx's Medication Instructions Recorded Albuterol Neb [Proventil Neb] 2.5 mg IH QID PRN #120 inhsol 06/05/15 diazePAM [Valium] 5 mg PO BID PRN #40 tablet 01/26/17 Docusate [Colace] 100 mg PO BID PRN #30 capsule 03/15/17 Benzonatate [Tessalon] 200 mg PO TID PRN #30 capsule 04/09/17 GuaiFENesin ER [Mucinex] 1,200 mg PO BID #20 tbbp.12hr 04/09/17 cephALEXin [Keflex] 500 mg PO QID #40 capsule 04/09/17 Allergies Allergy/AdvReac Type Severity Reaction Status Date / Time aspirin Allergy Anaphylaxis Verified 07/01/17 15:37 Buspirone [From BuSpar] Allergy Rash Verified 07/01/17 15:37 caffeine Allergy Anaphylaxis Verified 07/01/17 15:37 chlorpromazine Allergy Itching Verified 07/01/17 15:37 [From Thorazine] codeine Allergy Itching Verified 07/01/17 15:37 lorazepam [From Ativan] Allergy Hives Verified 07/01/17 15:37 prochlorperazine Allergy Hives Verified 07/01/17 15:37 [From Compazine] propoxyphene [From Darvon] AdvReac Abdominal Verified 07/01/17 15:37 Pain tramadol AdvReac Nausea Verified 07/01/17 15:37 Eyes: Denies: eye pain, vision change ENT ED: Denies: throat pain, dental pain Cardiovascular: Reports: syncope. Denies: chest pain Respiratory: Denies: cough, dyspnea Gastrointestinal: Denies: abdominal pain, nausea, vomiting, diarrhea Genitourinary: Denies: urgency, dysuria, frequency Musculoskeletal: Reports: neck pain. 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 We had independent face-to- face examination and discussion. The patient was seen with the emergency medicine resident Dr. Pavan Magdaleno I examined this patient and my medical decision-making was reviewed with the Resident Physician/DIRECTOR OF MATERNITY SERVICES/PA. I agree with the documented findings, disposition and treatment plan as described except to the extent set forth below. Briefly: 66-year-old female by EMS trip and fall while walking tripped on carpet hit her face and forehead small laceration to the nasal bridge with bleeding controlled crushable loss of consciousness. Patient is not on anticoagulants. Tetanus needs to be boosted. Patient also has hip pain and knee pain x-rays of the hip and knee and chest are being ordered CT of the head and C-spine with facial reconstruction are being ordered as well she has ecchymosis on the left forehead and the left zygomatic arch. Disposition pending. Time: 16:58 Vital Signs Temperature 97.9 F 07/01/17 15:31 Pulse Rate 77 07/01/17 15:31 Respiratory Rate 18 07/01/17 15:31 Blood Pressure 122/74 07/01/17 15:31 O2 Sat by Pulse Oximetry 93 07/01/17 15:31 Temperature 97.9 F 07/01/17 15:31 Pulse Rate 72 07/01/17 16:00 Respiratory Rate 18 07/01/17 16:00 Blood Pressure 123/66 07/01/17 16:00 O2 Sat by Pulse Oximetry 92 07/01/17 16:00 Oxygen Delivery Oxygen Delivery Room Air
[2017-07-01] MEDS ORDERED: *HR* OxyCODONE/APAP 7.5/325 TABLET PO STA (20:01)
[2017-07-01 20:09] LABS: Basophils % 0.3 %; Eosinophils # 0.3 K/mcL (0.0-0.6); Eosinophils % 3.5 %; Hematocrit 31.8 % (35.3-44.9); Hemoglobin 9.6 g/dL (11.5-15.4); Immature Granulocytes % 0.5 % (0-4); Lymphocytes # 1.8 K/mcL (0.6-4.6); Lymphocytes % 19.1 %; Mean Corpuscular HGB Conc 30.2 g/dL (31.6-35.5); Mean Corpuscular Hemoglobin 26.7 pg (28.0-33.3); Mean Corpuscular Volume 88.3 fL (83.0-100.0); Mean Platelet Volume 9.3 fL (9.4-12.4); Monocytes # 0.5 K/mcL (0.0-1.3); Monocytes % 5.1 %; Neutrophils # 6.8 K/mcL (1.6-8.9); Platelet Count 277 K/mcL (140-400); Red Cell Distribution Width 14.9 % (11.5-14.5); Segmented Neutrophils % 71.5 %
[2017-07-01] MEDS ORDERED: Naloxone 0.4 MG/ML INJ IVP PRN (20:18)
[2017-07-01] MEDS ORDERED: Acetaminophen 325 MG TABLET PO PRN (20:18)
--- NOTE | 2017-07-01 20:18 | Internal Med History&Physical ---
Date of Encounter: 07/01/17 Time of Encounter: 20:12 Assessment and Plan (1) Knee fracture, right Current visit: Yes Status: Acute Admit to hospitalist. Consult orthopedics. Pain control. Knee brace. Follow- up on CT of any requested by orthopedics. Nothing by mouth after midnight. PTOT. (2) Nasal laceration Current visit: Yes Status: Acute Status post suturing in the ED. Continue to monitor. Qualifiers: Encounter type: initial encounter Qualified Code(s): S01.21XA - Laceration without foreign body of nose, initial encounter (3) REGINE (acute kidney injury) Current visit: Yes Status: Acute We will start gentle hydration. Follow-up on labs in the morning. Avoid nephrotoxins. (4) Diabetes mellitus Current visit: Yes Status: Acute Continue insulin sliding scale. Continue Accu-Cheks. Diabetic diet. 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 Blood pressure stable. Qualifiers: Hypertension type: essential hypertension Qualified Code(s): I10 - Essential (primary) hypertension (6) Hypothyroid Current visit: No Status: Chronic Continue home thyroid supplementations. Qualifiers: Hypothyroidism type: unspecified Qualified Code(s): E03.9 - Hypothyroidism , unspecified (7) DVT prophylaxis Current visit: No Status: Acute Heparin subcutaneous Internal Medicine - H&P: HPI Chief complaint: Fall Admitted From: Emergency Dept Plans for Post Hospital Care: Home History of present illness: Ms. Michelle is a 66 year old female known PMH of COPD, HTN, HLD, DM2, Fibromyalgia who presents after a mechanical fall at [place] tripping over a rug. Unclear if she really had LOC. She presented to the ED and vitals were stable. Imaging workup in the ED showed a fracture of the right lateral femoral condyle. For that orthopedics were consulted in the ED and recommended a knee brace and a CT of the knee and they will see the patient in the morning. Other imaging studies including a CT head showed a right foot contusion and subcutaneous hematoma and laceration of the left nasal bridge. There was nondisplaced fractures of the bilateral nasal bones. There was a mention of a tiny curvilinear calcific density seen in the medial right orbit measuring sickness about 1 mm x 3 mm in length. According to the report this could have been a retained foreign body or benign calcific density. The patient denies any fever, chills, nausea, vomiting, blurry vision, headache, chest pain, shortness of breath, abdominal pain, urinary symptoms, or neurological symptoms. Her pain is well-controlled with Percocet she received in the ED Past Med Surg Social Fam HX - Past Medical History Medical history: arthritis, asthma, cardiomyopathy, COPD, diabetes, fibromyalgia , hypertension, renal disease, other Psychiatric history: anxiety, depression - Past Surgical History Surgical History: other (sinus surgery, lysis of adhesions and small bowel resection) - Social History Smoking Status: Never smoker Smokeless Tobacco Status: No Alcohol use: none Drug use: none - Family History Mother Adopted: No Family Member Ethnicity: Non- Living Status: Hx Family Cardiac Disorders: Yes Hx Family Respiratory Disorders: Yes Hx Family Cancer: No Hx Family GI Disorders: Yes Hx Family Endocrine Disorder: No Hx Family Neuromuscular Disorders: No Hx Family Neurologic Disorders: No Hx Family HEENT Disorders: No Hx Family Autoimmune Disorders: No Internal Medicine - H&P: Meds Pravastatin Sodium [Pravachol] 20 mg PO DAILY 11/28/14 [History] Albuterol Sulfate [Albuterol Inhaler] 2 puff IH Q4HR PRN 01/11/15 [History] Gabapentin [Neurontin] 600 mg PO HS 01/11/15 [History] Meclizine [Antivert] 25 mg PO BID 01/11/15 [History] Montelukast [Singulair] 10 mg PO DAILY 01/11/15 [History] Vitamin B Complex [B Complex] 1 each PO DAILY 01/11/15 [History] Albuterol Neb [Proventil Neb] 2.5 mg IH QID PRN #120 inhsol 06/05/15 [Rx] Acetaminophen [Tylenol] 500 mg PO Q6HR PRN 01/21/17 [History] Colesevelam [Welchol] 1,875 mg PO TID 01/21/17 [History] DiphenhydraMINE [Benadryl] 25 mg PO Q8HR PRN 01/21/17 [History] Duloxetine HCl [Cymbalta] 60 mg PO DAILY 01/21/17 [History] Furosemide [Lasix] 20 mg PO DAILY PRN 01/21/17 [History] Labetalol [Trandate] 100 mg PO BID 01/21/17 [History] Lactase [Lactaid] 9,000 unit PO DAILY PRN 01/21/17 [History] Levothyroxine [Synthroid] 88 mcg PO 0630 01/21/17 [History] Loperamide [Imodium] 2 mg PO QID PRN 01/21/17 [History] Loratadine [Allergy Relief] 10 mg PO DAILY 01/21/17 [History] Metformin HCl [Glucophage] 1,000 mg PO BID 01/21/17 [History] Omeprazole [PriLOSEC] 40 mg PO DAILY 01/21/17 [History] Promethazine [Phenergan] 12.5 - 25 mg PO BID PRN 01/21/17 [History] SUMAtriptan succinate [Imitrex] 50 mg PO Q2H PRN 01/21/17 [History] Docusate [Colace] 100 mg PO BID PRN #30 capsule 03/15/17 [Rx] Benzonatate [Tessalon] 200 mg PO TID PRN #30 capsule 04/09/17 [Rx] BuPROPion XL (24 HR) [Wellbutrin XL] 150 mg PO DAILY 07/01/17 [History] Melatonin 10 mg PO HS 07/01/17 [History] Oxycodone HCl/Acetaminophen [Percocet 7.5-325 mg Tablet] 1 tab PO QID 07/01/17 [ History] clonazePAM [Klonopin] 0.5 mg PO BID PRN 07/01/17 [History] 3 Allergy/AdvReac Type Severity Reaction Status Date / Time aspirin Allergy Anaphylaxis Verified 07/01/17 15:37 Buspirone [From BuSpar] Allergy Rash Verified 07/01/17 15:37 caffeine Allergy Anaphylaxis Verified 07/01/17 15:37 chlorpromazine Allergy Itching Verified 07/01/17 15:37 [From Thorazine] codeine Allergy Itching Verified 07/01/17 15:37 lorazepam [From Ativan] Allergy Hives Verified 07/01/17 15:37 prochlorperazine Allergy Hives Verified 07/01/17 15:37 [From Compazine] propoxyphene [From Darvon] AdvReac Abdominal Verified 07/01/17 15:37 Pain tramadol AdvReac Nausea Verified 07/01/17 15:37 All Systems PM: A 10-system review of systems was performed and is negative for pertinent findings except as documented above in the HPI. Review of systems: All systems reviewed are negative except for as mentioned above - Constitutional Vitals: Temp Pulse Resp BP Pulse Ox 97.9 F 72 18 123/66 92 07/01/17 15:31 07/01/17 16:00 07/01/17 16:00 07/01/17 16:00 07/01/17 16:00 Exam: GEN: NAD, nasal laceration noted. HEENT: AT, NC, No cyanosis, oral mucosa is moist, No JVD Lymphatics: No lymphadenoapthy Eyes: Extrocular muscles intact, anicteric CVS:RRR. S1, S2, No m/r/g RESP: CTAB ABD: Soft, NT, ND, +BS EXT: No edema, No rashes, 2+ DP NEURO: Nonfocal, CN II-XII intact, No focal motor or sensory deficits Psych: Cooperative, Not anxious or depressed Internal Med - H&P Results - Labs CBC & Chem 7: 07/01/17 19:42 07/01/17 19:42
[2017-07-01 20:20] LABS: Albumin 4.3 g/dL (3.5-5.7); Albumin/Globulin Ratio 1.2 (1.1-2.2); Bilirubin,Total 0.3 mg/dL (0.3-1.0); Calcium 9.4 mg/dL (8.6-10.3); Globulin 3.5 g/dL (2.4-3.5); Potassium 4.1 mEq/L (3.5-5.1); Total Protein 7.8 g/dL (6.4-8.9)
[2017-07-01] MEDS ORDERED: Furosemide 20 MG TABLET PO PRN (20:20)
[2017-07-01] MEDS ORDERED: D5% in Water 1,000 ML IVC PRN (20:22)
[2017-07-01] MEDS ORDERED: Dextrose Gel 15 GM/37.5 ML TUBE PO PRN ×2 (20:22)
[2017-07-01] MEDS ORDERED: *HR* Dextrose 50 % in Water (Syg) 50 ML SYRINGE IVP PRN (20:22)
[2017-07-01 20:25] LABS: Activated Partial Thrombo Time 27.8 Seconds (26.0-36.0)
[2017-07-01] MEDS: *HR* Heparin 5,000 UNIT/ML VIAL SQ SCH (23:00)
[2017-07-01] MEDS: *HR* HYDROcodone/Acet 5/325 mg TABLET PO PRN (23:01)
[2017-07-01] MEDS: Gabapentin 300 MG CAPSULE PO SCH (23:01)
[2017-07-01] MEDS: Melatonin 3 MG TABLET PO SCH (23:01)
[2017-07-01] MEDS: 0.9 % Sodium Chloride 1,000 ML IVC SCH (23:02)
[2017-07-01] MEDS: Insulin LISPRO 300 UNITS/3 ML VIAL SQ SCH (23:11)
[2017-07-02] MEDS: SUMAtriptan succinate 50 MG TABLET PO PRN ×2 (02:07→12:54)
[2017-07-02] MEDS: *HR* Heparin 5,000 UNIT/ML VIAL SQ SCH ×3 (04:37→20:41)
[2017-07-02] MEDS: *HR* HYDROcodone/Acet 5/325 mg TABLET PO PRN ×3 (05:00→18:57)
[2017-07-02 05:36] LABS: Basophils % 0.3 %; Eosinophils # 0.3 K/mcL (0.0-0.6); Eosinophils % 3.9 %; Hematocrit 31.3 % (35.3-44.9); Hemoglobin 9.5 g/dL (11.5-15.4); Immature Granulocytes % 0.4 % (0-4); Lymphocytes % 25.1 %; Mean Corpuscular HGB Conc 30.4 g/dL (31.6-35.5); Mean Corpuscular Hemoglobin 26.8 pg (28.0-33.3); Mean Corpuscular Volume 88.2 fL (83.0-100.0); Mean Platelet Volume 9.2 fL (9.4-12.4); Monocytes # 0.5 K/mcL (0.0-1.3); Monocytes % 5.7 %; Neutrophils # 5.2 K/mcL (1.6-8.9); Platelet Count 275 K/mcL (140-400); Red Blood Count 3.55 M/mcL (3.82-4.97); Red Cell Distribution Width 14.8 % (11.5-14.5); Segmented Neutrophils % 64.6 %
[2017-07-02 05:53] LABS: Calcium 9.5 mg/dL (8.6-10.3); Magnesium 1.9 mg/dL (1.6-2.6); Potassium 4.4 mEq/L (3.5-5.1)
[2017-07-02] MEDS: Vitamin B Complex/Vit C/Vit E 1 EACH TABLET PO SCH (08:20)
[2017-07-02] MEDS: BuPROPion XL (24 HR) 150 MG TABLET PO SCH (08:20)
[2017-07-02] MEDS: Loratadine 10 MG TABLET PO SCH (08:20)
[2017-07-02] MEDS: 0.9 % Sodium Chloride 1,000 ML IVC SCH (11:53)
--- NOTE | 2017-07-02 14:53 | Internal Med Progress Note ---
Date of Encounter: 07/02/17 Time of Encounter: 09:50 - Assessment and plan (1) Knee fracture, right Current Visit: Yes Status: Acute Assessment and plan: Right knee nondisplaced lateral patella fracture with moderate knee effusion. Orthopedics consulted. We will follow recommendations. Pain control. We will add sublingual oxycodone to her pain medication regimen. Moderate risk for complications. (2) Nasal laceration Current Visit: Yes Status: Acute Assessment and plan: Patient has ecchymosis on her face. Awaiting results of CT scan of the facial bones. Qualifiers: Encounter type: initial encounter Qualified Code(s): S01.21XA - Laceration without foreign body of nose, initial encounter (3) REGINE (acute kidney injury) Current Visit: Yes Status: Acute Assessment and plan: Creatinine 1.42. Improved. Continue IV hydration (4) HTN (hypertension) Current Visit: Yes Status: Chronic Assessment and plan: Controlled at this time. Continue antihypertensive regimen Qualifiers: Hypertension type: essential hypertension Qualified Code(s): I10 - Essential (primary) hypertension (5) Hypothyroid Current Visit: Yes Status: Chronic Assessment and plan: Continue levothyroxine Qualifiers: Hypothyroidism type: unspecified Qualified Code(s): E03.9 - Hypothyroidism , unspecified (6) Diabetes mellitus Current Visit: Yes Status: Chronic Assessment and plan: Well-controlled. Patient is nothing by mouth at this time. Continue to monitor blood sugars. 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 Improves for about an hour after she received pain medications but returned soon after. Awaiting evaluation by orthopedics. Underwent CT scan of the facial bones earlier this morning. - Constitutional Vitals: Temp Pulse Resp BP Pulse Ox 98.3 F 71 16 134/81 97 07/02/17 12:32 07/02/17 12:32 07/02/17 12:32 07/02/17 12:32 07/02/17 12:32 Internal Medicine: Result - Labs CBC & Chem 7: 07/02/17 04:45 07/02/17 04:45 Labs: Short CBC 07/02/17 Range/Units 04:45 WBC 8.0 (4.3-11.1) K/mcL Hgb 9.5 L (11.5-15.4) g/dL Hct 31.3 L (35.3-44.9) % Plt Count 275 (140-400) K/mcL Neutrophils # 5.2 (1.6-8.9) K/mcL BMP 07/02/17 04:45 Sodium 140 Potassium 4.4 Chloride 106 Carbon Dioxide 27 BUN 23 Creatinine 1.42 H Glucose 99 Calcium 9.5 - ABG Interpretation ABG results: PT/INR, D-dimer PT 11.0 Seconds (9.4-12.1) 07/01/17 19:42 - Impressions Impressions Ribs X-Ray 07/02/17 23:37 IMPRESSION: 1. Acute minimally displaced fractures of the anterior right 7th and 8th ribs with a possible nondisplaced fracture of the anterior right 6th rib. 2. Bony demineralization partially limits evaluation for fractures. D/ / Lamont Krishnan MD / Lamont Krishnan MD Interpreting Provider: Lamont Krishnan MD Consult Discharge Plan - Plan Referrals: Mary Puri DO [Primary Care Provider] -
[2017-07-02] MEDS: OXYCODONE Oral CONC 10 MG/0.5 ML ORAL.SYG SL PRN ×2 (16:07→22:29)
--- NOTE | 2017-07-02 19:25 | Electrocardiograph Report ---
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
--- NOTE | 2017-07-02 19:55 | Orthopedic Consult Note ---
Date of Encounter: 07/02/17 Time of Encounter: 19:53 Assessment and Plan (1) Knee fracture, right Current Visit: Yes Status: Acute The diagnosis and treatment plan were discussed with Azucena. We will treat this fracture nonoperatively. She may be WBAT in the knee immobilizer. Up with PT as able. Follow up in 2 weeks in office. History of Present Illness Chief complaint: Right knee patella fracture HPI: Ms. Michlele is a 66 year old female with a PMH of COPD, HTN, HLD, DM2, Fibromyalgia who presents after a mechanical fall after tripping over a rug. Denies chest pain or shortness of breath prior to fall. Right knee pain on presentation to the ED with difficulty ambulating. CT scan revealed non- displaced lateral patella fracture. Denies any numbness or tingling or neuro symptoms distally. Orthopedics consulted to evaluate the fracture. Past Med Surg Social Fam HX - Past Medical History Medical history: arthritis, asthma, cardiomyopathy, COPD, diabetes, fibromyalgia , hypertension, renal disease, other Psychiatric history: anxiety, depression - Past Surgical History Surgical History: other - Social History Smoking Status: Never smoker Smokeless Tobacco Status: No Alcohol use: none Drug use: none - Family History Mother Adopted: [place]: Eda Age: 78 Family Member Ethnicity: Non- Living Status: Age at : 78 Cause of : brain aneurysm Hx Family Cardiac Disorders: Yes Hx Family Respiratory Disorders: Yes (tuberculosis) Hx Family Cancer: No Hx Family GI Disorders: Yes Hx Family Endocrine Disorder: No Hx Family Neuromuscular Disorders: No Hx Family Neurologic Disorders: No Hx Family HEENT Disorders: No Hx Family Autoimmune Disorders: No Father Adopted: [place]: Mateo Age: 80 Family Member Ethnicity: Non- Living Status: Age at : 80 Cause of : heart attack Hx Family Cardiac Disorders: Yes (angina, heart disease) Medications and Allergies Pravastatin Sodium [Pravachol] 20 mg PO DAILY 11/28/14 [History] Albuterol Sulfate [Albuterol Inhaler] 2 puff IH Q4HR PRN 01/11/15 [History] Gabapentin [Neurontin] 600 mg PO HS 01/11/15 [History] Meclizine [Antivert] 25 mg PO BID 01/11/15 [History] Montelukast [Singulair] 10 mg PO DAILY 10/13/15 [History] Vitamin B Complex [B Complex] 1 each PO DAILY 01/11/15 [History] Albuterol Neb [Proventil Neb] 2.5 mg IH QID PRN #120 inhsol 06/05/15 [Rx] Acetaminophen [Tylenol] 500 mg PO Q6HR PRN 01/21/17 [History] Colesevelam [Welchol] 1,875 mg PO TID 01/21/17 [History] DiphenhydraMINE [Benadryl] 25 mg PO Q8HR PRN 01/21/17 [History] Duloxetine HCl [Cymbalta] 60 mg PO DAILY 01/21/17 [History] Furosemide [Lasix] 20 mg PO DAILY PRN 01/21/17 [History] Labetalol [Trandate] 100 mg PO BID 01/21/17 [History] Lactase [Lactaid] 9,000 unit PO DAILY PRN 01/21/17 [History] Levothyroxine [Synthroid] 88 mcg PO 0630 01/21/17 [History] Loperamide [Imodium] 2 mg PO QID PRN 01/21/17 [History] Loratadine [Allergy Relief] 10 mg PO DAILY 01/21/17 [History] Metformin HCl [Glucophage] 1,000 mg PO BID 01/21/17 [History] Omeprazole [PriLOSEC] 40 mg PO DAILY 01/21/17 [History] Promethazine [Phenergan] 12.5 - 25 mg PO BID PRN 01/21/17 [History] SUMAtriptan succinate [Imitrex] 50 mg PO Q2H PRN 01/21/17 [History] Docusate [Colace] 100 mg PO BID PRN #30 capsule 03/15/17 [Rx] Benzonatate [Tessalon] 200 mg PO TID PRN #30 capsule 04/09/17 [Rx] BuPROPion XL (24 HR) [Wellbutrin XL] 150 mg PO DAILY 07/01/17 [History] Melatonin 10 mg PO HS 07/01/17 [History] Oxycodone HCl/Acetaminophen [Percocet 7.5-325 mg Tablet] 1 tab PO QID 07/01/17 [ History] clonazePAM [Klonopin] 0.5 mg PO BID PRN 07/01/17 [History] 3 Allergy/AdvReac Type Severity Reaction Status Date / Time aspirin Allergy Anaphylaxis Verified 07/01/17 15:37 Buspirone [From BuSpar] Allergy Rash Verified 07/01/17 15:37 caffeine Allergy Anaphylaxis Verified 07/01/17 15:37 chlorpromazine Allergy Itching Verified 07/01/17 15:37 [From Thorazine] codeine Allergy Itching Verified 07/01/17 15:37 lorazepam [From Ativan] Allergy Hives Verified 07/01/17 15:37 prochlorperazine Allergy Hives Verified 07/01/17 15:37 [From Compazine] propoxyphene [From Darvon] AdvReac Abdominal Verified 07/01/17 15:37 Pain tramadol AdvReac Nausea Verified 07/01/17 15:37 All Systems Reviewed: The remainder of the systems were reviewed and are negative Physical Exam - Constitutional Vitals: Temp Pulse Resp BP Pulse Ox 98.8 F 90 14 128/70 95 07/02/17 18:58 07/02/17 18:58 07/02/17 18:58 07/02/17 18:58 07/02/17 18:58 Exam: Consult Exam: Constitutional -Vitals reviewed HEENT: -Laceration over face and ecchymosis over both eyes -Deformity over nose Psychiatric -The patient is fully alert and oriented x 3. Chest: TTP over right lateral ribs Respiratory: -Respiratory effort normal Abdomen: -Soft abdomen -Non tender -Non distended: Left upper extremity: -No deformities. The overlying skin is intact. No obvious signs of acute trauma. -No tenderness to palpation throughout. -No significant pain with passive motion of the shoulder, elbow, wrist, and fingers within the limits of the bed. -Able to make an "OK" sign, cross the index and long fingers, and extend the thumb. -Sensation grossly intact to light touch throughout the median, radial, and ulnar distributions. -Radial pulse is present; Fingers have good capillary refill. Right upper extremity: -No deformities. The overlying skin is intact. No obvious signs of acute trauma. -No tenderness to palpation throughout. -No significant pain with passive motion of the shoulder, elbow, wrist, and fingers within the limits of the bed. -Able to make an "OK" sign, cross the index and long fingers, and extend the thumb. -Sensation grossly intact to light touch throughout the median, radial, and ulnar distributions. -Radial pulse is present; Fingers have good capillary refill. Left lower extremity: -No deformities. The overlying skin is intact. No obvious signs of acute trauma. -No tenderness to palpation throughout. -No pain with passive motion of the hip, knee, ankle, and toes within the limits of the bed. -No pain with axial loading of the thigh. -Able to dorsiflex and plantarflex the ankle and toes. -Sensation is grossly intact to light touch throughout the sural, saphenous, superficial peroneal, and deep peroneal distributions. -Toes have good capillary refill. Right lower extremity: -No deformities. The overlying skin is intact. No obvious signs of acute trauma. -TTP over patella -ROM deferred due to known fracture -No pain with axial loading of the thigh. -Able to dorsiflex and plantarflex the ankle and toes. -Able to straight leg raise -Sensation is grossly intact to light touch throughout the sural, saphenous, superficial peroneal, and deep peroneal distributions. -Toes have good capillary refill. Results - Labs Result Diagrams: 07/02/17 04:45 07/02/17 04:45 Labs: Abnormal lab results RBC 3.55 M/mcL (3.82-4.97) L 07/02/17 04:45 Hgb 9.5 g/dL (11.5-15.4) L 07/02/17 04:45 Hct 31.3 % (35.3-44.9) L 07/02/17 04:45 MCH 26.8 pg (28.0-33.3) L 07/02/17 04:45 MCHC 30.4 g/dL (31.6-35.5) L 07/02/17 04:45 RDW 14.8 % (11.5-14.5) H 07/02/17 04:45 MPV 9.2 fL (9.4-12.4) L 07/02/17 04:45 Creatinine 1.42 mg/dL (0.60-1.20) H 07/02/17 04:45 Est GFR ( Amer) 45 (> 60) L 07/02/17 04:45 Est GFR (Non-Af Amer) 37 (> 60) L 07/02/17 04:45 POC Glucose 108 mg/dL (58-89) H 07/02/17 12:30 H & H 07/02/17 Range/Units 04:45 Hgb 9.5 L (11.5-15.4) g/dL Hct 31.3 L (35.3-44.9) % All other labs normal. - Diagnostic results Knee x-ray: report reviewed, image reviewed Knee CT: report reviewed, image reviewed (Non-displaced fracture through lateral patella. Patellofemoral OA.) Consult Discharge Plan - Plan Referrals: Mary Puri DO [Primary Care Provider] -
[2017-07-02] MEDS: Melatonin 3 MG TABLET PO SCH (20:41)
[2017-07-02] MEDS: Gabapentin 300 MG CAPSULE PO SCH (20:42)
[2017-07-02] MEDS: Insulin LISPRO 300 UNITS/3 ML VIAL SQ SCH (21:12)
[2017-07-03] MEDS: SUMAtriptan succinate 50 MG TABLET PO PRN ×2 (00:39→15:53)
[2017-07-03] MEDS: clonazePAM 0.5 MG TABLET PO PRN ×2 (00:51→21:11)
[2017-07-03] MEDS: *HR* HYDROcodone/Acet 5/325 mg TABLET PO PRN ×4 (01:20→23:20)
[2017-07-03 02:17] LABS: Basophils % 0.3 %; Eosinophils # 0.3 K/mcL (0.0-0.6); Eosinophils % 4.2 %; Hematocrit 28.9 % (35.3-44.9); Hemoglobin 8.9 g/dL (11.5-15.4); Immature Granulocytes % 0.3 % (0-4); Lymphocytes # 1.9 K/mcL (0.6-4.6); Lymphocytes % 28.8 %; Mean Corpuscular HGB Conc 30.8 g/dL (31.6-35.5); Mean Corpuscular Hemoglobin 27.1 pg (28.0-33.3); Mean Corpuscular Volume 88.1 fL (83.0-100.0); Mean Platelet Volume 8.8 fL (9.4-12.4); Monocytes # 0.5 K/mcL (0.0-1.3); Monocytes % 7.3 %; Platelet Count 245 K/mcL (140-400); Red Blood Count 3.28 M/mcL (3.82-4.97); Red Cell Distribution Width 14.9 % (11.5-14.5); Segmented Neutrophils % 59.1 %
[2017-07-03 02:35] LABS: Calcium 8.8 mg/dL (8.6-10.3); Potassium 3.9 mEq/L (3.5-5.1)
[2017-07-03] MEDS: OXYCODONE Oral CONC 10 MG/0.5 ML ORAL.SYG SL PRN ×3 (06:41→19:35)
[2017-07-03] MEDS: *HR* Heparin 5,000 UNIT/ML VIAL SQ SCH ×3 (06:41→20:56)
[2017-07-03] MEDS: BuPROPion XL (24 HR) 150 MG TABLET PO SCH (08:39)
[2017-07-03] MEDS: Vitamin B Complex/Vit C/Vit E 1 EACH TABLET PO SCH (08:39)
[2017-07-03] MEDS: Loratadine 10 MG TABLET PO SCH (08:40)
--- NOTE | 2017-07-03 14:09 | Internal Med Progress Note ---
Date of Encounter: 07/03/17 Time of Encounter: 11:15 - Assessment and plan (1) Knee fracture, right Current Visit: Yes Status: Acute Assessment and plan: Patellar fracture. Orthopedics evaluated patient. Recommended conservative management. Evaluated by physical therapy. Recommended placement to skilled rehabilitation. 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 (2) Nasal laceration Current Visit: Yes Status: Acute Assessment and plan: Patient has bilateral nasal bone fractures which are not displaced. I discussed her case with ENT. Recommend outpatient follow-up in 1 week as nasal bones are nondisplaced. Qualifiers: Encounter type: initial encounter Qualified Code(s): S01.21XA - Laceration without foreign body of nose, initial encounter (3) REGINE (acute kidney injury) Current Visit: Yes Status: Acute Assessment and plan: Improved. Patient does appear to have chronic kidney disease stage III. Creatinine 1.39 today (4) HTN (hypertension) Current Visit: Yes Status: Chronic Assessment and plan: Controlled at this time. Patient has been having intermittent elevations. Could be due to pain. We will monitor and adjust antihypertensive regimen accordingly Qualifiers: Hypertension type: essential hypertension Qualified Code(s): I10 - Essential (primary) hypertension (5) Hypothyroid Current Visit: Yes Status: Chronic Assessment and plan: Continue levothyroxin Qualifiers: Hypothyroidism type: unspecified Qualified Code(s): E03.9 - Hypothyroidism , unspecified (6) Diabetes mellitus Current Visit: Yes Status: Chronic Assessment and plan: Well-controlled. 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 Control with current pain medication regimen. Concerned about managing herself at home. Was evaluated by physical therapy this morning and recommended placement to skilled rehabilitation. - Constitutional Vitals: Temp Pulse Resp BP Pulse Ox 98.2 F 73 16 136/84 98 07/03/17 10:38 07/03/17 10:38 07/03/17 10:38 07/03/17 10:38 07/03/17 10:38 General appearance: Present: cooperative, A&O X 3, answers questions appropriately - Head Additional comments: Improving ecchymosis over her orbits. Nasal swelling has improved. No signs of displaced nasal bones - Eye Eye exam: Present: EOMI, PERRL, conjuntiva pink, sclera anicteric - Respiratory Respiratory exam: Present: chest wall tenderness (Right-sided), CTAB. Absent: accessory muscle use, rales, rhonchi, wheezes - Cardiovascular Cardiovascular exam: Present: RRR, +S1, +S2. Absent: diastolic murmur, gallop, rubs, systolic murmur - GI/Abdominal GI/Abdominal exam: Present: normal bowel sounds, soft, no peritoneal signs. Absent: distended, tenderness - Extremities Exam Extremities exam: Present: tenderness (Right knee), warm, radial pulses palpable and symmetrical. Absent: calf tenderness, cyanotic, pedal edema Internal Medicine: Result - Labs CBC & Chem 7: 07/03/17 01:29 07/03/17 01:29 Labs: Short CBC 07/03/17 Range/Units 01:29 WBC 6.7 (4.3-11.1) K/mcL Hgb 8.9 L (11.5-15.4) g/dL Hct 28.9 L (35.3-44.9) % Plt Count 245 (140-400) K/mcL Neutrophils # 4.0 (1.6-8.9) K/mcL BMP 07/03/17 01:29 Sodium 139 Potassium 3.9 Chloride 106 Carbon Dioxide 26 BUN 17 Creatinine 1.39 H Glucose 99 Calcium 8.8 - ABG Interpretation ABG results: PT/INR, D-dimer PT 11.0 Seconds (9.4-12.1) 07/01/17 19:42 - VTE Documentation of Mechanical Device: Venous foot pump, device Consult Discharge Plan - Plan Referrals: Mary Puri DO [Primary Care Provider] - Elsie Sharp MD [Non-Partnered Physician] - (in 1 week for nasal bone fractures)
[2017-07-03] MEDS: Insulin LISPRO 300 UNITS/3 ML VIAL SQ SCH (20:51)
[2017-07-03] MEDS: Melatonin 3 MG TABLET PO SCH (20:54)
[2017-07-03] MEDS: Gabapentin 300 MG CAPSULE PO SCH (20:56)
[2017-07-04] MEDS: SUMAtriptan succinate 50 MG TABLET PO PRN (03:27)
[2017-07-04] MEDS: OXYCODONE Oral CONC 10 MG/0.5 ML ORAL.SYG SL PRN ×2 (03:29→11:30)
[2017-07-04] MEDS: *HR* HYDROcodone/Acet 5/325 mg TABLET PO PRN ×2 (07:33→13:44)
[2017-07-04] MEDS: *HR* Heparin 5,000 UNIT/ML VIAL SQ SCH (07:34)
[2017-07-04] MEDS: Vitamin B Complex/Vit C/Vit E 1 EACH TABLET PO SCH (08:20)
[2017-07-04] MEDS: Loratadine 10 MG TABLET PO SCH (08:21)
[2017-07-04] MEDS: BuPROPion XL (24 HR) 150 MG TABLET PO SCH (08:21)
--- NOTE | 2017-07-04 09:43 | Discharge Summary ---
- NOTES TO OUTPATIENT PROVIDER Notes to Outpatient Provider: Patient admitted after fall with fractures involving her right ribs, nasal bones and right patella. Conservative management. Being transferred to correction facility for rehabilitation. Needs follow-up with orthopedics and ENT as outpatient for further management. Date of Encounter: 07/04/17 Time of Encounter: 09:10 - Discharge Diagnosis (1) Knee fracture, right Priority: Primary Status: Acute (2) Nasal laceration Priority: Secondary Status: Acute Qualifiers: Encounter type: initial encounter Qualified Code(s): S01.21XA - Laceration without foreign body of nose, initial encounter (3) REGINE (acute kidney injury) Priority: Secondary Status: Acute (4) HTN (hypertension) Priority: Secondary Status: Chronic Qualifiers: Hypertension type: essential hypertension Qualified Code(s): I10 - Essential (primary) hypertension (5) Hypothyroid Priority: Secondary Status: Chronic Qualifiers: Hypothyroidism type: unspecified Qualified Code(s): E03.9 - Hypothyroidism , unspecified (6) Diabetes mellitus Priority: Secondary Status: Chronic Qualifiers: Diabetes mellitus type: type 2 Diabetes mellitus ad terminal makeup operator insulin use: unspecified penitentiary insulin use status Diabetes mellitus complication status : without complication Qualified Code(s): E11.9 - Type 2 diabetes mellitus without complications (7) Right rib fracture Priority: Secondary Status: Acute Qualifiers: Encounter type: initial encounter Rib fracture type: multiple ribs Fracture type: closed Qualified Code(s): S22.41XA - Multiple fractures of ribs , right side, initial encounter for closed fracture (8) Nasal bone fractures Priority: Secondary Status: Acute Qualifiers: Encounter type: initial encounter Fracture type: closed Qualified Code(s) : S02.2XXA - Fracture of nasal bones, initial encounter for closed fracture (9) DVT prophylaxis Priority: Secondary Status: Acute Hospital course: Ms. Michelle is a 66 year old female patient with a history of severe anxiety disorder, hypothyroidism, hypertension, diabetes mellitus and possible underlying chronic kidney disease stage III who was hospitalized here after a fall with loss of consciousness and concussion. She was found to have multiple fractures involving her right-sided ribs, bilateral nasal bones and right patella. She was evaluated by orthopedics and recommended conservative management for her right knee fracture. Her right rib fractures are nondisplaced/minimally displaced. Conservative management for that. Patient is receiving incentive spirometry. Pain control with oral narcotic medications. For her nasal bone fractures, ENT recommends outpatient follow-up in 1 week since then nondisplaced. At this time she was evaluated by physical therapy and recommended placement to skilled rehabilitation. She is stable to be discharged there. She will continue physical therapy and pain control. She will follow up with her primary care provider, orthopedics and ENT as outpatient for further management. Discharge discussed with: patient, nurse - Time Spent with Patient Total time spent providing and/or coordinating discharge services: Greater than 30 minutes (40 min) - Discharge Medications Prescriptions: clonazePAM [Klonopin] 0.5 mg PO BID 7 Days #14 tablet Cyclobenzaprine [Flexeril] 10 mg PO TID PRN #20 tablet PRN Reason: muscle spasms Labetalol [Trandate] 200 mg PO BID #60 tablet OxyCODONE Immed Rel [Roxicodone 10 MG] 10 mg PO Q6H 5 Days #20 tab Home Medications: Pravastatin Sodium [Pravachol] 20 mg PO DAILY 11/28/14 [History] Albuterol Sulfate [Albuterol Inhaler] 2 puff IH Q4HR PRN 01/11/15 [History] Gabapentin [Neurontin] 600 mg PO HS 01/11/15 [History] Meclizine [Antivert] 25 mg PO BID 01/11/15 [History] Montelukast [Singulair] 10 mg PO DAILY 01/11/15 [History] Vitamin B Complex [B Complex] 1 each PO DAILY 01/11/15 [History] Albuterol Neb [Proventil Neb] 2.5 mg IH QID PRN #120 inhsol 06/05/15 [Rx] Acetaminophen [Tylenol] 500 mg PO Q6HR PRN 01/21/17 [History] Colesevelam [Welchol] 1,875 mg PO TID 01/21/17 [History] DiphenhydraMINE [Benadryl] 25 mg PO Q8HR PRN 01/21/17 [History] Duloxetine HCl [Cymbalta] 60 mg PO DAILY 01/21/17 [History] Furosemide [Lasix] 20 mg PO DAILY PRN 01/21/17 [History] Lactase [Lactaid] 9,000 unit PO DAILY PRN 01/21/17 [History] Levothyroxine [Synthroid] 88 mcg PO 0630 01/21/17 [History] Loperamide [Imodium] 2 mg PO QID PRN 01/21/17 [History] Loratadine [Allergy Relief] 10 mg PO DAILY 01/21/17 [History] Metformin HCl [Glucophage] 1,000 mg PO BID 01/21/17 [History] Omeprazole [PriLOSEC] 40 mg PO DAILY 01/21/17 [History] Promethazine [Phenergan] 12.5 - 25 mg PO BID PRN 01/21/17 [History] SUMAtriptan succinate [Imitrex] 50 mg PO Q2H PRN 01/21/17 [History] Docusate [Colace] 100 mg PO BID PRN #30 capsule 03/15/17 [Rx] Benzonatate [Tessalon] 200 mg PO TID PRN #30 capsule 04/09/17 [Rx] BuPROPion XL (24 HR) [Wellbutrin Xl] 150 mg PO DAILY 07/01/17 [History] Melatonin 10 mg PO HS 07/01/17 [History] Cyclobenzaprine [Flexeril] 10 mg PO TID PRN #20 tablet 07/04/17 [Rx] Labetalol [Trandate] 200 mg PO BID #60 tablet 07/04/17 [Rx] OxyCODONE Immed Rel [Roxicodone 10 MG] 10 mg PO Q6H 5 Days #20 tab 07/04/17 [Rx] clonazePAM [Klonopin] 0.5 mg PO BID 7 Days #14 tablet 07/04/17 [Rx] Allergies/Adverse Reactions: 3 Allergy/AdvReac Type Severity Reaction Status Date / Time aspirin Allergy Anaphylaxis Verified 07/01/17 15:37 Buspirone [From BuSpar] Allergy Rash Verified 07/01/17 15:37 caffeine Allergy Anaphylaxis Verified 07/01/17 15:37 chlorpromazine Allergy Itching Verified 07/01/17 15:37 [From Thorazine] codeine Allergy Itching Verified 07/01/17 15:37 lorazepam [From Ativan] Allergy Hives Verified 07/01/17 15:37 prochlorperazine Allergy Hives Verified 07/01/17 15:37 [From Compazine] propoxyphene [From Darvon] AdvReac Abdominal Verified 07/01/17 15:37 Pain tramadol AdvReac Nausea Verified 07/01/17 15:37 Date of admission: 07/01/17 20:18 Primary care physician: Mary Puri DO Consults: 07/02/17 08:23 Consult to Orthopedic Surgery [CONS] Routine Consulting Provider: Orthoped[facility] Reason for Consult: Right patella fracture; Ortho called by ED Call Completed: Yes 07/03/17 13:20 Consult to Roving Can Tender [CONS] Routine Reason for SW Consult: discharge planning Discharging clinician: Ingrid Bernardo Anticipated date of discharge: 07/04/17 - Constitutional Vitals: Temp Pulse Resp BP Pulse Ox 97.8 F 75 16 169/97 93 07/04/17 07:30 07/04/17 07:30 07/04/17 07:30 07/04/17 07:30 07/04/17 07:30 General appearance: Present: cooperative, A&O X 3, answers questions appropriately - Head Additional comments: Swelling on right frontal scalp region. Due to subcutaneous edema from fall and injury - Eye Eye exam: Present: periorbital swelling, PERRL, conjuntiva pink, sclera anicteric Additional comments: ecchymosis around both her eyes. Improving - ENT Additional comments: Nasal laceration on sutured. No bleeding noted. Nasal swelling has resolved - Neck Neck exam general surgery: Present: supple, trachea midline. Absent: lymphadenopathy - Respiratory Respiratory exam: Present: chest wall tenderness (Right-sided), CTAB. Absent: accessory muscle use, rales, rhonchi, wheezes - Cardiovascular Cardiovascular exam: Present: RRR, +S1, +S2. Absent: diastolic murmur, gallop, rubs, systolic murmur - Extremities Exam Extremities exam: Present: tenderness (Right knee), warm, radial pulses palpable and symmetrical. Absent: calf tenderness, cyanotic, pedal edema - Neurological Exam Neurological exam: Present: alert, oriented X3, no focal deficits, strengths equal and symetr throughout. Absent: facial droop, speech deficit - Patient Status Disposition: Transfer SNF Condition: Fair Functional capacity at discharge: wheelchair bound Overall status at discharge: patient is progressing back to baseline - Discharge Instructions Instructions: Fall Prevention (DC) Follow Up With: Elsie Sharp MD [Non-Partnered Physician] - (in 1 week for nasal bone fractures) Salbador Rivera MD [Non-Partnered Physician] - (in 2 weeks) Mary Puri DO [Primary Care Provider] - (in 1-2 weeks) - Diet and Activity Activity: as per physical therapy Diet: diabetic diet, low fat, low cholesterol, low salt diet - VTE Documentation of Mechanical Device: Venous foot pump, device
--- NOTE | 2017-07-04 09:50 | Physician Discharge Referral ---
ExtendedCare Referral Info Provider in Charge after Transfer: PCP Institutional Level of Care: Skilled - Diagnosis (1) Knee fracture, right Priority: Primary Status: Acute (2) Nasal laceration Priority: Secondary Status: Acute (3) REGINE (acute kidney injury) Priority: Secondary Status: Acute (4) HTN (hypertension) Priority: Secondary Status: Chronic (5) Hypothyroid Priority: Secondary Status: Chronic (6) Diabetes mellitus Priority: Secondary Status: Chronic (7) Right rib fracture Priority: Secondary Status: Acute (8) Nasal bone fractures Priority: Secondary Status: Acute (9) DVT prophylaxis Priority: Secondary Status: Acute Prognosis: Fair Aware of Diagnosis: Patient Aware of Prognosis: Patient - Transfer Medications Prescriptions: clonazePAM [Klonopin] 0.5 mg PO BID 7 Days #14 tablet Cyclobenzaprine [Flexeril] 10 mg PO TID PRN #20 tablet PRN Reason: muscle spasms Labetalol [Trandate] 200 mg PO BID #60 tablet OxyCODONE Immed Rel [Roxicodone 10 MG] 10 mg PO Q6H 5 Days #20 tab Home Medications: Pravastatin Sodium [Pravachol] 20 mg PO DAILY 11/28/14 [History] Albuterol Sulfate [Albuterol Inhaler] 2 puff IH Q4HR PRN 01/11/15 [History] Gabapentin [Neurontin] 600 mg PO HS 01/11/15 [History] Meclizine [Antivert] 25 mg PO BID 01/11/15 [History] Montelukast [Singulair] 10 mg PO DAILY 01/11/15 [History] Vitamin B Complex [B Complex] 1 each PO DAILY 01/11/15 [History] Albuterol Neb [Proventil Neb] 2.5 mg IH QID PRN #120 inhsol 06/05/15 [Rx] Acetaminophen [Tylenol] 500 mg PO Q6HR PRN 01/21/17 [History] Colesevelam [Welchol] 1,875 mg PO TID 01/21/17 [History] DiphenhydraMINE [Benadryl] 25 mg PO Q8HR PRN 01/21/17 [History] Duloxetine HCl [Cymbalta] 60 mg PO DAILY 01/21/17 [History] Furosemide [Lasix] 20 mg PO DAILY PRN 01/21/17 [History] Lactase [Lactaid] 9,000 unit PO DAILY PRN 01/21/17 [History] Levothyroxine [Synthroid] 88 mcg PO 0630 01/21/17 [History] Loperamide [Imodium] 2 mg PO QID PRN 01/21/17 [History] Loratadine [Allergy Relief] 10 mg PO DAILY 01/21/17 [History] Metformin HCl [Glucophage] 1,000 mg PO BID 01/21/17 [History] Omeprazole [PriLOSEC] 40 mg PO DAILY 01/21/17 [History] Promethazine [Phenergan] 12.5 - 25 mg PO BID PRN 01/21/17 [History] SUMAtriptan succinate [Imitrex] 50 mg PO Q2H PRN 01/21/17 [History] Docusate [Colace] 100 mg PO BID PRN #30 capsule 03/15/17 [Rx] Benzonatate [Tessalon] 200 mg PO TID PRN #30 capsule 04/09/17 [Rx] BuPROPion XL (24 HR) [Wellbutrin Xl] 150 mg PO DAILY 07/01/17 [History] Melatonin 10 mg PO HS 07/01/17 [History] Cyclobenzaprine [Flexeril] 10 mg PO TID PRN #20 tablet 07/04/17 [Rx] Labetalol [Trandate] 200 mg PO BID #60 tablet 07/04/17 [Rx] OxyCODONE Immed Rel [Roxicodone 10 MG] 10 mg PO Q6H 5 Days #20 tab 07/04/17 [Rx] clonazePAM [Klonopin] 0.5 mg PO BID 7 Days #14 tablet 07/04/17 [Rx] Allergies/Adverse Reactions: 3 Allergy/AdvReac Type Severity Reaction Status Date / Time aspirin Allergy Anaphylaxis Verified 07/01/17 15:37 Buspirone [From BuSpar] Allergy Rash Verified 07/01/17 15:37 caffeine Allergy Anaphylaxis Verified 07/01/17 15:37 chlorpromazine Allergy Itching Verified 07/01/17 15:37 [From Thorazine] codeine Allergy Itching Verified 07/01/17 15:37 lorazepam [From Ativan] Allergy Hives Verified 07/01/17 15:37 prochlorperazine Allergy Hives Verified 07/01/17 15:37 [From Compazine] propoxyphene [From Darvon] AdvReac Abdominal Verified 07/01/17 15:37 Pain tramadol AdvReac Nausea Verified 07/01/17 15:37 - Respiratory Orders Smoking Cessation: Smoking cessation has been advised. For more information, call the [place] Tobacco Quit Line at 1-072-OVFR-NOW. - Ancillary Orders May consult with Dentist, Cloth Printer Helper, Horse Race Starter PRN - Advance Directives Code Status: Full Code - Mobility Orders Other (per PT) - Rehabiliation Orders Rehab Potential: Fair Rehab Orders: Evaluation for Physical Therapy, Evaluation for Occupational Therapy Other: She may be WBAT in the knee immobilizer - Diet Orders No Concentrated Sweets (diabetic), Cardiac CERTIFICATION: I certify that the transfer of the above named patient to an Extended Care Facility is necessary for the continuing treatment of the diagnosis listed. The above information is true and accurate reflection of patient's current condition. Confidential - Redisclosure prohibited without a patient's written consent.
[2017-07-04 11:17] VITALS: BP 122/73
== END 2017-07-04 14:09 | DRG 930 ==
LOC: EMEROO 15:25 → 3NENU 15:25 → SUATTDRO 20:18 → 3NENU 21:09
PROVIDERS: ADMIT Internal Medicine; ATTEND Internal Medicine

== ENCOUNTER 2020-11-09 05:14 | Observation (INO) ==
[2020-11-09] MEDS ORDERED: Isovue-370 500 ML BOTTLE IVP ONE (05:24)
[2020-11-09] MEDS ORDERED: Morphine Sulfate 2 MG/ML SYRINGE IVP ONE (05:24)
[2020-11-09] MEDS ORDERED: Ondansetron 4 MG/2 ML VIAL IVP ONE ×2 (05:24→07:45)
[2020-11-09] MEDS ORDERED: 0.9 % Sodium Chloride 1,000 ML IVC ONE (05:25)
[2020-11-09 05:49] LABS: Basophils % 0.3 %; Eosinophils # 0.3 K/mcL (0.0-0.6); Eosinophils % 2.4 %; Hemoglobin 12.4 g/dL (11.5-15.4); Immature Granulocytes % 0.4 % (0-4); Mean Corpuscular HGB Conc 31.8 g/dL (31.6-35.5); Mean Corpuscular Hemoglobin 27.6 pg (28.0-33.3); Mean Corpuscular Volume 86.9 fL (83.0-100.0); Mean Platelet Volume 8.5 fL (9.4-12.4); Monocytes # 0.4 K/mcL (0.0-1.3); Neutrophils # 12.1 K/mcL (1.6-8.9); Platelet Count 310 K/mcL (140-400); Red Blood Count 4.49 M/mcL (3.82-4.97); Red Cell Distribution Width 14.6 % (11.5-14.5); Segmented Neutrophils % 86.9 %; White Blood Count 13.9 K/mcL (4.3-11.1)
[2020-11-09 06:25] LABS: Alanine Aminotransferase 9 Units/L (7-52); Albumin 4.6 g/dL (3.5-5.7); Albumin/Globulin Ratio 1.3 (1.1-2.2); Alkaline Phosphatase 90 Units/L (34-104); Aspartate Amino Transferase 13 Units/L (13-39); BUN/Creatinine Ratio 14 (6-26); Bilirubin,Direct 0.1 mg/dL (0.0-0.2); Bilirubin,Indirect 0.4 mg/dL (0.0-1.0); Bilirubin,Total 0.5 mg/dL (0.3-1.0); Blood Urea Nitrogen 24 mg/dL (8-23); Carbon Dioxide 25 mEq/L (23-29); Chloride 99 mEq/L (98-107); Globulin 3.6 g/dL (2.4-3.5); Glucose 187 mg/dL (70-105); Lipase 26 Units/L (11-82); Osmolality,Calculated 295 (280-300); Potassium 3.9 mEq/L (3.5-5.1); Sodium 138 mEq/L (136-145); Total Protein 8.2 g/dL (6.4-8.9); eGFR For African Americans 35 (> 60); eGFR For Non-African Americans 29 (> 60)
[2020-11-09 06:34] LABS: Troponin I < 0.03 ng/mL (< 0.04)
[2020-11-09 06:44] LABS: Adenovirus Not Detected (Not Detect); Bordetella Pertussis Not Detected (Not Detect); Chlamydophila pneumoniae Not Detected (Not Detect); Coronavirus 229E Not Detected (Not Detect); Coronavirus HKU1 Not Detected (Not Detect); Coronavirus NL63 Not Detected (Not Detect); Coronavirus OC43 Not Detected (Not Detect); Human Metapneumovirus Not Detected (Not Detect); Human Rhinovirus/Enterovirus Not Detected (Not Detect); Influenza A Subtype 2009 H1 Not Detected (Not Detect); Influenza B Not Detected (Not Detect); Mycoplasma pneumoniae Not Detected (Not Detect); Parainfluenza Virus 1 Not Detected (Not Detect); Parainfluenza Virus 2 Not Detected (Not Detect); Parainfluenza Virus 3 Not Detected (Not Detect); Parainfluenza Virus 4 Not Detected (Not Detect); Respiratory Syncytial Virus Not Detected (Not Detect); SARS-CoV-2 Not Detected (Not Detect)
[2020-11-09 06:50] LABS: Bilirubin,Urine Negative (Negative); Blood,Urine Negative (Negative); Clarity,Urine Clear (Clear); Color,Urine Light-Yellow (Yellow); Glucose,Urine (UA) Normal (Normal); Ketones,Urine Negative (Negative); Leukocyte Esterase,Urine Trace (Negative); Mucus,Urine Few per lpf (None-Few); Nitrite,Urine Negative (Negative); Protein,Urine 200 mg/dL (Neg-Trace); RBC,Urine 0-3 per hpf (0-3); Specific Gravity,Urine 1.013 (1.010-1.025); Urobilinogen,Urine Normal (Normal)
[2020-11-09] MEDS ORDERED: cefTRIAXone 1,000 MG in 0.9 % Sodium Chloride Mini Bag 100 ML IVPB ONE (07:38)
[2020-11-09] MEDS ORDERED: Acetaminophen 325 MG TABLET PO PRN (08:40)
[2020-11-09] MEDS ORDERED: Dextrose Gel 15 GM/37.5 ML TUBE PO PRN ×2 (08:40)
[2020-11-09] MEDS ORDERED: D5% in Water 1,000 ML IVC PRN (08:40)
[2020-11-09] MEDS ORDERED: Naloxone 0.4 MG/ML INJ IVP PRN (08:40)
[2020-11-09] MEDS ORDERED: *HR* Dextrose 50 % in Water (Vial) 50 ML VIAL IVP PRN (08:40)
[2020-11-09] MEDS ORDERED: Ringers Solution, Lactated 1,000 ML IVC SCH (08:45)
[2020-11-09] MEDS: *HR* HYDROmorphone (PF) 1 MG/ML SYRINGE IVP PRN ×4 (11:36→19:46)
[2020-11-09] MEDS: Insulin LISPRO 300 UNITS/3 ML VIAL SUBQ SCH ×2 (12:23→19:01)
[2020-11-09] MEDS ORDERED: Ipratropium/Albuterol Neb 3 ML IH PRN (14:01)
[2020-11-09] MEDS: Ringers Solution, Lactated 1,000 ML IVC SCH (16:25)
[2020-11-09] MEDS: *HR* Heparin 5,000 UNIT/ML VIAL SQ SCH (16:59)
[2020-11-09] MEDS: Ondansetron 4 MG/2 ML VIAL IVP PRN (20:00)
[2020-11-09] MEDS: Ipratropium/Albuterol Neb 3 ML IH PRN (20:23)
[2020-11-09] MEDS: clonazePAM 0.5 MG TABLET PO SCH (21:18)
[2020-11-09] MEDS: *HR* Labetalol 20 MG/4 ML SYRINGE IVP PRN (23:22)
[2020-11-10] MEDS: Ringers Solution, Lactated 1,000 ML IVC SCH (01:37)
[2020-11-10] MEDS: Insulin LISPRO 300 UNITS/3 ML VIAL SUBQ SCH ×4 (01:59→16:36)
[2020-11-10 02:59] LABS: Basophils % 0.1 %; Eosinophils # 0.1 K/mcL (0.0-0.6); Eosinophils % 1.5 %; Hematocrit 34.9 % (35.3-44.9); Hemoglobin 11.3 g/dL (11.5-15.4); Immature Granulocytes % 0.1 % (0-4); Lymphocytes # 1.2 K/mcL (0.6-4.6); Lymphocytes % 13.6 %; Mean Corpuscular HGB Conc 32.4 g/dL (31.6-35.5); Mean Corpuscular Hemoglobin 28.3 pg (28.0-33.3); Mean Corpuscular Volume 87.3 fL (83.0-100.0); Mean Platelet Volume 9.1 fL (9.4-12.4); Monocytes # 0.7 K/mcL (0.0-1.3); Monocytes % 7.9 %; Neutrophils # 6.6 K/mcL (1.6-8.9); Platelet Count 275 K/mcL (140-400); Red Cell Distribution Width 14.5 % (11.5-14.5); Segmented Neutrophils % 76.8 %; White Blood Count 8.6 K/mcL (4.3-11.1)
[2020-11-10] MEDS: *HR* HYDROmorphone (PF) 1 MG/ML SYRINGE IVP PRN ×4 (03:07→20:02)
[2020-11-10] MEDS ORDERED: Ondansetron 4 MG/2 ML VIAL IVP ONE (03:15)
[2020-11-10 03:54] LABS: Calcium 9.1 mg/dL (8.6-10.3); Magnesium 1.8 mg/dL (1.6-2.6); Phosphorous 3.4 mg/dL (2.7-4.5); Potassium 3.6 mEq/L (3.5-5.1)
[2020-11-10] MEDS: *HR* Heparin 5,000 UNIT/ML VIAL SQ SCH ×2 (06:42→16:35)
[2020-11-10] MEDS: cefTRIAXone 1,000 MG in Water for inj. (sterile) 10 ML IVP SCH (10:02)
[2020-11-10] MEDS: clonazePAM 0.5 MG TABLET PO SCH ×2 (10:02→20:01)
[2020-11-10] MEDS: Ipratropium/Albuterol Neb 3 ML IH PRN ×2 (10:34→19:37)
[2020-11-10] MEDS: *HR* Labetalol 20 MG/4 ML SYRINGE IVP PRN (23:03)
[2020-11-11] MEDS: Insulin LISPRO 300 UNITS/3 ML VIAL SUBQ SCH ×4 (00:26→20:49)
[2020-11-11] MEDS: *HR* HYDROmorphone (PF) 1 MG/ML SYRINGE IVP PRN ×3 (00:42→08:34)
[2020-11-11] MEDS: QUEtiapine Fumarate 100 MG TABLET PO SCH ×2 (01:59→20:57)
[2020-11-11] MEDS: *HR* Heparin 5,000 UNIT/ML VIAL SQ SCH ×2 (05:23→15:49)
[2020-11-11 08:18] LABS: Basophils % 0.3 %; Eosinophils # 0.3 K/mcL (0.0-0.6); Eosinophils % 4.4 %; Hematocrit 34.2 % (35.3-44.9); Immature Granulocytes % 0.1 % (0-4); Lymphocytes # 1.7 K/mcL (0.6-4.6); Lymphocytes % 23.2 %; Mean Corpuscular HGB Conc 31.3 g/dL (31.6-35.5); Mean Corpuscular Hemoglobin 27.3 pg (28.0-33.3); Mean Corpuscular Volume 87.2 fL (83.0-100.0); Mean Platelet Volume 8.9 fL (9.4-12.4); Monocytes # 0.5 K/mcL (0.0-1.3); Monocytes % 7.2 %; Neutrophils # 4.8 K/mcL (1.6-8.9); Platelet Count 239 K/mcL (140-400); Red Blood Count 3.92 M/mcL (3.82-4.97); Red Cell Distribution Width 14.2 % (11.5-14.5); Segmented Neutrophils % 64.8 %; White Blood Count 7.5 K/mcL (4.3-11.1)
[2020-11-11 08:30] LABS: Hemoglobin 10.7 g/dL (11.5-15.4)
[2020-11-11 08:34] LABS: Calcium 9.1 mg/dL (8.6-10.3); Potassium 3.6 mEq/L (3.5-5.1)
[2020-11-11] MEDS: Ondansetron 4 MG/2 ML VIAL IVP PRN (08:35)
[2020-11-11] MEDS: polyethylene glycoL 3350 17 GM POWD.PACK PO SCH (08:35)
[2020-11-11] MEDS: cefTRIAXone 1,000 MG in Water for inj. (sterile) 10 ML IVP SCH (08:36)
[2020-11-11] MEDS: clonazePAM 0.5 MG TABLET PO SCH ×2 (08:36→20:57)
[2020-11-11] MEDS: *HR* OxyCODONE/APAP 7.5/325 TABLET PO PRN (20:56)
[2020-11-12] MEDS: Insulin LISPRO 300 UNITS/3 ML VIAL SUBQ SCH ×3 (00:14→16:53)
[2020-11-12] MEDS: Ipratropium/Albuterol Neb 3 ML IH PRN ×3 (00:26→14:16)
[2020-11-12] MEDS: *HR* Heparin 5,000 UNIT/ML VIAL SQ SCH (06:35)
[2020-11-12 06:52] VITALS: TEMP 98.3
[2020-11-12] MEDS: clonazePAM 0.5 MG TABLET PO SCH (11:16)
[2020-11-12] MEDS: cefTRIAXone 1,000 MG in Water for inj. (sterile) 10 ML IVP SCH (11:17)
[2020-11-12] MEDS: polyethylene glycoL 3350 17 GM POWD.PACK PO SCH (11:17)
[2020-11-12] MEDS: *HR* OxyCODONE/APAP 7.5/325 TABLET PO PRN (11:17)
[2020-11-12 15:27] VITALS: BP 143/77; PULSE 79; O2SAT 93
== END 2020-11-12 18:40 | disposition home or self-care (01) ==
LOC: EMEROOARM 05:14 → 3ANU 05:14 → SUATTDRO 09:02 → 3ANU 10:06 → 3BNU 11-10 22:13
PROVIDERS: ADMIT Internal Medicine; ATTEND Hospitalist